=== PATIENT | female | born 1940 | race Caucasian/White ===

== ENCOUNTER 2023-10-07 14:58 | Inpatient (IN) | payer MEDICARE, OTHER, SELFPAY ==
[2023-10-07] VITALS (9 sets, daily range): BP systolic 94–141; BP diastolic 46–84; BMI 13.2
--- NOTE | 2023-10-07 09:57 | EDRN ---
Rylee Jerome PA in room w/ pt.
--- NOTE | 2023-10-07 10:01 | ED.GENMED ---
History of Present Illness
General
Chief Complaint: Back Pain
Source: patient
Time Seen by Provider: 10/07/23 09:54
Travel History
Have you had any contact with someone who has COVID-19?: No
Do you have any symptoms of coronavirus? Fever > 100 degrees, chills, cough, shortness of breath, sore throat, loss of taste or smell, muscle aches, or headache?: No
History of Present Illness
History of Present Illness:
82-year-old female presenting to the ER via EMS from [facility] for evaluation of diffuse lower back pain that has been ongoing for a few days, recently started on Bactrim for urinary tract infection, staff reportedly concerned about failure
to thrive. Patient has a noted history for dementia but is apparently in independent living at the [facility]. Patient denies any falls or traumatic injuries, focal weakness or numbness, saddle anesthesia, urinary
frequency/urgency/dysuria/hematuria/urinary incontinence or bowel incontinence, fevers or infectious symptoms. Patient has no other concerns at this time. Did not take anything for the pain prior to arrival and is unsure if she was given anything
for pain over the last few days.
Past History
Past History
ED Past Medical History: HTN, Psychiatric and Other (Dementia)
ED Past Surgical History: Cholecystectomy and Gynecological
Social History
Tobacco: Former smoker
Alcohol: None
Drug: None
Living: assisted living
Review of Systems
Review of Systems
All Other Systems: ROS reviewed and negative except as documented in HPI and ROS
Phy Exam
Physical Exam
Physical Exam:
GENERAL: Alert , in no apparent distress, very thin and cachectic, muscle wasting noted
EYE: Clear conjunctiva
NECK: Supple
ENT: o/p clr, mmm.
CARDIAC: Regular rate and rhythm, systolic murmur at the left sternal border.
LUNGS: Clear breath sounds bilaterally, no acute respiratory distress, no wheezes/rales/rhonchi
ABDOMEN: Soft, without focal tenderness, no r/g, no cvat
Back: Patient able to sit up in bed but has some discomfort while attempting movement. Diffusely tender to palpation within the lumbar spine
NEUROLOGICAL: Alert and oriented to self and place but was unable to tell me the year
SKIN: Warm and dry, skin intact.
MUSCULOSKELETAL: No edema, well perfused.
PSYCH: Normal and appropriate interaction.
Scores
Heart Failure Risk
Heart Failure Risk Score: Not Applicable
Heart Score for Chest Pain Patients
STEMI patient?: Not applicable
Withdrawal Assessment of Alcohol
Withdrawal Assessment Completed?: Not applicable
Course
Orders/Labs/Results
Orders:
Orders
10/07/23 10:00
Acetaminophen [Tylenol] 650 mg PO NOW STA
Lidocaine [Lidocaine 4% Patch] 1 patch TOPICAL NOW STA
10/07/23 10:17
Complete Blood Count/With Diff Urgent
Comprehensive Metabolic Panel Urgent
Ferritin Urgent
Comment: ADD
Folate Urgent
Comment: ADD
Iron Urgent
Comment: ADD
Total Iron Binding Urgent
Comment: ADD
Vitamin B12 Urgent
Comment: ADD
10/07/23 10:51
CT Abd/pel Without Iv Or Oral Urgent
Comment:
Reason For Exam: renal failure, recent UTI, back pain
10/07/23 11:46
US Abdomen Complete/Upper Urgent
Comment:
Reason For Exam: abnormal CT, possible carlos enrique, back pain
10/07/23 13:27
0.9% Sodium Chloride 1000 ml [Nss] 1,000 ml IV BOLUS
10/07/23 14:19
Bladder Scan As Directed
Follow Bladder Retention/Intermittent Cath Algorithm?: Yes
PRN if no void in __ hours: 6
Frequency: Per Retention Algorithm
If Bladder Scan Result >: 400
then:: Straight cath
Straight Cath As Directed
Frequency: Per Retention Algorithm
Additional Instructions: straight cath as needed per acute urinary retention algorithm for 24 hrs
Additional Instructions: for bladder scan greater than 400 mL
10/07/23 14:23
Add On- LAB Routine
Tests Added?: iron, ferritin, tibc, folate, vit b12
Admit/Transfer Patient As Directed
Co-Sign Provider:
Level of Care: Inpatient admission
Assign to:: Medical/Surgical
Physician / Group: Sheu
Diagnosis: JESUS
Reason for Hospitalization: IVFs
Expected length of stay greater than two midnights?: Yes
ELOS- Estimated Length of Stay in days: 3
I certify the patient meets the requirements for IP care: Yes
10/07/23 14:42
Code Status As Directed
Resuscitation Status: Do not resuscitate
Reached after discussion with pt or family/Healthcare POA: Yes
DNR Bracelet Application ONCE
10/07/23 16:16
Urinalysis Reflex To Culture Urgent
Date Specimen was Collected: 10/07/23
Time Specimen was Collected: 16:06
Abnormal Lab Results
10/07/23
10:17
RBC 2.66 L 10^6/uL
(4.20-5.40)
Hgb 9.3 L g/dL
(12.0-16.0)
Hct 27.3 L %
(37.0-47.0)
MCV 102.6 H fL
(81.0-99.0)
MCH 35.0 H pg
(27.0-31.0)
RDW 15.8 H %
(11.5-14.5)
Chloride 111 H mmol/L
(98-107)
Carbon Dioxide 18 L mmol/L
(22-30)
BUN 46 H mg/dl
(7-17)
Creatinine 2.3 H mg/dL
(0.6-1.0)
TIBC 161 L ug/dl
(265-497)
Ferritin 915.0 H ng/ml
(11.1-264.0)
AST 37 H U/L
(14-36)
Alkaline Phosphatase 150 H U/L
(38-126)
Albumin 3.1 L g/dl
(3.5-5.0)
10/07/23 10:17
10/07/23 10:17
Vital Signs
Initial and Last Documented VS:
Initial Vital Signs
Temp Pulse Resp BP Pulse Ox
97.5 F 74 20 141/72 96
10/07/23 09:42 10/07/23 09:42 10/07/23 09:42 10/07/23 09:42 10/07/23 09:42
Last Documented Vital Signs
Temp Pulse Resp BP Pulse Ox
97.5 F 84 16 101/84 96
10/07/23 09:42 10/07/23 16:02 10/07/23 16:02 10/07/23 16:02 10/07/23 16:02
MDM/Problems Addressed
Differential Diagnosis Includes:
Lumbar strain, spinal stenosis, compression fracture, UTI/pyelonephritis considered given patient is currently being treated for UTI however given the bilateral nature of symptoms I am less suspicious for this
MDM/Problems Addressed:
82-year-old female presenting to the emergency department for evaluation via EMS from her independent living facility for evaluation of lower back pain, symptoms initially were right-sided yesterday, today diffuse lower back. Patient is very thin
in appearance, cachectic but is otherwise hemodynamically stable. She is smiling and pleasant and does not appear in any acute distress. Labs, urine, x-ray images ordered. Will also treat pain with Tylenol and lidocaine patch.
*Radiology
Radiology exam reviewed: radiology read reviewed (L1 and L4 age-indeterminate compression fracture. There is intrahepatic dilatation and radiology is recommended to obtain an ultrasound to better evaluate)
*Pulse Oximetry
Patient hypoxic: no
*Circle Edger Interpretation
Rate: normal
Rhythm: sinus
*Critical Care Note
Total Time (30-74mins, 75-104mins- exclusive of procedures): Not Applicable
Data Reviewed
Source: family
Patient Management
Discussion with other providers: Hospitalist, [facility] staff and Other
Escalation/DeEscalation of care consider admission/obs:
10/07/2023 1320 PM: Based off of patient's labs I do not have anything to compare to so I contacted patient's senior living who does not have any pertinent labs to compare. I spoke with patient's daughter, Tonya, who states that in July patient
did have a fall and was told that she had some compression fractures but nothing was being done about the compression fractures and was pain management only. She also notes that around a year or so ago patient was at [facility] for
dehydration and had abnormal kidney function at that time but daughter is unsure as to if this is a chronic issue. Attempting to obtain records from [place] as well as daughter is going to look through patient's [facility] records and contact us
back.
10/07/2023 1328 PM: Patient's daughter returned call and her last creatinine as an outpatient was 1.67 in April 2023, BUN at that time of 31. Based off patient's presentation, lack of oral intake, worsening kidney function will admit for further
evaluation. IV fluids ordered. Hospitalist is aware and accepts for continued evaluation and treatment.
ED Attending Note
-
Portions of this chart may have been created with voice recognition software.� Occasional wrong word or��sound alike� substitutions may have occurred due to the inherent limitations of voice recognition software.
Discharge Plan
Departure
Patient Disposition: Admit
Date of Disposition: 10/07/23
Time of Disposition: 13:27
Presentation/result/management discussed w/ accepting MD/DO: Hospitalist
Discharge Problem:
JESUS (acute kidney injury), Anemia, Compression fx, lumbar spine
Interventions
Interventions:
*Risk Screen - Suicide Last Done: 10/07/23 09:40
*General Assessment Last Done: 10/07/23 09:40
*Neglect/Abuse Screening Last Done: 10/07/23 09:40
ED- Fall Risk Assessment Last Done: 10/07/23 09:40
*ED COVID-19 Vaccine History Last Done: 10/07/23 09:40
ED-Musculoskeletal Assessment Last Done: 10/07/23 09:55
[2023-10-07] MEDS: LIDOCAINE 4% PATCH 1 PATCH TOPICAL (10:08)
[2023-10-07] MEDS: TYLENOL 650 MG PO (10:09)
[2023-10-07 10:46] LABS: % Basophils 0.5 % (0-2); % Eosinophils 2.9 % (0-6); % Immature Granulocytes 0.5 % (0-0.5); % Lymphocytes 29.8 % (20.5-51.1); % Monocytes 3.1 % (1.7-9.3); % Neutrophils 63.2 % (42.2-75.2); Absolute Eosinophils 0.2 10^3/uL (0-0.7); Absolute Lymphocytes 1.6 10^3/uL (1.2-3.4); Absolute Monocytes 0.2 10^3/uL (0.1-0.6); Absolute Neutrophils 3.5 10^3/uL (1.4-6.5); Hematocrit 27.3 % (37.0-47.0); Hemoglobin 9.3 g/dL (12.0-16.0); Mean Corp Hgb Conc. 34.1 g/dL (33.0-37.0); Mean Corpuscular Volume 102.6 fL (81.0-99.0); Mean Platelet Volume 9.2 fL (7.4-10.4); Nucleated Red Blood Cells % 0 %; Platelet Count 338 10^3/uL (130-400); Red Blood Cell Count 2.66 10^6/uL (4.20-5.40); Red Cell Dist. Width 15.8 % (11.5-14.5); White Blood Cell Count 5.5 10^3/uL (4.8-10.8)
[2023-10-07 10:47] LABS: ALT (SGPT) 18 U/L (0-35); AST (SGOT) 37 U/L (14-36); Albumin 3.1 g/dl (3.5-5.0); Alkaline Phosphatase 150 U/L (38-126); Blood Urea Nitrogen 46 mg/dl (7-17); Calcium 9.8 mg/dl (8.4-10.2); Carbon Dioxide 18 mmol/L (22-30); Chloride 111 mmol/L (98-107); Estimated Creatinine Clearance 11 ml/min; Glucose 95 mg/dl (70-99); Potassium 4.3 mmol/L (3.5-5.1); Sodium 135 mmol/L (135-145); Total Bilirubin 0.8 mg/dl (0.2-1.3); Total Protein 6.7 g/dl (6.3-8.2); eGFR 20.57
--- NOTE | 2023-10-07 13:30 | EDRN ---
Pt was incontinent of large amount of urine in depends and changed w/good pericare at this time.
[2023-10-07] MEDS: NSS 1000 IV ×2 (14:07→19:33)
--- NOTE | 2023-10-07 14:31 | HPS.HSE ---
Addendum entered and electronically signed by Mary Santoyo MD 10/08/23 13:04:
discussed with patient's daughter Giovana who verbalized her understanding of code status and confirmed her agreement with patient's decision to be DNR. Code status updated accordingly
Addendum entered and electronically signed by Mary Santoyo MD 10/07/23 19:49:
I saw and examined the patient.
The [facility] NURSE or PA's note was reviewed and I agree with the note.
Comment:
82F HTN CKD COPD Rheumatoid Arthritis Dementia Anxiety/Depression presents with Bridges increased back pain concerns with failure to thrive poor oral intake. On Bactrim for UTI. Labs concerning for mild macrocytic anemia, anemia of chronic disease,
non-iron deficient, B12 wnl and JESUS on CKD initial Cr 2.3 (reported baseline 1.6). CT abd/pelvis noted moderate L1 and L4 indeterminate compression fractures and moderate intrahepatic dilatation. Abd US further noted intra and extrahepatic biliary
dilatation. Back pain improved with lidocaine patch. Endorsed chronic low oral intake, son Johnathon reports ongoing for years, 81 lbs consistent baseline per son.
Physical Exam
General: No pallor, cyanosis, or jaundice. Cachectic appearing
HEENT: Throat clear. PERRLA Normocephalic atraumatic
NECK: Supple. No JVD Carotid Bruits
RESPIRATORY: Lungs clear to auscultation. No crackles wheezes stridor
CVS: S1, S2 normal. RRR. No murmur, rub or gallop.
ABDOMEN: Soft, non-tender. No distension. BS+/normal.
EXTREMITIES: No peripheral cyanosis or edema.
CREDIT COMPLIANCE OFFICER: AOx3 conversant
#JESUS on CKDIII
#Failure to Thrive
#Hx UTI recently on Bactrim
#L1 L4 Compression fx indeterminate age
IVF gentle hydration
urinalysis appreciated not suggestive UTI
hold off on further abx for now
monitor renal function
pain control
dietary consult
PT/OT eval
Code Status Full Code for now, patient seems to indicate desire for DNR status however given history Dementia unclear capacity will confirm with daughter (called but have not been able to reach, discussed with son Johnathon who agrees with DNR status but
also defers confirmation to pt's daughter Giovana)
Original Note:
Family Physician
-
Family Physician: Chris Hall
Chief Complaint
-
Back Pain
History of Present Illness
Patient is an 82 y/o female past medical history of HTN and CKD who presents with increased lower back pain. Patient resides at the [facility], and staff is concerned about failure to thrive. Patient was recently started on Bactrim for a
urinary tract infection. Work-up in the emergency department revealed evidence of L1 and L4 compression fracture. Patient was also noted to have Cr 2.3 (per family previous Cr 1.67).
Medical History
Past Medical History
Past Medical History: Reports Other
Additional Past Medical History:
Essential Hypertension
CKD Stage IV
COPD
Rheumatoid Arthritis
Glaucoma
Dementia
Anxiety/Depression
Past Surgical History: Reports Other
Additional Past Surgical History:
Cholecystectomy
Hysterectomy
Social History
Tobacco: Former Smoker
Living: Assisted Living
Family History
Family History: Not pertinent
Allergies / Home Medications
Allergies reflects when Allergies were last updated in [facility].
Home Medications with original date entered in [facility]
Allergy/Medication List:
Allergies
Allergy/AdvReac Type Severity Reaction Status Date / Time
No Known Allergies Allergy Unverified 10/07/23 09:40
Home Medications
acetaminophen 500 mg tablet (Acetaminophen Extra Strength) 1,000 mg PO DAILY Pain 10/07/23
acetaminophen 500 mg tablet (Acetaminophen Extra Strength) 1,000 mg PO Q4HPRN PRN lower back pain 10/07/23
albuterol sulfate 2.5 mg/3 mL (0.083 %) solution for nebulization 2.5 mg inhalation Q4H PRN shortness of breath 10/07/23
diphenhydramine 25 mg-acetaminophen 500 mg tablet (Tylenol PM Extra Strength) 1 tab PO HS pain and sleep 10/07/23
donepezil 10 mg tablet 10 mg PO HS Neurological Condition 10/07/23
dorzolamide 22.3 mg-timolol 6.8 mg/mL eye drops 1 drp BOTH EYES BID Eye Condition 10/07/23
lactobacillus combination no.4 3 billion cell capsule (Probiotic) 3,000 mmu cells PO DAILY with antibiotic use 10/07/23
latanoprost 0.005 % eye drops 1 drp BOTH EYES HS Eye Condition 10/07/23
loperamide 2 mg capsule 2 mg PO Q6H PRN loose stools 10/07/23
methotrexate sodium 2.5 mg tablet 7.5 mg PO SANTIAGO@0800 arthritis 10/07/23
miconazole nitrate 2 % topical cream 1 applic topical BID PRN labial itchiness 10/07/23
mirtazapine 15 mg tablet 15 mg PO HS Neurological Condition 10/07/23
nystatin 100,000 unit/gram topical cream 1 applic topical TID rash 10/07/23
ondansetron HCl 4 mg tablet 4 mg PO Q8HPRN PRN nausea and vomiting 10/07/23
potassium chloride 20 mEq tablet,extended release(part/cryst) 20 meq PO DAILY Electrolyte Repletion 10/07/23
sertraline 25 mg tablet 25 mg PO DAILY Mental Health 10/07/23
sulfamethoxazole 800 mg-trimethoprim 160 mg tablet (Bactrim DS) 1 tab PO BID UTI 10/07/23
umeclidinium 62.5 mcg-vilanterol 25 mcg/actuation powdr for inhalation (Anoro Ellipta) 1 inh inhalation DAILY Lung/Breathing Issues 10/07/23
Review of Systems
-
A 12 point ROS was completed and negative except as noted: Yes
Constitutional: Denies Fever
Respiratory: Denies Cough or Trouble Breathing
Cardiac: Denies Chest Pain or Palpitations
Abdomen/GI: Denies Abdominal Pain
: Reports Dysuria
Physical Exam
Vital Signs
Vital Signs
Temp Pulse Resp BP Pulse Ox
97.5 F 80 16 121/76 97
10/07/23 09:42 10/07/23 14:04 10/07/23 14:04 10/07/23 14:04 10/07/23 14:04
Physical Exam
General: Comfortable and Cachectic (Temporal Wasting)
HEENT: Anicteric and Moist mucous membranes
Respiratory: Clear and Non Labored Respirations
Cardiac: S1/S2 and Regular Rhythm
GI: Soft and Non Tender
Musculoskeletal: No Clubbing, No Cyanosis and No Edema
Skin: Warm and Dry
Neuro: Awake, Alert and Oriented (Correctly able to tell me she is at [facility], the correct year 2023 (incorrect month), and the president )
Laboratory Results
-
10/07/23 10:17
10/07/23 10:17
Laboratory Results
Total Bilirubin 0.8 mg/dl (0.2-1.3) 10/07/23 10:17
AST 37 U/L (14-36) H 10/07/23 10:17
ALT 18 U/L (0-35) 10/07/23 10:17
Alkaline Phosphatase 150 U/L (38-126) H 10/07/23 10:17
Data Reviewed
-
Lab Data: Labs Reviewed by me
Impression/Plan
-
JESUS on CKD IV, likely secondary to recent Bactrim
-Stop Bactrim
-Continue IVFs
-Recheck creatinine AM
L1 and L4 Compression Fractures
-Continue Lidocaine patch
-Continue Tylenol 1000mg TID
-Avoid NSAIDs
Recent UTI
-Stop Bactrim due to JESUS
-Recheck urinalysis as patient continues to reports dysuria
Macrocytic Anemia, likely anemia of chronic disease
-Check vitamin b12 and folate
COPD, no acute exacerbation
-Continue Anoro Ellipta or equivalent
Rheumatoid Arthritis
-Patient maintained on methotrexate as outpatient
Dementia
-Continue donepezil
-Monitor for mood/behavior changes during hospitalization
Anxiety/Depression
-Continue sertraline and mirtazapine
Glaucoma
-Continue latanoprost, dorzolamide-timolol
Severe Protein Calorie Malnutrition
-Consult Dietary
DVT proph: SC Heparin
Code Status: DNR per patient. Did attempt to contact patient's daughter without answer
[2023-10-07 15:31] LABS: Iron 82 ug/dl (37-170)
[2023-10-07 15:40] LABS: Percent Saturation 50 % (20-50); Total Iron Binding Capacity 161 ug/dl (265-497)
[2023-10-07 16:32] LABS: Urine Albumin Trace (Neg - Trace); Urine Bilirubin Negative (Negative); Urine Character Clear (Clear); Urine Color Yellow; Urine Glucose Negative (Negative); Urine Ketone Negative (Negative); Urine Leukocyte Negative (Negative); Urine Nitrite Negative (Negative); Urine Occult Blood 4+ (Negative); Urine Specific Gravity 1.015 (<1.030); Urine Urobilinogen Negative (Neg - 1+)
[2023-10-07 16:43] LABS: Urine Red Blood Cell 30-40 /HPF (0-2); Urine Squamous Cell 0-2 /LPF (Few); Urine White Cell None Seen /HPF (0-5)
[2023-10-07 17:01] LABS: Folate 3.7 ng/ml (2.76-20); Vitamin B12 728 pg/ml (239-931)
--- NOTE | 2023-10-07 17:25 | EDRN ---
Pt requested toi garay and it was brought to her room at this time.
[2023-10-07] MEDS: TYLENOL 1000 MG PO (19:33)
[2023-10-07] MEDS: HEPARIN 5000 UNITS SC (19:47)
[2023-10-07] MEDS: COSOPT EYE DROPS 1 DROP BOTH EYES (21:33)
--- NOTE | 2023-10-07 22:13 | W.PN.UPDATE ---
Update Note
Progress Note Update
Called to the patient`s room to assess the patient, the nursing staff is reporting diarrhea and stool is coming from vaginal area that noted by 2 nurses. Daughter at bedside mentioning that is new for the patient. Patient has WIG MAKER surgical history of
hysterectomy. I tried to exam the patient, but is very sore to be touched, not cooperative, and refused the exam. WIG MAKER consult was placed, daughter was in the room and updated.
[2023-10-07] MEDS: VISBIOME 2 CAP PO (22:57)
[2023-10-07] MEDS: MELATONIN 5 MG PO (22:57)
[2023-10-07] MEDS: REMERON 15 MG PO (22:57)
[2023-10-07] MEDS: XALATAN OPHTHALMIC SOLUTION 1 DROP BOTH EYES (22:58)
[2023-10-07] MEDS: ARICEPT 10 MG PO (23:42)
[2023-10-08] VITALS: BP 151/76
[2023-10-08] MEDS: TYLENOL PO (00:24)
[2023-10-08 00:59] VITALS: BP 131/73
[2023-10-08 01:10] VITALS: BMI 13.0
[2023-10-08] MEDS: HEPARIN 5000 UNITS SC ×4 (01:51→23:52)
[2023-10-08 07:00] VITALS: BP 113/61
[2023-10-08] MEDS: SPIRIVA RESPIMAT 2.5 MCG 2 PUFF INH (07:20)
[2023-10-08] MEDS: STRIVERDI RESPIMAT 2 PUFF INH (07:21)
[2023-10-08 08:05] LABS: Hematocrit 23.7 % (37.0-47.0); Hemoglobin 8.2 g/dL (12.0-16.0); Mean Corp Hgb Conc. 34.6 g/dL (33.0-37.0); Mean Corpuscular Hgb 34.6 pg (27.0-31.0); Mean Platelet Volume 9.2 fL (7.4-10.4); Platelet Count 258 10^3/uL (130-400); Red Blood Cell Count 2.37 10^6/uL (4.20-5.40); Red Cell Dist. Width 15.5 % (11.5-14.5); White Blood Cell Count 7.7 10^3/uL (4.8-10.8)
[2023-10-08 08:23] LABS: ALT (SGPT) 14 U/L (0-35); AST (SGOT) 32 U/L (14-36); Albumin 2.3 g/dl (3.5-5.0); Alkaline Phosphatase 110 U/L (38-126); Blood Urea Nitrogen 47 mg/dl (7-17); Calcium 9.3 mg/dl (8.4-10.2); Carbon Dioxide 16 mmol/L (22-30); Chloride 113 mmol/L (98-107); Estimated Creatinine Clearance 12 ml/min; Glucose 86 mg/dl (70-99); Magnesium 1.7 mg/dl (1.6-2.3); Potassium 4.1 mmol/L (3.5-5.1); Sodium 137 mmol/L (135-145); Total Bilirubin 0.5 mg/dl (0.2-1.3); Total Protein 5.5 g/dl (6.3-8.2); eGFR 24.33
--- NOTE | 2023-10-08 08:27 | W.PN.HOSP.TC ---
Today's Communication/Plan
-
cont gentle IV hydration
pain control
PT/OT
further vaginal fistula evaluation treatment as per CRS, pending daughter's decision
Assessment / Plan
Assessment / Plan
Physical Exam
General: No pallor, cyanosis, or jaundice. Cachectic appearing
HEENT: Throat clear. PERRLA Normocephalic atraumatic
NECK: Supple. No JVD Carotid Bruits
RESPIRATORY: Lungs clear to auscultation. No crackles wheezes stridor
CVS: S1, S2 normal. RRR.� No murmur, rub or gallop.
ABDOMEN: Soft, non-tender. No distension. BS+/normal.
EXTREMITIES: No peripheral cyanosis or edema.
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
82F HTN CKD COPD Rheumatoid Arthritis Dementia Anxiety/Depression presents with Bridges increased back pain concerns with failure to thrive poor oral intake.� On Bactrim for UTI. Labs concerning for mild macrocytic anemia, anemia of chronic disease,
non-iron deficient, B12 wnl and JESUS on CKD initial Cr 2.3 (reported baseline 1.6).� CT abd/pelvis noted moderate L1 and L4 indeterminate compression fractures and moderate intrahepatic dilatation. Abd US further noted intra and extrahepatic biliary
dilatation.� Back pain improved with lidocaine patch.� Endorsed chronic low oral intake, son Johnathon reports ongoing for years, 81 lbs consistent baseline per son. Patient later in evening passed stool and diarrhea via vagina witnessed by nurse staff
and daughter at bedside. Patient has hx hysterectomy �
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
CRS eval appreciated awaiting daughter's decision regarding further evaluation possible surgical intervention
JESUS on CKD IV, likely secondary to recent Bactrim
-Stop Bactrim
-Continue IVFs
-Monitor renal function.
L1 and L4 Compression Fractures
-Continue Lidocaine patch
-Continue Tylenol 1000mg TID
-Avoid NSAIDs
-PT/OT appreciated SNF rehab
Recent UTI
-Stop Bactrim due to JESUS
-urinalysis neg for uti
Macrocytic Anemia, likely anemia of chronic disease
-vitamin b12 and folate wnl
-iron non-deficient though iron panel indicates anemia of chronic disease
COPD, no acute exacerbation
-Continue Anoro Ellipta or equivalent
Rheumatoid Arthritis
-Patient maintained on methotrexate as outpatient
Dementia
-Continue donepezil
-Monitor for mood/behavior changes during hospitalization
Anxiety/Depression
-Continue sertraline and mirtazapine
Glaucoma
-Continue latanoprost, dorzolamide-timolol
Severe Protein Calorie Malnutrition
-Consult Dietary
DVT proph: SC Heparin
Code Status: DNR per patient, confirmed patient's son and daughter in agreement with patient's decision
discussed with patient's daughter Pao over the phone
I spent a total of 50 minutes with the patient or on the floor. More than 50% of this time involved counseling and coordination of care.
Anticipated Discharge: 24 - 48 hours
Subjective/Interval History
-
Date of Service: October 08, 2023
Reporting back pain. Lethargic but arousable. Overnight events noted vaginal passage of stool diarrhea. VSS otherwise stable. No leukocytosis. Kidney function improving.
Objective Data
-
Labs:
Laboratory Results
10/08/23
07:41
WBC 7.7
Hgb 8.2 L
Hct 23.7 L
Plt Count 258 D
Sodium 137
Potassium 4.1
Chloride 113 H
Carbon Dioxide 16 L
BUN 47 H
Creatinine 2.0 H
Glucose 86
Calcium 9.3
Total Bilirubin 0.5
AST 32
ALT 14
Alkaline Phosphatase 110
Vital Signs:
Vital Signs
Temp Pulse Resp BP Pulse Ox
97.2 F 78 14 131/73 97
10/08/23 00:59 10/08/23 07:27 10/08/23 07:27 10/08/23 00:59 10/08/23 07:27
[2023-10-08 08:53] LABS: TSH Reflex To Free T4 2.25 uIU/ml (0.47-4.68)
[2023-10-08 09:10] VITALS: BP 121/60; BP 126/71; PULSE 76
[2023-10-08] MEDS: TYLENOL 1000 MG PO ×3 (09:59→21:03)
[2023-10-08] MEDS: LIDOCAINE 4% PATCH 1 PATCH TOPICAL (09:59)
[2023-10-08] MEDS: COSOPT EYE DROPS 1 DROP BOTH EYES ×2 (09:59→21:04)
[2023-10-08] MEDS: VISBIOME 1 CAP PO (10:00)
[2023-10-08] MEDS: ZOLOFT 25 MG PO (10:00)
[2023-10-08] MEDS: NSS 1000 IV (10:02)
--- NOTE | 2023-10-08 11:26 | CM ---
met with patient at bedside.i also called daughter/rhys greene to confirm info received from patient.she lives at [facility],ambulates with a walker,needs A with her adl's.she is [facility] patient's pcp is dr drew and the [facility] supplies her
meds,she has never had a vn but has been at [facility] in july 2023 for a month.patient is adm with desire,L1 and L4 compression fractures. will need pt/ot evals.
plan is home with services vs short term skilled rehab.
--- NOTE | 2023-10-08 13:02 | CON.CRS ---
Consultation
-
Date/Time Consultation Requested: 10/08/2023, 12:14
Date/Time Consultation Performed: 10/08/2023, 14:05
Requesting Provider: Mary Santoyo MD
Performing Provider: Davie Lozano MD
Reason for Consultation: stool in vagina
Medical History
-
Chief Complaint: stool in vagina
History of Present Illness:
82yo female presents to the ER from [facility] with failure to thrive. Last night nursing staff noted stool coming from her vagina on two occasions, per record. The patient states this has been going on for a few weeks. Per her daughter, the
patient told her that years ago and she went to a GI doctor, underwent an exam, and she was told everything was 'fine' and she hadn't heard anything since. She denies blood or urine from her vagina. Her daughter believes she may have had UTIs about
once a year. She states she had a colonoscopy a 'long time ago' at [place] but doesn't remember the results. Apparently she had a tough time getting through the entire colon, as it was torturous and it was not completed. She then underwent a
virtual colonoscopy and visualization was poor. Per daughter, via phone, she has a history of diverticulitis - likely at least 5 attacks, last one about 10 years ago. She was admitted once to the hospital in [place] for this, but otherwise was
treated at home. She has a previous past surgical history of a cholecystectomy and a hysterectomy. In the ER she underwent a CT abd/pelvis which noted moderate L1 and L4 indeterminate compression fractures and moderate intrahepatic dilatation. She
then underwent an abdominal ultrasound which further noted intra and extrahepatic biliary dilatation. Creatinine on admission was 2.3, now 2.0. We have been consulted for further surgical opinion.
Past Medical History
Past Surgical History: Cholecystectomy and Gynecological (Hysterectomy)
Social History
Tobacco: Former Smoker
Family History
Family History: Reviewed & Not Pertinent
Allergies / Home Medications
Allergy/AdvReac Type Severity Reaction Status Date / Time
No Known Allergies Allergy Unverified 10/07/23 09:40
Medication Instructions Recorded Confirmed Type
acetaminophen 500 mg tablet 1,000 mg PO DAILY Pain 10/07/23 10/07/23 History
(Acetaminophen Extra Strength)
acetaminophen 500 mg tablet 1,000 mg PO Q4HPRN PRN lower back 10/07/23 10/07/23 History
(Acetaminophen Extra Strength) pain
albuterol sulfate 2.5 mg/3 mL 2.5 mg inhalation Q4H PRN 10/07/23 10/07/23 History
(0.083 %) solution for nebulization shortness of breath
diphenhydramine 25 1 tab PO HS pain and sleep 10/07/23 10/07/23 History
mg-acetaminophen 500 mg tablet
(Tylenol PM Extra Strength)
donepezil 10 mg tablet 10 mg PO HS Neurological Condition 10/07/23 10/07/23 History
dorzolamide 22.3 mg-timolol 6.8 1 drp BOTH EYES BID Eye Condition 10/07/23 10/07/23 History
mg/mL eye drops
lactobacillus combination no.4 3 3,000 mmu cells PO DAILY with 10/07/23 10/07/23 History
billion cell capsule (Probiotic) antibiotic use
latanoprost 0.005 % eye drops 1 drp BOTH EYES HS Eye Condition 10/07/23 10/07/23 History
loperamide 2 mg capsule 2 mg PO Q6H PRN loose stools 10/07/23 10/07/23 History
methotrexate sodium 2.5 mg tablet 7.5 mg PO SANTIAGO@0800 arthritis 10/07/23 10/07/23 History
miconazole nitrate 2 % topical 1 applic topical BID PRN labial 10/07/23 10/07/23 History
cream itchiness
mirtazapine 15 mg tablet 15 mg PO HS Neurological Condition 10/07/23 10/07/23 History
nystatin 100,000 unit/gram topical 1 applic topical TID rash 10/07/23 10/07/23 History
cream
ondansetron HCl 4 mg tablet 4 mg PO Q8HPRN PRN nausea and 10/07/23 10/07/23 History
vomiting
potassium chloride 20 mEq 20 meq PO DAILY Electrolyte 10/07/23 10/07/23 History
tablet,extended release(part/cryst) Repletion
sertraline 25 mg tablet 25 mg PO DAILY Mental Health 10/07/23 10/07/23 History
sulfamethoxazole 800 1 tab PO BID UTI 10/07/23 10/07/23 History
mg-trimethoprim 160 mg tablet
(Bactrim DS)
umeclidinium 62.5 mcg-vilanterol 1 inh inhalation DAILY 10/07/23 10/07/23 History
25 mcg/actuation powdr for Lung/Breathing Issues
inhalation (Anoro Ellipta)
Review of Systems
-
Unable to obtain full review of systems at this time due to: Dementia
History Source: Patient
Abdomen/GI: No Symptoms
: Other (stool in vagina noted)
A 10 point review of systems was completed, and was negative except as per HPI.
Physical Exam
Vital Signs
Temp 97.5 F 10/08/23 07:00
Pulse 78 10/08/23 07:27
Resp Rate 14 10/08/23 07:27
Blood pressure 113/61 10/08/23 07:00
SaO2 97 10/08/23 07:27
10/07/23 10/08/23 10/09/23
06:59 06:59 06:59
Actual Weight 36.4 kg
Body Mass Index (BMI) 13.0
Lab Results / Allergies
10/08/23 07:41
10/08/23 07:41
WBC 7.7 10^3/uL (4.8-10.8) 10/08/23 07:41
Hgb 8.2 g/dL (12.0-16.0) L 10/08/23 07:41
Hct 23.7 % (37.0-47.0) L 10/08/23 07:41
Plt Count 258 10^3/uL (130-400) D 10/08/23 07:41
Abs Immat Gran (auto) 0.0 10^3/uL (0-0.05) 10/07/23 10:17
Neutrophils % 63.2 % (42.2-75.2) 10/07/23 10:17
Allergy/AdvReac Type Severity Reaction Status Date / Time
No Known Allergies Allergy Unverified 10/07/23 09:40
Physical Exam
General: No Apparent Distress and Comfortable
GI: Soft, Non Tender and Non Distended
Rectal: Other (covered with ointment - unable to visualize, ANTHONY deferred, liquid stool noted in vagina)
Psych: Calm
Data Reviewed
-
CT Scan: Image Personally Visualized and interpreted, Report Reviewed by me and Discussed with Patient
Labs: Labs Reviewed by me and Discussed with Patient
Assessment / Plan
-
Assessment: 82yo female with failure to thrive with multiple lumbar compression fractures and JESUS, with stool noted in vagina
Plan: I spoke with daughter, Giovana, via phone. I had a conversation regarding patient's medical history. I explained that to rule out a fistula, given her inability to have IV contrast, she would likely need a CT with rectal contrast or flexible
sigmoidoscpy. If she did have a fistula, options include doing nothing and living with it, surgery, or a colostomy. I spoke to the daughter who will consider things.
[2023-10-08 15:00] VITALS: BP 114/57
[2023-10-08 16:45] VITALS: BMI 13.0
--- NOTE | 2023-10-08 18:29 | PTCARENOTE ---
Pt IV in RFA infiltrated. VAT called to assess/give new site.
[2023-10-08] MEDS: ARICEPT 10 MG PO (21:03)
[2023-10-08] MEDS: REMERON 15 MG PO (21:03)
[2023-10-08] MEDS: XALATAN OPHTHALMIC SOLUTION 1 DROP BOTH EYES (21:04)
[2023-10-08] MEDS: MELATONIN 5 MG PO (21:04)
[2023-10-08 23:07] VITALS: BP 150/86
[2023-10-09] MEDS: NSS 1000 IV (00:04)
[2023-10-09 07:00] VITALS: BP 126/61
[2023-10-09 07:32] LABS: Blood Urea Nitrogen 44 mg/dl (7-17); Carbon Dioxide 15 mmol/L (22-30); Chloride 113 mmol/L (98-107); Estimated Creatinine Clearance 14 ml/min; Glucose 89 mg/dl (70-99); Magnesium 1.6 mg/dl (1.6-2.3); Phosphorus 3.4 mg/dl (2.5-4.5); Potassium 3.9 mmol/L (3.5-5.1); Sodium 136 mmol/L (135-145); eGFR 29.57
--- NOTE | 2023-10-09 07:55 | W.PN.HOSP.TC ---
Today's Communication/Plan
-
IVF completed, cont monitoring renal function
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
pain control, tramadol prn, dilaudid for severe breakthrough pain
cont PT/OT
monitor H&H
Assessment / Plan
Assessment / Plan
Physical Exam
General: No pallor, cyanosis, or jaundice. Cachectic appearing
HEENT: Throat clear. PERRLA Normocephalic atraumatic
NECK: Supple. No JVD Carotid Bruits
RESPIRATORY: Lungs clear to auscultation. No crackles wheezes stridor
CVS: S1, S2 normal. RRR.� No murmur, rub or gallop.
ABDOMEN: Soft, non-tender. No distension. BS+/normal.
EXTREMITIES: No peripheral cyanosis or edema.
BURNER HAND: AOx3
82F HTN CKD COPD Rheumatoid Arthritis Dementia Anxiety/Depression presents with Bridges increased back pain concerns with failure to thrive poor oral intake.� On Bactrim for UTI. Labs concerning for mild macrocytic anemia, anemia of chronic disease,
non-iron deficient, B12 wnl and JESUS on CKD initial Cr 2.3 (reported baseline 1.6).� CT abd/pelvis noted moderate L1 and L4 indeterminate compression fractures and moderate intrahepatic dilatation. Abd US further noted intra and extrahepatic biliary
dilatation.� Back pain improved with lidocaine patch.� Endorsed chronic low oral intake, son Johnathon reports ongoing for years, 81 lbs consistent baseline per son. Patient later in evening passed stool and diarrhea via vagina witnessed by nurse staff
and daughter at bedside. Patient has hx hysterectomy �
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
CRS eval appreciated awaiting daughter's decision regarding further evaluation possible surgical intervention
JESUS on CKD IV, likely secondary to recent Bactrim
-Stop Bactrim
-Initial Cr 2.3 improved to 1.7 (near baseline 1.6 per reports)
-patient tolerating diet
-IVF completed monitor off
L1 and L4 Compression Fractures
-Continue Lidocaine patch
-Continue Tylenol 1000mg TID
-PT/OT appreciated SNF rehab
-tramadol prn mod severe pain, dilaudid for severe breakthrough pain
Recent UTI
-Bactrim stopped due to JESUS
-urinalysis neg for uti
Macrocytic Anemia, likely anemia of chronic disease
-vitamin b12 and folate wnl
-iron non-deficient though iron panel indicates anemia of chronic disease
COPD, no acute exacerbation
-Continue Anoro Ellipta or equivalent
Rheumatoid Arthritis
-Patient maintained on methotrexate as outpatient
Dementia
-Continue donepezil
-Monitor for mood/behavior changes during hospitalization
Anxiety/Depression
-Continue sertraline and mirtazapine
Glaucoma
-Continue latanoprost, dorzolamide-timolol
Severe Protein Calorie Malnutrition
-Consult Dietary
DVT proph: SC Heparin
Code Status: DNR
discussed with patient's daughter Pao over the phone
I spent a total of 50 minutes with the patient or on the floor. More than 50% of this time involved counseling and coordination of care.
Anticipated Discharge: 24 - 48 hours
Subjective/Interval History
-
Date of Service: October 09, 2023
Objective Data
-
Labs:
Laboratory Results
10/09/23
05:42
WBC Pending
Hgb Pending
Hct Pending
Plt Count Pending
Sodium 136
Potassium 3.9
Chloride 113 H
Carbon Dioxide 15 L
BUN 44 H
Creatinine 1.7 H
Glucose 89
Calcium 9.0
Vital Signs:
Vital Signs
Temp Pulse Resp BP Pulse Ox
97.4 F 75 18 150/86 95
10/08/23 23:07 10/08/23 23:07 10/08/23 23:07 10/08/23 23:07 10/08/23 23:07
I&O
10/08/23 10/09/23 10/10/23
06:59 06:59 06:59
Intake Total 720 / 720
Balance 720 / 720
[2023-10-09 08:22] LABS: Hematocrit 22.5 % (37.0-47.0); Hemoglobin 7.7 g/dL (12.0-16.0); Mean Corp Hgb Conc. 34.2 g/dL (33.0-37.0); Mean Corpuscular Hgb 35.8 pg (27.0-31.0); Mean Corpuscular Volume 104.7 fL (81.0-99.0); Mean Platelet Volume 9.8 fL (7.4-10.4); Platelet Count 233 10^3/uL (130-400); Red Blood Cell Count 2.15 10^6/uL (4.20-5.40); Red Cell Dist. Width 15.4 % (11.5-14.5); White Blood Cell Count 8.6 10^3/uL (4.8-10.8)
[2023-10-09] MEDS: SPIRIVA RESPIMAT 2.5 MCG 2 PUFF INH (08:31)
[2023-10-09] MEDS: STRIVERDI RESPIMAT 2 PUFF INH (08:31)
--- NOTE | 2023-10-09 09:29 | PTCARENOTE ---
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 Contact Precautions initiated. Dr. Santoyo notified.
[2023-10-09] MEDS: LIDOCAINE 4% PATCH 1 PATCH TOPICAL (09:30)
[2023-10-09] MEDS: COSOPT EYE DROPS 1 DROP BOTH EYES ×2 (09:30→19:52)
[2023-10-09] MEDS: HEPARIN 5000 UNITS SC ×3 (09:31→23:12)
[2023-10-09] MEDS: VISBIOME 1 CAP PO (09:31)
[2023-10-09] MEDS: TYLENOL 1000 MG PO ×3 (09:31→22:13)
[2023-10-09] MEDS: ZOLOFT 25 MG PO (09:31)
--- NOTE | 2023-10-09 12:07 | CM ---
Met with patient at bedside and spoke with patient's daughter, Giovana, per patient's request to discuss discharge plan.
Explained the PT recommened SNF @ discharge. Patient was agreeable.
Printed list given to patient. Daughter will review later today and will identify preferences tomorrow
Plan: discharge to SNF when medically stable. CM will follow with patient/family to obtain SNF preferences
[2023-10-09] MEDS: NSS IV (12:15)
[2023-10-09 12:44] LABS: Hematocrit 25.1 % (37.0-47.0); Hemoglobin 8.5 g/dL (12.0-16.0)
[2023-10-09] MEDS: ULTRAM 25 MG PO (12:51)
[2023-10-09 15:00] VITALS: BP 123/74
[2023-10-09] MEDS: DILAUDID 0.25 MG IV (19:51)
[2023-10-09] MEDS: XALATAN OPHTHALMIC SOLUTION 1 DROP BOTH EYES (22:13)
[2023-10-09] MEDS: MELATONIN 5 MG PO (22:13)
[2023-10-09] MEDS: REMERON 15 MG PO (22:13)
[2023-10-09] MEDS: ARICEPT 10 MG PO (22:13)
[2023-10-09 23:28] VITALS: BP 102/60
[2023-10-10 07:00] VITALS: BP 136/69
--- NOTE | 2023-10-10 07:12 | W.PN.HOSP.TC ---
Today's Communication/Plan
-
pain control
PT/OT
discharge planning SNF rehab
Vaginal intestinal fistula evaluation/mgmt as per CRS
Assessment / Plan
Assessment / Plan
Physical Exam
General: No pallor, cyanosis, or jaundice. Cachectic appearing
HEENT: Throat clear. PERRLA Normocephalic atraumatic
NECK: Supple. No JVD Carotid Bruits
RESPIRATORY: Lungs clear to auscultation. No crackles wheezes stridor
CVS: S1, S2 normal. RRR.� No murmur, rub or gallop.
ABDOMEN: Soft, non-tender. No distension. BS+/normal.
EXTREMITIES: No peripheral cyanosis or edema.
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
82F HTN CKD COPD Rheumatoid Arthritis Dementia Anxiety/Depression presents with Bridges increased back pain concerns with failure to thrive poor oral intake.� On Bactrim for UTI. Labs concerning for mild macrocytic anemia, anemia of chronic disease,
non-iron deficient, B12 wnl and JESUS on CKD initial Cr 2.3 (reported baseline 1.6).� CT abd/pelvis noted moderate L1 and L4 indeterminate compression fractures and moderate intrahepatic dilatation. Abd US further noted intra and extrahepatic biliary
dilatation.� Back pain improved with lidocaine patch.� Endorsed chronic low oral intake, son Johnathon reports ongoing for years, 81 lbs consistent baseline per son. Patient later in evening passed stool and diarrhea via vagina witnessed by nurse staff
and daughter at bedside. Patient has hx hysterectomy �
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
CRS eval appreciated awaiting daughter's decision regarding further evaluation possible surgical intervention
JESUS on CKD IV, likely secondary to recent Bactrim
-Stop Bactrim
-Initial Cr 2.3 improved to 1.7 (near baseline 1.6 per reports)
-patient tolerating diet
-IVF completed monitor off
-Cr stable
Hypomagnesemia
-monitor and replete as necessary
L1 and L4 Compression Fractures
-Continue Lidocaine patch
-Continue Tylenol 1000mg TID
-PT/OT appreciated SNF rehab
-tramadol prn mod severe pain, dilaudid for severe breakthrough pain
Recent UTI
-Bactrim stopped due to JESUS
-urinalysis neg for uti
Macrocytic Anemia, likely anemia of chronic disease
-vitamin b12 and folate wnl
-iron non-deficient though iron panel indicates anemia of chronic disease
COPD, no acute exacerbation
-Continue Anoro Ellipta or equivalent
Rheumatoid Arthritis
-Patient maintained on methotrexate as outpatient
Dementia
-Continue donepezil
-Monitor for mood/behavior changes during hospitalization
Anxiety/Depression
-Continue sertraline and mirtazapine
Glaucoma
-Continue latanoprost, dorzolamide-timolol
Severe Protein Calorie Malnutrition
-Consult Dietary
DVT proph: SC Heparin
Code Status: DNR
discussed with patient's daughter Pao over the phone
I spent a total of 50 minutes with the patient or on the floor. More than 50% of this time involved counseling and coordination of care.
Anticipated Discharge: 24 - 48 hours
Subjective/Interval History
-
Date of Service: October 10, 2023
No acute distress resting comfortably in bed. Reports improvement in pain control with prn tramadol
Objective Data
-
Labs:
Laboratory Results
10/10/23
07:09
WBC Pending
Hgb Pending
Hct Pending
Plt Count Pending
Sodium Pending
Potassium Pending
Chloride Pending
Carbon Dioxide Pending
BUN Pending
Creatinine Pending
Glucose Pending
Calcium Pending
Vital Signs:
Vital Signs
Temp Pulse Resp BP Pulse Ox
98.0 F 67 16 102/60 96
10/09/23 23:28 10/09/23 23:28 10/09/23 23:28 10/09/23 23:28 10/09/23 23:28
I&O
10/09/23 10/10/23 10/11/23
06:59 06:59 06:59
Intake Total 720 / 720 1440 / 1440
Balance 720 / 720 1440 / 1440
[2023-10-10 07:59] LABS: Hematocrit 21.4 % (37.0-47.0); Hemoglobin 7.4 g/dL (12.0-16.0); Mean Corp Hgb Conc. 34.6 g/dL (33.0-37.0); Mean Corpuscular Hgb 35.4 pg (27.0-31.0); Mean Corpuscular Volume 102.4 fL (81.0-99.0); Mean Platelet Volume 9.9 fL (7.4-10.4); Platelet Count 182 10^3/uL (130-400); Red Blood Cell Count 2.09 10^6/uL (4.20-5.40); Red Cell Dist. Width 15.5 % (11.5-14.5); White Blood Cell Count 7.9 10^3/uL (4.8-10.8)
[2023-10-10] MEDS: SPIRIVA RESPIMAT 2.5 MCG 2 PUFF INH (08:07)
[2023-10-10] MEDS: STRIVERDI RESPIMAT 2 PUFF INH (08:07)
[2023-10-10 08:11] LABS: Blood Urea Nitrogen 39 mg/dl (7-17); Calcium 9.3 mg/dl (8.4-10.2); Carbon Dioxide 16 mmol/L (22-30); Chloride 113 mmol/L (98-107); Estimated Creatinine Clearance 15 ml/min; Glucose 88 mg/dl (70-99); Magnesium 1.5 mg/dl (1.6-2.3); Phosphorus 3.8 mg/dl (2.5-4.5); Potassium 3.8 mmol/L (3.5-5.1); Sodium 137 mmol/L (135-145)
[2023-10-10] MEDS: HEPARIN 5000 UNITS SC ×2 (08:59→16:14)
[2023-10-10] MEDS: COSOPT EYE DROPS 1 DROP BOTH EYES ×2 (08:59→19:22)
[2023-10-10] MEDS: VISBIOME 1 CAP PO (08:59)
[2023-10-10] MEDS: LIDOCAINE 4% PATCH 1 PATCH TOPICAL (08:59)
[2023-10-10] MEDS: TYLENOL 1000 MG PO ×3 (08:59→22:05)
[2023-10-10] MEDS: ZOLOFT 25 MG PO (08:59)
[2023-10-10 09:15] VITALS: BP 152/81
[2023-10-10] MEDS: ULTRAM 25 MG PO ×2 (10:06→22:05)
--- NOTE | 2023-10-10 11:41 | PTCARENOTE ---
Patient refused turning by RN. Extensive education provided about offloading wounds for healing. Patient indicated understanding, reinforcement needed.
[2023-10-10 15:00] VITALS: BP 106/62
[2023-10-10] MEDS: MAGNESIUM SULFATE 50 IV (16:14)
--- NOTE | 2023-10-10 16:15 | W.PN.UPDATE ---
Update Note
Progress Note Update
I called Giovana, patient's daughter, to discuss how she wants to move forward. I left a voicemail to call us back.
--- NOTE | 2023-10-10 16:26 | CM ---
Spoke with patient bedside and she referred me to her daughter.
Per daughter Giovana, patient is from [facility] and does received Physical therapy at the facility.
Discussed PT/OT recommendations for skilled rehab.
Per daughter, patient is probably going for a colostomy and would like skilled rehab.
Referrals placed to multiple facilities.
Will discuss accepted facilities once we hear back for daughter to make choice.
Plan: skilled rehab when medically stable.
[2023-10-10] MEDS: REMERON 15 MG PO (22:04)
[2023-10-10] MEDS: XALATAN OPHTHALMIC SOLUTION 1 DROP BOTH EYES (22:05)
[2023-10-10] MEDS: ARICEPT 10 MG PO (22:05)
[2023-10-10] MEDS: MELATONIN 5 MG PO (22:05)
[2023-10-10 23:10] VITALS: BP 95/50
[2023-10-11] MEDS: HEPARIN 5000 UNITS SC ×4 (00:25→23:43)
[2023-10-11 07:25] VITALS: BP 114/60
--- NOTE | 2023-10-11 07:28 | W.PN.HOSP.TC ---
Today's Communication/Plan
-
pain control
PT/OT
Colovaginal fistula mgmt as per CRS
Assessment / Plan
Assessment / Plan
Physical Exam
General: No pallor, cyanosis, or jaundice. Cachectic appearing
HEENT: Throat clear. PERRLA Normocephalic atraumatic
NECK: Supple. No JVD Carotid Bruits
RESPIRATORY: Lungs clear to auscultation. No crackles wheezes stridor
CVS: S1, S2 normal. RRR.� No murmur, rub or gallop.
ABDOMEN: Soft, non-tender. No distension. BS+/normal.
EXTREMITIES: No peripheral cyanosis or edema.
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
82F HTN CKD COPD Rheumatoid Arthritis Dementia Anxiety/Depression presents with Bridges increased back pain concerns with failure to thrive poor oral intake.� On Bactrim for UTI. Labs concerning for mild macrocytic anemia, anemia of chronic disease,
non-iron deficient, B12 wnl and JESUS on CKD initial Cr 2.3 (reported baseline 1.6).� CT abd/pelvis noted moderate L1 and L4 indeterminate compression fractures and moderate intrahepatic dilatation. Abd US further noted intra and extrahepatic biliary
dilatation.� Back pain improved with lidocaine patch.� Endorsed chronic low oral intake, son Johnathon reports ongoing for years, 81 lbs consistent baseline per son. Patient later in evening passed stool and diarrhea via vagina witnessed by nurse staff
and daughter at bedside. Patient has hx hysterectomy �
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
CRS eval appreciated awaiting daughter's decision regarding further evaluation possible surgical intervention
diverting colostomy and flex sig tentatively scheduled for Tues, daughter in favor of procedure but needs to further discuss with patient
JESUS on CKD IV, likely secondary to recent Bactrim
-Bactrim stopped
-Initial Cr 2.3 improved to 1.7 (near baseline 1.6 per reports)
-patient tolerating diet
-IVF completed monitor off
-Cr stable
Hypomagnesemia
-monitor and replete as necessary
L1 and L4 Compression Fractures
-Continue Lidocaine patch
-Continue Tylenol 1000mg TID
-PT/OT appreciated SNF rehab
-tramadol prn mod severe pain, dilaudid for severe breakthrough pain
Recent UTI
-Bactrim stopped due to JESUS
-urinalysis neg for uti
Macrocytic Anemia, likely anemia of chronic disease
-vitamin b12 and folate wnl
-iron non-deficient though iron panel indicates anemia of chronic disease
COPD, no acute exacerbation
-Continue Anoro Ellipta or equivalent
Rheumatoid Arthritis
-Patient maintained on methotrexate as outpatient
Dementia
-Continue donepezil
-Monitor for mood/behavior changes during hospitalization
Anxiety/Depression
-Continue sertraline and mirtazapine
Glaucoma
-Continue latanoprost, dorzolamide-timolol
Severe Protein Calorie Malnutrition
-Consult Dietary
DVT proph: SC Heparin
Code Status: DNR
discussed with patient's daughter Pao over the phone
I spent a total of 50 minutes with the patient or on the floor. More than 50% of this time involved counseling and coordination of care.
Anticipated Discharge: > 48 hours
Subjective/Interval History
-
Date of Service: October 11, 2023
no acute distress appears comfortable at this time.
Objective Data
-
Labs:
Laboratory Results
10/11/23
06:00
WBC Pending
Hgb Pending
Hct Pending
Plt Count Pending
Sodium Pending
Potassium Pending
Chloride Pending
Carbon Dioxide Pending
BUN Pending
Creatinine Pending
Glucose Pending
Calcium Pending
Vital Signs:
Vital Signs
Temp Pulse Resp BP Pulse Ox
97.4 F 60 18 95/50 96
10/10/23 23:10 10/10/23 23:10 10/10/23 23:10 10/10/23 23:10 10/10/23 23:10
I&O
10/10/23 10/11/23 10/12/23
06:59 06:59 06:59
Intake Total 1440 / 1440 960 / 960
Balance 1440 / 1440 960 / 960
[2023-10-11] MEDS: SPIRIVA RESPIMAT 2.5 MCG 2 PUFF INH (07:46)
[2023-10-11] MEDS: STRIVERDI RESPIMAT 2 PUFF INH (07:47)
[2023-10-11] MEDS: ZOLOFT 25 MG PO (08:30)
[2023-10-11] MEDS: LIDOCAINE 4% PATCH 1 PATCH TOPICAL (08:30)
[2023-10-11] MEDS: COSOPT EYE DROPS 1 DROP BOTH EYES ×2 (08:30→19:35)
[2023-10-11] MEDS: TYLENOL 1000 MG PO ×3 (08:30→21:10)
[2023-10-11] MEDS: VISBIOME 1 CAP PO (08:35)
[2023-10-11 08:41] LABS: Hematocrit 22.2 % (37.0-47.0); Hemoglobin 7.6 g/dL (12.0-16.0); Mean Corp Hgb Conc. 34.2 g/dL (33.0-37.0); Mean Corpuscular Hgb 35.8 pg (27.0-31.0); Mean Corpuscular Volume 104.7 fL (81.0-99.0); Mean Platelet Volume 9.5 fL (7.4-10.4); Platelet Count 190 10^3/uL (130-400); Red Blood Cell Count 2.12 10^6/uL (4.20-5.40); Red Cell Dist. Width 16.1 % (11.5-14.5); White Blood Cell Count 7.9 10^3/uL (4.8-10.8)
[2023-10-11 09:22] LABS: Blood Urea Nitrogen 32 mg/dl (7-17); Calcium 9.1 mg/dl (8.4-10.2); Carbon Dioxide 16 mmol/L (22-30); Chloride 116 mmol/L (98-107); Estimated Creatinine Clearance 15 ml/min; Glucose 86 mg/dl (70-99); Phosphorus 3.8 mg/dl (2.5-4.5); Sodium 137 mmol/L (135-145)
--- NOTE | 2023-10-11 13:27 | W.PN.UPDATE ---
Update Note
Progress Note Update
I spoke with her daughter, Giovana, on the phone. She is talking with patient for diverting colostomy and flex sig next week, or work up as an outpatient. I will touch base with her again tomorrow.
[2023-10-11] MEDS: ULTRAM 25 MG PO (14:49)
[2023-10-11 14:54] VITALS: BP 110/69
[2023-10-11 15:30] VITALS: BP 118/58
[2023-10-11] MEDS: DILAUDID 0.25 MG IV (17:14)
[2023-10-11] MEDS: REMERON 15 MG PO (21:10)
[2023-10-11] MEDS: ARICEPT 10 MG PO (21:10)
[2023-10-11] MEDS: MELATONIN 5 MG PO (21:10)
[2023-10-11] MEDS: XALATAN OPHTHALMIC SOLUTION 1 DROP BOTH EYES (21:12)
[2023-10-11 23:00] VITALS: BP 158/76
[2023-10-12] MEDS: DILAUDID 0.25 MG IV ×2 (03:13→15:25)
[2023-10-12 07:38] LABS: Hematocrit 22.6 % (37.0-47.0); Hemoglobin 7.7 g/dL (12.0-16.0); Mean Corp Hgb Conc. 34.1 g/dL (33.0-37.0); Mean Corpuscular Hgb 35.5 pg (27.0-31.0); Mean Corpuscular Volume 104.1 fL (81.0-99.0); Mean Platelet Volume 9.7 fL (7.4-10.4); Platelet Count 217 10^3/uL (130-400); Red Blood Cell Count 2.17 10^6/uL (4.20-5.40); Red Cell Dist. Width 17.1 % (11.5-14.5); White Blood Cell Count 7.5 10^3/uL (4.8-10.8)
--- NOTE | 2023-10-12 07:42 | W.PN.HOSP.TC ---
Today's Communication/Plan
-
Pain control
PT/OT
Assessment / Plan
Assessment / Plan
Physical Exam
General: No pallor, cyanosis, or jaundice. Cachectic appearing
HEENT: Throat clear. PERRLA Normocephalic atraumatic
NECK: Supple. No JVD Carotid Bruits
RESPIRATORY: Lungs clear to auscultation. No crackles wheezes stridor
CVS: S1, S2 normal. RRR.� No murmur, rub or gallop.
ABDOMEN: Soft, non-tender. No distension. BS+/normal.
EXTREMITIES: No peripheral cyanosis or edema.
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
82F HTN CKD COPD Rheumatoid Arthritis Dementia Anxiety/Depression presents with Bridges increased back pain concerns with failure to thrive poor oral intake.� On Bactrim for UTI. Labs concerning for mild macrocytic anemia, anemia of chronic disease,
non-iron deficient, B12 wnl and JESUS on CKD initial Cr 2.3 (reported baseline 1.6).� CT abd/pelvis noted moderate L1 and L4 indeterminate compression fractures and moderate intrahepatic dilatation. Abd US further noted intra and extrahepatic biliary
dilatation.� Back pain improved with lidocaine patch.� Endorsed chronic low oral intake, son Johnathon reports ongoing for years, 81 lbs consistent baseline per son. Patient later in evening passed stool and diarrhea via vagina witnessed by nurse staff
and daughter at bedside. Patient has hx hysterectomy �
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
CRS eval appreciated awaiting daughter's decision regarding further evaluation possible surgical intervention
diverting colostomy and flex sig tentatively scheduled for Tues, daughter in favor of procedure but needs to further discuss with patient
JESUS on CKD IV, likely secondary to recent Bactrim
-Bactrim stopped
-Initial Cr 2.3 improved to 1.7 (near baseline 1.6 per reports)
-patient tolerating diet
-IVF completed monitor off
-Cr stable
Hypomagnesemia
-monitor and replete as necessary
L1 and L4 Compression Fractures
-Continue Lidocaine patch
-Continue Tylenol 1000mg TID
-PT/OT appreciated SNF rehab
-tramadol prn mod severe pain, dilaudid for severe breakthrough pain
Recent UTI
-Bactrim stopped due to JESUS
-urinalysis neg for uti
Macrocytic Anemia, likely anemia of chronic disease
-vitamin b12 and folate wnl
-iron non-deficient though iron panel indicates anemia of chronic disease
COPD, no acute exacerbation
-Continue Anoro Ellipta or equivalent
Rheumatoid Arthritis
-Patient maintained on methotrexate as outpatient
Dementia
-Continue donepezil
-Monitor for mood/behavior changes during hospitalization
Anxiety/Depression
-Continue sertraline and mirtazapine
Glaucoma
-Continue latanoprost, dorzolamide-timolol
Severe Protein Calorie Malnutrition
-Consult Dietary
DVT proph: SC Heparin
Code Status: DNR
discussed with patient's daughter Pao over the phone
I spent a total of 50 minutes with the patient or on the floor. More than 50% of this time involved counseling and coordination of care.
Anticipated Discharge: > 48 hours
Subjective/Interval History
-
Date of Service: October 12, 2023
No acute distress. Pain manageable with current regimen.
Objective Data
-
Labs:
Laboratory Results
10/12/23
07:04
WBC Pending
Hgb Pending
Hct Pending
Plt Count Pending
Sodium Pending
Potassium Pending
Chloride Pending
Carbon Dioxide Pending
BUN Pending
Creatinine Pending
Glucose Pending
Calcium Pending
Vital Signs:
Vital Signs
Temp Pulse Resp BP Pulse Ox
97.5 F 64 16 158/76 98
10/11/23 23:00 10/11/23 23:00 10/11/23 23:00 10/11/23 23:00 10/11/23 23:00
I&O
10/11/23 10/12/23 10/13/23
06:59 06:59 06:59
Intake Total 960 / 960 780 / 780
Balance 960 / 960 780 / 780
[2023-10-12] MEDS: STRIVERDI RESPIMAT 2 PUFF INH (07:45)
[2023-10-12] MEDS: SPIRIVA RESPIMAT 2.5 MCG 2 PUFF INH (07:45)
[2023-10-12 07:57] VITALS: BP 129/60
[2023-10-12 08:08] LABS: Blood Urea Nitrogen 33 mg/dl (7-17); Calcium 9.5 mg/dl (8.4-10.2); Carbon Dioxide 19 mmol/L (22-30); Chloride 112 mmol/L (98-107); Estimated Creatinine Clearance 16 ml/min; Glucose 86 mg/dl (70-99); Magnesium 1.9 mg/dl (1.6-2.3); Potassium 3.9 mmol/L (3.5-5.1); Sodium 138 mmol/L (135-145); eGFR 34.36
[2023-10-12] MEDS: COSOPT EYE DROPS 1 DROP BOTH EYES ×2 (08:43→20:36)
[2023-10-12] MEDS: TYLENOL 1000 MG PO ×3 (08:44→21:39)
[2023-10-12] MEDS: VISBIOME 1 CAP PO (08:44)
[2023-10-12] MEDS: LIDOCAINE 4% PATCH 1 PATCH TOPICAL (08:44)
[2023-10-12] MEDS: ZOLOFT 25 MG PO (08:44)
[2023-10-12] MEDS: HEPARIN 5000 UNITS SC ×3 (08:44→23:01)
[2023-10-12] MEDS: ULTRAM 25 MG PO (10:25)
[2023-10-12 15:40] VITALS: BP 104/61
--- NOTE | 2023-10-12 16:09 | CM ---
Patient seen bedside asleep. Per [facility] unable to accept patient, awaiting on several other facilities in regards to accepting patient. CM will continue to follow for discharge planning needs.
Plan; SNF pending accepting facility.
[2023-10-12 18:40] VITALS: BP 104/61
[2023-10-12] MEDS: MELATONIN 5 MG PO (21:38)
[2023-10-12] MEDS: ARICEPT 10 MG PO (21:39)
[2023-10-12] MEDS: REMERON 15 MG PO (21:39)
[2023-10-12] MEDS: XALATAN OPHTHALMIC SOLUTION 1 DROP BOTH EYES (23:00)
[2023-10-12 23:50] VITALS: BP 140/74
[2023-10-13 07:15] VITALS: BP 133/73
--- NOTE | 2023-10-13 07:27 | W.PN.HOSP.TC ---
Today's Communication/Plan
-
cont pain control PT/OT
Tentatively scheduled for OR Tues Diverting Colostomy Flex Sig with CRS pending daughter's confirmation
Discharge planning SNF rehab
Assessment / Plan
Assessment / Plan
Physical Exam
General: No pallor, cyanosis, or jaundice. Cachectic appearing
HEENT: Throat clear. PERRLA Normocephalic atraumatic
NECK: Supple. No JVD Carotid Bruits
RESPIRATORY: Lungs clear to auscultation. No crackles wheezes stridor
CVS: S1, S2 normal. RRR.� No murmur, rub or gallop.
ABDOMEN: Soft, non-tender. No distension. BS+/normal.
EXTREMITIES: No peripheral cyanosis or edema.
SUPERVISOR TANK STORAGE: AOx3
82F HTN CKD COPD Rheumatoid Arthritis Dementia Anxiety/Depression presents with [facility] increased back pain concerns with failure to thrive poor oral intake.� On Bactrim for UTI. Labs concerning for mild macrocytic anemia, anemia of chronic disease,
non-iron deficient, B12 wnl and JESUS on CKD initial Cr 2.3 (reported baseline 1.6).� CT abd/pelvis noted moderate L1 and L4 indeterminate compression fractures and moderate intrahepatic dilatation. Abd US further noted intra and extrahepatic biliary
dilatation.� Back pain improved with lidocaine patch.� Endorsed chronic low oral intake, son Johnathon reports ongoing for years, 81 lbs consistent baseline per son. Patient later in evening passed stool and diarrhea via vagina witnessed by nurse staff
and daughter at bedside. Patient has hx hysterectomy �
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
CRS eval appreciated awaiting daughter's decision regarding further evaluation possible surgical intervention
diverting colostomy and flex sig tentatively scheduled for Tues, daughter in favor of procedure but needs to further discuss with patient
JESUS on CKD IV, likely secondary to recent Bactrim
-Bactrim stopped
-Initial Cr 2.3 improved to 1.7 (near baseline 1.6 per reports)
-patient tolerating diet
-IVF completed monitor off
-Cr stable
Hypomagnesemia
-monitor and replete as necessary
L1 and L4 Compression Fractures
-Continue Lidocaine patch
-Continue Tylenol 1000mg TID
-PT/OT appreciated SNF rehab
-tramadol prn mod severe pain, dilaudid for severe breakthrough pain
Recent UTI
-Bactrim stopped due to JESUS
-urinalysis neg for uti
Macrocytic Anemia, likely anemia of chronic disease
-vitamin b12 and folate wnl
-iron non-deficient though iron panel indicates anemia of chronic disease
COPD, no acute exacerbation
-Continue Anoro Ellipta or equivalent
Rheumatoid Arthritis
-Patient maintained on methotrexate as outpatient
Dementia
-Continue donepezil
-Monitor for mood/behavior changes during hospitalization
Anxiety/Depression
-Continue sertraline and mirtazapine
Glaucoma
-Continue latanoprost, dorzolamide-timolol
Severe Protein Calorie Malnutrition
-Consult Dietary
DVT proph: SC Heparin
Code Status: DNR
discussed with patient's daughter Pao
I spent a total of 50 minutes with the patient or on the floor. More than 50% of this time involved counseling and coordination of care.
Anticipated Discharge: 24 - 48 hours
Subjective/Interval History
-
Date of Service: October 13, 2023
Continues to report back pain tolerable with current pain regimen. Per nurse, patient continues to expel stool from vaginal area, no stool passing from rectum. Daughter and Granddaughter present during evaluation.
Objective Data
-
Labs:
Laboratory Results
10/13/23
07:02
WBC Pending
Hgb Pending
Hct Pending
Plt Count Pending
Sodium Pending
Potassium Pending
Chloride Pending
Carbon Dioxide Pending
BUN Pending
Creatinine Pending
Glucose Pending
Calcium Pending
Vital Signs:
Vital Signs
Temp Pulse Resp BP Pulse Ox
97.6 F 67 20 140/74 96
10/12/23 23:50 10/12/23 23:50 10/12/23 23:50 10/12/23 23:50 10/12/23 23:50
I&O
10/12/23 10/13/23 10/14/23
06:59 06:59 06:59
Intake Total 780 / 780 590 / 590
Balance 780 / 780 590 / 590
[2023-10-13] MEDS: SPIRIVA RESPIMAT 2.5 MCG 2 PUFF INH (07:40)
[2023-10-13] MEDS: STRIVERDI RESPIMAT 2 PUFF INH (07:40)
[2023-10-13 07:59] LABS: Blood Urea Nitrogen 31 mg/dl (7-17); Calcium 9.1 mg/dl (8.4-10.2); Carbon Dioxide 20 mmol/L (22-30); Chloride 114 mmol/L (98-107); Estimated Creatinine Clearance 14 ml/min; Glucose 88 mg/dl (70-99); Magnesium 1.8 mg/dl (1.6-2.3); Phosphorus 3.6 mg/dl (2.5-4.5); Potassium 4.1 mmol/L (3.5-5.1); Sodium 137 mmol/L (135-145); eGFR 29.57
[2023-10-13] MEDS: VISBIOME 1 CAP PO (08:24)
[2023-10-13] MEDS: ZOLOFT 25 MG PO (08:24)
[2023-10-13] MEDS: TYLENOL 1000 MG PO ×3 (08:24→21:33)
[2023-10-13] MEDS: LIDOCAINE 4% PATCH 1 PATCH TOPICAL (08:25)
[2023-10-13] MEDS: HEPARIN 5000 UNITS SC ×3 (08:25→23:04)
[2023-10-13] MEDS: COSOPT EYE DROPS 1 DROP BOTH EYES ×2 (08:26→20:20)
[2023-10-13 08:28] LABS: Hematocrit 23.3 % (37.0-47.0); Hemoglobin 7.8 g/dL (12.0-16.0); Mean Corp Hgb Conc. 33.5 g/dL (33.0-37.0); Mean Corpuscular Hgb 36.3 pg (27.0-31.0); Mean Corpuscular Volume 108.4 fL (81.0-99.0); Mean Platelet Volume 10.3 fL (7.4-10.4); Platelet Count 239 10^3/uL (130-400); Red Blood Cell Count 2.15 10^6/uL (4.20-5.40); Red Cell Dist. Width 17.2 % (11.5-14.5); White Blood Cell Count 9.4 10^3/uL (4.8-10.8)
[2023-10-13 13:50] VITALS: BP 134/68; PULSE 76; O2SAT 95
[2023-10-13] MEDS: ULTRAM 25 MG PO (15:06)
[2023-10-13 15:22] VITALS: BP 109/72
[2023-10-13] MEDS: MELATONIN 5 MG PO (21:33)
[2023-10-13] MEDS: REMERON 15 MG PO (21:34)
[2023-10-13] MEDS: XALATAN OPHTHALMIC SOLUTION 1 DROP BOTH EYES (21:34)
[2023-10-13] MEDS: ARICEPT 10 MG PO (21:34)
[2023-10-13 23:58] VITALS: BP 115/59
[2023-10-14] MEDS: ULTRAM 25 MG PO (05:01)
[2023-10-14 07:05] VITALS: BP 118/70
[2023-10-14] MEDS: SPIRIVA RESPIMAT 2.5 MCG 2 PUFF INH (08:03)
[2023-10-14] MEDS: STRIVERDI RESPIMAT 2 PUFF INH (08:03)
[2023-10-14 08:06] LABS: Hematocrit 22.7 % (37.0-47.0); Hemoglobin 7.8 g/dL (12.0-16.0); Mean Corp Hgb Conc. 34.4 g/dL (33.0-37.0); Mean Corpuscular Hgb 35.3 pg (27.0-31.0); Mean Corpuscular Volume 102.7 fL (81.0-99.0); Mean Platelet Volume 9.8 fL (7.4-10.4); Platelet Count 251 10^3/uL (130-400); Red Blood Cell Count 2.21 10^6/uL (4.20-5.40); Red Cell Dist. Width 17.8 % (11.5-14.5); White Blood Cell Count 8.1 10^3/uL (4.8-10.8)
[2023-10-14 08:30] LABS: Blood Urea Nitrogen 33 mg/dl (7-17); Calcium 9.5 mg/dl (8.4-10.2); Carbon Dioxide 19 mmol/L (22-30); Chloride 110 mmol/L (98-107); Estimated Creatinine Clearance 16 ml/min; Glucose 90 mg/dl (70-99); Magnesium 1.9 mg/dl (1.6-2.3); Phosphorus 3.4 mg/dl (2.5-4.5); Potassium 4.1 mmol/L (3.5-5.1); Sodium 137 mmol/L (135-145); eGFR 34.36
[2023-10-14] MEDS: HEPARIN 5000 UNITS SC ×2 (08:35→16:04)
[2023-10-14] MEDS: LIDOCAINE 4% PATCH 1 PATCH TOPICAL (08:35)
[2023-10-14] MEDS: ZOLOFT 25 MG PO (08:36)
[2023-10-14] MEDS: VISBIOME 1 CAP PO (08:36)
[2023-10-14] MEDS: TYLENOL 1000 MG PO ×3 (08:36→20:18)
[2023-10-14] MEDS: COSOPT EYE DROPS 1 DROP BOTH EYES ×2 (08:37→20:19)
--- NOTE | 2023-10-14 09:03 | W.PN.HOSP.TC ---
Today's Communication/Plan
-
Colorectal Surgery appreciated
Surgery scheduled for 10/16/23
Assessment / Plan
Assessment / Plan
Physical Exam
General: Not in acute distress. Cachectic appearing
HEENT: Normocephalic atraumatic
NECK: Supple
RESPIRATORY: Lungs clear to auscultation bilaterally
CVS: S1, S2 normal. RRR.�
ABDOMEN: Soft, non-tender. No distension. BS+/normal.
EXTREMITIES: No peripheral cyanosis or edema.
STRENGTH AND CONDITIONING COACH: AAOx3

82F HTN CKD COPD Rheumatoid Arthritis Dementia Anxiety/Depression presented from [facility] increased back pain concerns with failure to thrive poor oral intake.� On Bactrim for UTI. Labs concerning for mild macrocytic anemia, anemia of chronic
disease, non-iron deficient, B12 wnl and JESUS on CKD initial Cr 2.3 (reported baseline 1.6).� CT abd/pelvis noted moderate L1 and L4 indeterminate compression fractures and moderate intrahepatic dilatation. Abd US further noted intra and extrahepatic
biliary dilatation.� Back pain improved with lidocaine patch.� Endorsed chronic low oral intake, son Johnathon reported ongoing for years, 81 lbs consistent baseline per son. Patient later in evening passed stool and diarrhea via vagina witnessed by
nurse staff and daughter at bedside. Patient has history of hysterectomy �
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
Colorectal Surgery (CRS) spoke (on 10/14/23) to patient's daughter Tonya: CRS will do a bowel prep on 10/14/23, flexible sigmoidoscopy on 10/15/[address] Motley. Then on 10/16/23 she will undergo a transverse loop colostomy. As per CRS, patient
is too frail to do a repair on her vaginal/rectum fistula so the colostomy is the next best option. Family is in agreement as per CRS.
Patient does need to be tuned up for the OR as per CRS.
JESUS on CKD IV, likely secondary to recent Bactrim
-Bactrim stopped
-Initial Cr 2.3 improved to 1.7---->1.5 (near baseline 1.6 per reports)
-patient tolerating diet
-IVF completed monitor off
-Cr stable
Hypomagnesemia
-monitor and replete as necessary
L1 and L4 Vertebral Compression Fractures
-Continue Lidocaine patch
-Continue Tylenol 1000mg TID
-PT/OT appreciated SNF rehab
-tramadol prn mod severe pain, dilaudid for severe breakthrough pain
Recent UTI
-Bactrim stopped due to JESUS
-urinalysis neg for uti
Macrocytic Anemia, likely anemia of chronic disease
-vitamin b12 and folate wnl
-iron non-deficient though iron panel indicates anemia of chronic disease
COPD, no acute exacerbation
-Continue Anoro Ellipta or equivalent
Rheumatoid Arthritis
-Patient maintained on methotrexate as outpatient
Dementia
-Continue donepezil
-Monitor for mood/behavior changes during hospitalization
Anxiety/Depression
-Continue sertraline and mirtazapine
Glaucoma
-Continue latanoprost, dorzolamide-timolol
Severe Protein Calorie Malnutrition
-Consult Dietary
DVT proph: SC Heparin
Code Status: DNR
Anticipated Discharge: > 48 hours
Subjective/Interval History
-
Date of Service: October 14, 2023
Patient was seen and examined. No new symptoms or complaints reported.
Objective Data
-
Labs:
Laboratory Results
10/14/23
07:30
WBC 8.1
Hgb 7.8 L
Hct 22.7 L
Plt Count 251
Sodium 137
Potassium 4.1
Chloride 110 H
Carbon Dioxide 19 L
BUN 33 H
Creatinine 1.5 H
Glucose 90
Calcium 9.5
Vital Signs:
Vital Signs
Temp Pulse Resp BP Pulse Ox
97.8 F 64 18 118/70 97
10/14/23 07:05 10/14/23 08:09 10/14/23 08:09 10/14/23 07:05 10/14/23 08:09
I&O
10/13/23 10/14/23 10/15/23
06:59 06:59 06:59
Intake Total 590 / 590 640 / 640
Output Total 200 / 200
Balance 590 / 590 440 / 440
--- NOTE | 2023-10-14 11:30 | W.PN.CRS1 ---
Today's Communication / Plan
-
Bowel prep
Flexible sigmoidoscopy tomorrow
OR Saturday
Assessment/Plan
-
Assessment: 82yo female with failure to thrive with multiple lumbar compression fractures and JESUS, with stool noted in vagina
Plan: I spoke with daughter, Giovana, via phone. Plan is for bowel prep today, clear liquid diet, n.p.o. at 10 AM tomorrow, flexible sigmoidoscopy with Dr. Motley. Then plan for OR on Saturday for a transverse loop colostomy. Patient is in
agreement along with her daughter. I spoke to her on the phone and answered all questions. I will have pharmacy retail support specialist to trey her for colostomy placement. I have updated the hospitalist.
Subjective Data
Subjective Data
Date of Service: October 14, 2023
Patient states she still has discomfort in her rectal area. She still has drainage. She has no other complaints and is tolerating diet.
Objective Data
-
Vital Signs
Temp Pulse Resp BP Pulse Ox
97.8 F 64 18 118/70 97
10/14/23 07:05 10/14/23 08:09 10/14/23 08:09 10/14/23 07:05 10/14/23 08:09
Intake & Output
10/13/23 10/14/23 10/15/23
06:59 06:59 06:59
Intake Total 590 / 590 640 / 640
Output Total 200 / 200
Balance 590 / 590 440 / 440
Intake:
Oral fluids 590 / 590 640 / 640
Output:
Urine, Voided 200 / 200
Other:
Number of approximated MODERATE 1
amounts of urine
How many times incontinent 2
MODERATE amount urine
How many times incontinent 1 1
SATURATED amount urine
Lab Results
10/14/23 07:30
10/14/23 07:30
Physical Exam
-
General: No Acute Distress and AOx3
Abdomen: Soft, Non Distended and Non Tender
Skin: Warm and Dry
[2023-10-14] MEDS: NULYTELY SOLUTION 4 LITERS PO (13:00)
--- NOTE | 2023-10-14 14:06 | CM ---
Plan: colonoscopy tomorrow and then probable colostomy.
Spoke with daughter Giovana, additional referrals placed.
Plan: skilled rehab once medically stable.
[2023-10-14 15:55] VITALS: BP 134/70
--- NOTE | 2023-10-14 19:16 | PTCARENOTE ---
Addendum entered by Hayde Amin RN 10/14/23 22:18:
Pt. stating that she is unable to tolerate prep. Encouraged by this nurse to finish as much as she can to ensure successful visualization during scope. Pt. stated that she 'just can't, its too much.' Provider notified. Will continue to monitor.
Original Note:
Patient continued on bowel prep and encouraged by this nurse to continue drinking the prep. Patient stated that she would 'do what she can but isn't sure if she will be able to finish the prep.' This nurse explained to pt. that if she was unable to
finish the prep/not clear, that there could be difficulty with full visualization during her procedure. Pt. stated that she understood and would continue to try to finish the prep. This nurse will continue to encourage/monitor pt. VSS at this time.
[2023-10-14] MEDS: MELATONIN 5 MG PO (20:18)
[2023-10-14] MEDS: REMERON 15 MG PO (20:18)
[2023-10-14] MEDS: XALATAN OPHTHALMIC SOLUTION 1 DROP BOTH EYES (20:19)
[2023-10-14] MEDS: ARICEPT 10 MG PO (20:19)
[2023-10-15] MEDS: HEPARIN 5000 UNITS SC ×4 (01:00→23:01)
[2023-10-15 07:00] VITALS: BP 104/62
[2023-10-15 08:03] LABS: Hematocrit 24.4 % (37.0-47.0); Hemoglobin 8.2 g/dL (12.0-16.0); Mean Corp Hgb Conc. 33.6 g/dL (33.0-37.0); Mean Corpuscular Hgb 36.3 pg (27.0-31.0); Platelet Count 309 10^3/uL (130-400); Red Blood Cell Count 2.26 10^6/uL (4.20-5.40); Red Cell Dist. Width 18.2 % (11.5-14.5); White Blood Cell Count 7.9 10^3/uL (4.8-10.8)
[2023-10-15] MEDS: STRIVERDI RESPIMAT 2 PUFF INH (08:19)
[2023-10-15] MEDS: SPIRIVA RESPIMAT 2.5 MCG 2 PUFF INH (08:19)
[2023-10-15 08:47] LABS: INR 1.09; PT 14.3 Sec (11.4-14.6)
[2023-10-15 08:48] LABS: APTT 37.2 Sec (23.4-35.0)
[2023-10-15 08:55] LABS: Blood Urea Nitrogen 28 mg/dl (7-17); Calcium 9.3 mg/dl (8.4-10.2); Carbon Dioxide 20 mmol/L (22-30); Chloride 110 mmol/L (98-107); Estimated Creatinine Clearance 16 ml/min; Glucose 86 mg/dl (70-99); Magnesium 1.7 mg/dl (1.6-2.3); Phosphorus 3.4 mg/dl (2.5-4.5); Potassium 3.9 mmol/L (3.5-5.1); Sodium 138 mmol/L (135-145); eGFR 34.36
[2023-10-15] MEDS: TYLENOL 1000 MG PO ×3 (08:55→21:07)
[2023-10-15] MEDS: VISBIOME 1 CAP PO (08:55)
[2023-10-15] MEDS: LIDOCAINE 4% PATCH 1 PATCH TOPICAL (08:56)
[2023-10-15] MEDS: COSOPT EYE DROPS 1 DROP BOTH EYES ×2 (08:57→19:48)
[2023-10-15] MEDS: NSS 1000 IV (09:19)
[2023-10-15] MEDS: ZOLOFT 25 MG PO (09:31)
--- NOTE | 2023-10-15 13:03 | CM ---
Plan: OR tomorrow.
CM will cont to follow for d/c needs.
[2023-10-15 15:00] VITALS: BP 130/58
--- NOTE | 2023-10-15 15:56 | WOUNDNOTE ---
ISAMAR RN NOTE: Stoma sited patient as requested, RUQ site not viable. Assessed patient lying, sitting and standing. Patient is very thin with protruding low lying ribs, several creases throughout abdomen, proximal hernia visible and umbilicus barely
visible. LUQ marked 8 cm from midline and 0.5 cm proximal from umbilical line. LLQ marked 5.5 cm from midline and 1.5cm distal from umbilical line. RLQ marked 6 cm from midline and 1cm distal from umbilical line. REJI Yeung made aware of the
above, TT picture of markings on abdomen. OR tomorrow at 0730 per REJI Yeung.
--- NOTE | 2023-10-15 16:09 | WOUNDNOTE ---
ABDOMEN WITH STOMA MARKINGS
--- NOTE | 2023-10-15 16:27 | W.PN.UPDATE ---
Update Note
Progress Note Update
Flexible sigmoidoscopy reveals diverticular disease. Examination of the vagina with stool present and a fistula at the apex. No signs of cancer.
She tolerated the procedure well.
Clear liquids tonight, NPO after midnight for her colostomy tomorrow.
I updated her daughter.
[2023-10-15] MEDS: NEOMYCIN 1000 MG PO ×2 (17:27→18:21)
[2023-10-15] MEDS: FLAGYL 1000 MG PO ×2 (17:28→18:22)
--- NOTE | 2023-10-15 17:51 | W.PN.HOSP.TC ---
Today's Communication/Plan
-
Appreciate colorectal surgery evaluation and treatment
Monitor labs
Assessment / Plan
Assessment / Plan
Physical Exam
General: Not in acute distress. Cachectic appearing
HEENT: Normocephalic atraumatic
NECK: Supple
RESPIRATORY: Lungs clear to auscultation bilaterally
CVS: S1, S2 normal. RRR.�
ABDOMEN: Soft, non-tender. No distension. BS+/normal.
EXTREMITIES: No peripheral cyanosis or edema.
WATER RESOURCES BUSINESS SEGMENT LEADER: AAOx3

82F HTN CKD COPD Rheumatoid Arthritis Dementia Anxiety/Depression presented from [facility] increased back pain concerns with failure to thrive poor oral intake.� On Bactrim for UTI. Labs concerning for mild macrocytic anemia, anemia of chronic
disease, non-iron deficient, B12 wnl and JESUS on CKD initial Cr 2.3 (reported baseline 1.6).� CT abd/pelvis noted moderate L1 and L4 indeterminate compression fractures and moderate intrahepatic dilatation. Abd US further noted intra and extrahepatic
biliary dilatation.� Back pain improved with lidocaine patch.� Endorsed chronic low oral intake, son Johnathon reported ongoing for years, 81 lbs consistent baseline per son. Patient later in evening passed stool and diarrhea via vagina witnessed by
nurse staff and daughter at bedside. Patient has history of hysterectomy �
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
Colorectal Surgery (CRS) spoke (on 10/14/23) to patient's daughter Tonya: CRS will do a bowel prep on 10/14/23, flexible sigmoidoscopy on 10/15/[address] Motley. Then on 10/16/23 she will undergo a transverse loop colostomy. As per CRS, patient
is too frail to do a repair on her vaginal/rectum fistula so the colostomy is the next best option. Family is in agreement as per CRS.
Patient does need to be tuned up for the OR as per CRS.
JESUS on CKD IV, likely secondary to recent Bactrim
-Bactrim stopped
-Initial Cr 2.3 improved to 1.7---->1.5 (near baseline 1.6 per reports)
-patient tolerating diet
-IVF completed monitor off
-Cr stable
Hypomagnesemia
-monitor and replete as necessary
L1 and L4 Vertebral Compression Fractures
-Continue Lidocaine patch
-Continue Tylenol 1000mg TID
-PT/OT appreciated SNF rehab
-tramadol prn mod severe pain, dilaudid for severe breakthrough pain
Recent UTI
-Bactrim stopped due to JESUS
-urinalysis neg for uti
Macrocytic Anemia, likely anemia of chronic disease
-vitamin b12 and folate wnl
-iron non-deficient though iron panel indicates anemia of chronic disease
COPD, no acute exacerbation
-Continue Anoro Ellipta or equivalent
Rheumatoid Arthritis
-Patient maintained on methotrexate as outpatient
Dementia
-Continue donepezil
-Monitor for mood/behavior changes during hospitalization
Anxiety/Depression
-Continue sertraline and mirtazapine
Glaucoma
-Continue latanoprost, dorzolamide-timolol
Severe Protein Calorie Malnutrition
-Consult Dietary
DVT proph: SC Heparin
Code Status: DNR
Anticipated Discharge: > 48 hours
Subjective/Interval History
-
Date of Service: October 15, 2023
Patient was seen and examined. No new significant symptoms or complaints reported.
Objective Data
-
Labs:
Laboratory Results
10/15/23 10/15/23
07:15 08:02
WBC 7.9
Hgb 8.2 L
Hct 24.4 L
Plt Count 309 D
PT 14.3
INR 1.09
APTT 37.2 H
Sodium 138
Potassium 3.9
Chloride 110 H
Carbon Dioxide 20 L
BUN 28 H
Creatinine 1.5 H
Glucose 86
Calcium 9.3
Vital Signs:
Vital Signs
Temp Pulse Resp BP Pulse Ox
98.0 F 61 16 130/58 98
10/15/23 15:00 10/15/23 15:00 10/15/23 15:00 10/15/23 15:00 10/15/23 15:00
I&O
10/14/23 10/15/23 10/16/23
06:59 06:59 06:59
Intake Total 640 / 640 540 / 540 240 / 240
Output Total 200 / 200
Balance 440 / 440 540 / 540 240 / 240
[2023-10-15] MEDS: XALATAN OPHTHALMIC SOLUTION 1 DROP BOTH EYES (21:06)
[2023-10-15] MEDS: REMERON 15 MG PO (21:06)
[2023-10-15] MEDS: MELATONIN 5 MG PO (21:07)
[2023-10-15] MEDS: ARICEPT 10 MG PO (21:07)
[2023-10-15] MEDS: ULTRAM 25 MG PO (21:31)
[2023-10-15 23:26] VITALS: BP 118/63
[2023-10-16] VITALS (10 sets, daily range): BP systolic 98–146; BP diastolic 50–86
[2023-10-16] MEDS: NSS 1000 IV ×2 (04:13→22:55)
[2023-10-16] MEDS: TYLENOL 1000 MG PO ×3 (06:37→21:06)
[2023-10-16] MEDS: NEURONTIN 600 MG PO (06:37)
[2023-10-16] MEDS: HEPARIN 5000 UNITS SC ×3 (06:37→23:00)
--- NOTE | 2023-10-16 07:35 | WOUNDNOTE ---
[facility] RN note: Reviewed stoma pic as requested by ISAMAR Waller and spoke with ISAMAR Waller and the consensus is the LUQ location for a stoma trey will be too close to patient's rib cage d/t patient's body habitus; notified Mandy Osorio
via tiger text. Pau responded she will let Dr. Motley know.
[2023-10-16] MEDS: STRIVERDI RESPIMAT INH (07:38)
[2023-10-16] MEDS: SPIRIVA RESPIMAT 2.5 MCG INH (07:38)
[2023-10-16] MEDS: TYLENOL PO (08:00)
[2023-10-16] MEDS: HEPARIN SC (08:00)
--- NOTE | 2023-10-16 09:19 | W.IMMPOSTOP ---
Surgical Immed Post Op Note
-
Primary Surgeon: Shawn Motley MD
Assistants: EDDI De León and EDDI Marie
Pre-op Diagnosis: Colovaginal fistula
Post-op Diagnosis: Same
Procedure Performed: Trephine colostomy
Anesthesia Type: GET
Specimen / Cultures: None
Estimated Blood Loss: 4cc
Complications: None
Operative Findings: End sigmoid colostomy
Patient's daughter updated.
[2023-10-16] MEDS: ZOLOFT 25 MG PO (11:54)
[2023-10-16] MEDS: LIDOCAINE 4% PATCH 1 PATCH TOPICAL (11:54)
[2023-10-16] MEDS: COSOPT EYE DROPS 1 DROP BOTH EYES ×2 (11:55→19:26)
[2023-10-16] MEDS: VISBIOME 1 CAP PO (11:57)
--- NOTE | 2023-10-16 12:00 | PTCARENOTE ---
patient returned from OR at 1115am. pt has colostomy to LUQ. pt is oriented x3 and very drowsy. pt denies any pain at this time. pt in no distress. continue to monitor pt.
[2023-10-16 12:35] LABS: Hematocrit 26.3 % (37.0-47.0); Hemoglobin 8.9 g/dL (12.0-16.0); Mean Corp Hgb Conc. 33.8 g/dL (33.0-37.0); Mean Corpuscular Volume 106.5 fL (81.0-99.0); Mean Platelet Volume 10.2 fL (7.4-10.4); Platelet Count 302 10^3/uL (130-400); Red Blood Cell Count 2.47 10^6/uL (4.20-5.40); Red Cell Dist. Width 18.6 % (11.5-14.5); White Blood Cell Count 7.4 10^3/uL (4.8-10.8)
[2023-10-16 12:51] LABS: Blood Urea Nitrogen 23 mg/dl (7-17); Calcium 8.9 mg/dl (8.4-10.2); Carbon Dioxide 13 mmol/L (22-30); Chloride 118 mmol/L (98-107); Estimated Creatinine Clearance 17 ml/min; Glucose 113 mg/dl (70-99); Magnesium 1.8 mg/dl (1.6-2.3); Potassium 4.3 mmol/L (3.5-5.1); Sodium 137 mmol/L (135-145); eGFR 37.33
--- NOTE | 2023-10-16 16:00 | CM ---
Patient s/p colostomy today.
Await PT/OT evaluations when medically able.
Multiple facilities agreed to accept when stable.
Plan: skilled rehab when medically stable.
Medicare primary.
--- NOTE | 2023-10-16 16:15 | W.PN.HOSP.TC ---
Today's Communication/Plan
-
Patient went for trephine colostomy, the end sigmoid - today
Monitor closely post-op
Recheck labs this evening
Carrie Dennyser for Hypothermia
Assessment / Plan
Assessment / Plan
Physical Exam
Physical exam not performed as patient was not present in her room at the time of attempted patient encounter.

82F HTN CKD COPD Rheumatoid Arthritis Dementia Anxiety/Depression presented from [facility] increased back pain concerns with failure to thrive poor oral intake.� On Bactrim for UTI. Labs concerning for mild macrocytic anemia, anemia of chronic
disease, non-iron deficient, B12 wnl and JESUS on CKD initial Cr 2.3 (reported baseline 1.6).� CT abd/pelvis noted moderate L1 and L4 indeterminate compression fractures and moderate intrahepatic dilatation. Abd US further noted intra and extrahepatic
biliary dilatation.� Back pain improved with lidocaine patch.� Endorsed chronic low oral intake, son Johnathon reported ongoing for years, 81 lbs consistent baseline per son. Patient later in evening passed stool and diarrhea via vagina witnessed by
nurse staff and daughter at bedside. Patient has history of hysterectomy �
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
Colorectal Surgery ([facility]) spoke (on 10/14/23) to patient's daughter Tonya: CRS will do a bowel prep on 10/14/23, flexible sigmoidoscopy on 10/15/[address] Motley. Then on 10/16/23 she will undergo a transverse loop colostomy. As per CRS, patient
is too frail to do a repair on her vaginal/rectum fistula so the colostomy is the next best option. Family is in agreement as per CRS.
JESUS on CKD IV, likely secondary to recent Bactrim
-Bactrim stopped
-Initial Cr 2.3 improved to 1.7---->1.5---->1.4 (near baseline 1.6 per reports)
-patient tolerating diet
-Cr stable
Hypomagnesemia
-monitor and replete as necessary
L1 and L4 Vertebral Compression Fractures
-Continue Lidocaine patch
-Continue Tylenol 1000mg TID
-PT/OT appreciated SNF rehab
-tramadol prn mod severe pain, dilaudid for severe breakthrough pain
Recent UTI
-Bactrim stopped due to JESUS
-urinalysis neg for uti
Macrocytic Anemia, likely anemia of chronic disease
-vitamin b12 and folate wnl
-iron non-deficient though iron panel indicates anemia of chronic disease
COPD, no acute exacerbation
-Continue Anoro Ellipta or equivalent
Rheumatoid Arthritis
-Patient maintained on methotrexate as outpatient
Dementia
-Continue donepezil
-Monitor for mood/behavior changes during hospitalization
Anxiety/Depression
-Continue sertraline and mirtazapine
Glaucoma
-Continue latanoprost, dorzolamide-timolol
Severe Protein Calorie Malnutrition
-Consult Dietary
DVT proph: SC Heparin
Code Status: DNR
Anticipated Discharge: > 48 hours
Subjective/Interval History
-
Date of Service: October 16, 2023
Patient went for surgery at the time of attempted patient encounter, therefore patient was not present in her room at the time of attempted patient encounter. Case discussed with patient's nurse.
Objective Data
-
Labs:
Laboratory Results
10/16/23 10/16/23
12:16 20:00
WBC 7.4 Pending
Hgb 8.9 L Pending
Hct 26.3 L Pending
Plt Count 302 Pending
Sodium 137 Pending
Potassium 4.3 Pending
Chloride 118 H Pending
Carbon Dioxide 13 L* Pending
BUN 23 H Pending
Creatinine 1.4 H Pending
Glucose 113 H Pending
Calcium 8.9 Pending
Total Bilirubin Pending
AST Pending
ALT Pending
Alkaline Phosphatase Pending
Vital Signs:
Vital Signs
Temp Pulse Resp BP Pulse Ox
97.3 F 88 16 113/69 96
10/16/23 15:15 10/16/23 11:45 10/16/23 11:45 10/16/23 11:45 10/16/23 11:45
I&O
10/15/23 10/16/23 10/17/23
06:59 06:59 06:59
Intake Total 540 / 540 1800 / 1800 100 / 100
Output Total
Balance 540 / 540 1800 / 1800 70 / 70
[2023-10-16 20:24] LABS: Hematocrit 23.2 % (37.0-47.0); Hemoglobin 7.7 g/dL (12.0-16.0); Mean Corp Hgb Conc. 33.2 g/dL (33.0-37.0); Mean Corpuscular Hgb 36.2 pg (27.0-31.0); Mean Corpuscular Volume 108.9 fL (81.0-99.0); Mean Platelet Volume 9.2 fL (7.4-10.4); Platelet Count 373 10^3/uL (130-400); Red Blood Cell Count 2.13 10^6/uL (4.20-5.40); Red Cell Dist. Width 19.5 % (11.5-14.5); White Blood Cell Count 7.4 10^3/uL (4.8-10.8)
[2023-10-16 20:43] LABS: ALT (SGPT) 17 U/L (0-35); AST (SGOT) 28 U/L (14-36); Albumin 2.4 g/dl (3.5-5.0); Alkaline Phosphatase 158 U/L (38-126); Blood Urea Nitrogen 24 mg/dl (7-17); Calcium 8.6 mg/dl (8.4-10.2); Carbon Dioxide 16 mmol/L (22-30); Chloride 113 mmol/L (98-107); Estimated Creatinine Clearance 16 ml/min; Glucose 124 mg/dl (70-99); Magnesium 1.5 mg/dl (1.6-2.3); Sodium 132 mmol/L (135-145); Total Bilirubin 0.3 mg/dl (0.2-1.3); Total Protein 5.6 g/dl (6.3-8.2); eGFR 34.36
[2023-10-16] MEDS: MELATONIN 5 MG PO (21:07)
[2023-10-16] MEDS: REMERON 15 MG PO (21:07)
[2023-10-16] MEDS: XALATAN OPHTHALMIC SOLUTION 1 DROP BOTH EYES (21:07)
[2023-10-16] MEDS: ARICEPT 10 MG PO (21:07)
[2023-10-17] VITALS (7 sets, daily range): BP systolic 99–126; BP diastolic 48–67; PULSE 61–73; O2SAT 95–97
[2023-10-17 07:53] LABS: Hematocrit 23.4 % (37.0-47.0); Hemoglobin 7.9 g/dL (12.0-16.0); Mean Corp Hgb Conc. 33.8 g/dL (33.0-37.0); Mean Corpuscular Hgb 36.9 pg (27.0-31.0); Mean Corpuscular Volume 109.3 fL (81.0-99.0); Mean Platelet Volume 9.8 fL (7.4-10.4); Platelet Count 423 10^3/uL (130-400); Red Blood Cell Count 2.14 10^6/uL (4.20-5.40); Red Cell Dist. Width 19.3 % (11.5-14.5)
[2023-10-17] MEDS: SPIRIVA RESPIMAT 2.5 MCG 2 PUFF INH (08:01)
[2023-10-17] MEDS: STRIVERDI RESPIMAT 2 PUFF INH (08:01)
[2023-10-17 08:22] LABS: Blood Urea Nitrogen 24 mg/dl (7-17); Calcium 8.9 mg/dl (8.4-10.2); Carbon Dioxide 15 mmol/L (22-30); Chloride 115 mmol/L (98-107); Estimated Creatinine Clearance 15 ml/min; Glucose 86 mg/dl (70-99); Magnesium 1.5 mg/dl (1.6-2.3); Potassium 4.3 mmol/L (3.5-5.1); Sodium 133 mmol/L (135-145)
[2023-10-17] MEDS: HEPARIN 5000 UNITS SC ×3 (08:22→22:59)
[2023-10-17] MEDS: VISBIOME 1 CAP PO (08:22)
[2023-10-17] MEDS: ZOLOFT 25 MG PO (08:22)
[2023-10-17] MEDS: COSOPT EYE DROPS 1 DROP BOTH EYES ×2 (08:23→19:53)
[2023-10-17] MEDS: LIDOCAINE 4% PATCH 1 PATCH TOPICAL (08:23)
[2023-10-17] MEDS: TYLENOL 1000 MG PO ×3 (08:23→21:49)
--- NOTE | 2023-10-17 10:15 | WOUNDNOTE ---
[facility] RN note: Patient s/p colostomy yesterday. Stoma pink. Ostomy appliance intact. Ostomy supplies ([place] wafer # [id number], Michelle seal, [place] pouch # [id number]) and colostomy teaching folder left in room.
[2023-10-17] MEDS: MAGNESIUM SULFATE 50 IV (10:16)
--- NOTE | 2023-10-17 11:04 | CM ---
Addendum entered by Sandra Harris 10/17/23 15:04:
Spoke with daughter, choices added to [facility].
Daughter aware all acceptances are based on availability the day of d/c.
After Short term rehab, the plan is back to the [facility], they will be able to assist her with the colostomy.
Plan: short term skilled rehab
Addendum entered by Sandra Harris 10/17/23 14:50:
Clinical updates sent via [facility].
PT/OT completed, recommending skilled rehab.
Will require colostomy teaching and care.
Await TCB from jennifer Akhtar.
Original Note:
Patient seen bedside.
s/p colostomy 10/16/23.
Patient asked if CM could contact her daughter re d/c plans.
Left VM for jennifer Akhtar re facility preference.
Await updated PT/OT notes.
Patient stated she is hungry, currently on a clear diet.
Plan: skilled rehab when medically stable.
--- NOTE | 2023-10-17 11:52 | W.PN.CRS1 ---
Today's Communication / Plan
-
continue clears
wound RN
oob with PT/OT
await stoma function
Assessment/Plan
-
POD#1 Trephine colostomy
1. Vitals normal.
2. Trend hemoglobin, 7.7 from 7.9, which is unchanged for most of her admission.
3. OOB with PT.
4. Stoma RN for wound teaching.
5. OOB with PT/OT.
6. Continue on clears. Await further bowel function.
7. Heparin subq for DVT prophylaxis, TEDS/SCDS in place.
8. I updated the patient's daughter, Giovana, by phone.
Subjective Data
Procedure
POD#1 Trephine colostomy
Subjective Data
Date of Service: October 17, 2023
Patient states she feels well. She has no nausea. She has a little tenderness but it's 'not bad'. She is hungry.
Objective Data
-
Vital Signs
Temp Pulse Resp BP Pulse Ox
97.3 F 61 18 126/63 97
10/17/23 11:40 10/17/23 11:40 10/17/23 11:40 10/17/23 11:40 10/17/23 11:40
Intake & Output
10/16/23 10/17/23 10/18/23
06:59 06:59 06:59
Intake Total 1800 / 1800 1780 / 1780
Output Total 330 / 330
Balance 1800 / 1800 1450 / 1450
Intake:
Oral fluids 960 / 960 840 / 840
IV fluids (Total) 840 / 840 940 / 940
normosol 100 / 100
Output:
Urine, Pyle 330 / 330
Other:
Number of approximated MODERATE 2
amounts of urine
How many times incontinent 6
MODERATE amount urine
How many times incontinent 4
SATURATED amount urine
Number of unmeasured liquid
stools
Fistula 1
Rectum 1
Lab Results
10/17/23 07:20
10/17/23 07:20
Physical Exam
-
General: No Acute Distress and AOx3
Abdomen: Soft, Non Distended, Non Tender and Other (colostomy warm and pink with serous output, no gas in stoma)
Skin: Warm and Dry
--- NOTE | 2023-10-17 12:32 | W.PN.HOSP.TC ---
Today's Communication/Plan
-
PT/OT
Doing relatively well
Assessment / Plan
Assessment / Plan
Physical Exam
General: Not in acute distress. Cachectic appearing
HEENT: Normocephalic atraumatic
NECK: Supple
RESPIRATORY: Lungs clear to auscultation bilaterally
CVS: S1, S2 normal. RRR.
ABDOMEN: Soft, non-tender. No distension. BS+/normal. Colostomy warm and pink with serous output present.
EXTREMITIES: No peripheral cyanosis or edema.
CHIEF ENGINEERING DIVISION: AAOx3

82F HTN CKD COPD Rheumatoid Arthritis Dementia Anxiety/Depression presented from [facility] increased back pain concerns with failure to thrive poor oral intake.� On Bactrim for UTI. Labs concerning for mild macrocytic anemia, anemia of chronic
disease, non-iron deficient, B12 wnl and JESUS on CKD initial Cr 2.3 (reported baseline 1.6).� CT abd/pelvis noted moderate L1 and L4 indeterminate compression fractures and moderate intrahepatic dilatation. Abd US further noted intra and extrahepatic
biliary dilatation.� Back pain improved with lidocaine patch.� Endorsed chronic low oral intake, son Johnathon reported ongoing for years, 81 lbs consistent baseline per son. Patient later in evening passed stool and diarrhea via vagina witnessed by
nurse staff and daughter at bedside. Patient has history of hysterectomy �
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
Colorectal Surgery (CRS) spoke (on 10/14/23) to patient's daughter Tonya: CRS will do a bowel prep on 10/14/23, flexible sigmoidoscopy on 10/15/[address] Motley. Then on 10/16/23 she will undergo a transverse loop colostomy. As per CRS, patient
is too frail to do a repair on her vaginal/rectum fistula so the colostomy is the next best option. Family is in agreement as per CRS.
JESUS on CKD IV, likely secondary to recent Bactrim
-Bactrim stopped
-Initial Cr 2.3 improved to 1.7---->1.5---->1.4---->1.6 (near baseline 1.6 per reports)
-patient tolerating diet
-Cr stable
Hypomagnesemia
-monitor and replete as necessary
L1 and L4 Vertebral Compression Fractures
-Continue Lidocaine patch
-Continue Tylenol 1000mg TID
-PT/OT appreciated SNF rehab
-tramadol prn mod severe pain, dilaudid for severe breakthrough pain
Recent UTI
-Bactrim stopped due to JESUS
-urinalysis neg for uti
Macrocytic Anemia, likely anemia of chronic disease
-vitamin b12 and folate wnl
-iron non-deficient though iron panel indicates anemia of chronic disease
COPD, no acute exacerbation
-Continue Anoro Ellipta or equivalent
Rheumatoid Arthritis
-Patient maintained on methotrexate as outpatient
Dementia
-Continue donepezil
-Monitor for mood/behavior changes during hospitalization
Anxiety/Depression
-Continue sertraline and mirtazapine
Glaucoma
-Continue latanoprost, dorzolamide-timolol
Severe Protein Calorie Malnutrition
-Consult Dietary
DVT proph: SC Heparin
Code Status: DNR
Anticipated Discharge: 24 - 48 hours
Subjective/Interval History
-
Date of Service: October 17, 2023
Patient was seen and examined. She appeared to be doing well this morning, no Carrie Hugger needed this morning. She denied any new symptoms.
Objective Data
-
Labs:
Laboratory Results
10/17/23
07:20
WBC 9.0
Hgb 7.9 L
Hct 23.4 L
Plt Count 423 H
Sodium 133 L
Potassium 4.3
Chloride 115 H
Carbon Dioxide 15 L
BUN 24 H
Creatinine 1.6 H
Glucose 86
Calcium 8.9
Vital Signs:
Vital Signs
Temp Pulse Resp BP Pulse Ox
97.3 F 61 18 126/63 97
10/17/23 11:40 10/17/23 11:40 10/17/23 11:40 10/17/23 11:40 10/17/23 11:40
I&O
10/16/23 10/17/23 10/18/23
06:59 06:59 06:59
Intake Total 1800 / 1800 1780 / 1780
Output Total 330 / 330
Balance 1800 / 1800 1450 / 1450
--- NOTE | 2023-10-17 15:29 | CON.MD ---
Consultation - Medical
-
Impression:
CK D stage III ( baseline presumed 1.6)
Hyponatremia
Non-anion gap acidosis (AG 3)
Status post Trephine colostomy for Vaginal Intestinal fistula
COPD
Rheumatoid arthritis
Dementia
Hypertension
History of lumbar compression fractures
Recent UTI (patient had been on Bactrim Prior to hospitalization)
Anemia
Plan:
-Creatinine is back to baseline
-In reference to non-gap metabolic acidosis, we'll provide IV alkaline IV fluids we francisco also follow-up with an SPEP given associated anemia
-In reference to her hyponatremia she is currently on clears, if this exacerbates we will provide fluid restriction
[2023-10-17] MEDS: SODIUM BICARBONATE 1150 MEQ IV (16:26)
[2023-10-17] MEDS: REMERON 15 MG PO (21:48)
[2023-10-17] MEDS: XALATAN OPHTHALMIC SOLUTION 1 DROP BOTH EYES (21:49)
[2023-10-17] MEDS: ARICEPT 10 MG PO (21:49)
[2023-10-17] MEDS: MELATONIN 5 MG PO (21:49)
[2023-10-17 22:35] LABS: Protein/creatinine Ratio 1.1; Urine Protein 15 mg/dl
[2023-10-18 07:15] VITALS: BP 134/65
[2023-10-18 07:59] LABS: Hematocrit 22.2 % (37.0-47.0); Hemoglobin 7.5 g/dL (12.0-16.0); Mean Corp Hgb Conc. 33.8 g/dL (33.0-37.0); Mean Corpuscular Hgb 36.4 pg (27.0-31.0); Mean Corpuscular Volume 107.8 fL (81.0-99.0); Mean Platelet Volume 9.6 fL (7.4-10.4); Platelet Count 447 10^3/uL (130-400); Red Blood Cell Count 2.06 10^6/uL (4.20-5.40); Red Cell Dist. Width 19.1 % (11.5-14.5)
[2023-10-18 08:18] LABS: Blood Urea Nitrogen 22 mg/dl (7-17); Calcium 8.7 mg/dl (8.4-10.2); Carbon Dioxide 20 mmol/L (22-30); Chloride 109 mmol/L (98-107); Estimated Creatinine Clearance 19 ml/min; Glucose 84 mg/dl (70-99); Magnesium 2.1 mg/dl (1.6-2.3); Potassium 3.3 mmol/L (3.5-5.1); Sodium 136 mmol/L (135-145)
[2023-10-18] MEDS: SPIRIVA RESPIMAT 2.5 MCG 2 PUFF INH (08:24)
[2023-10-18] MEDS: STRIVERDI RESPIMAT 2 PUFF INH (08:25)
[2023-10-18] MEDS: VISBIOME 1 CAP PO (08:26)
[2023-10-18] MEDS: TYLENOL 1000 MG PO ×3 (08:27→21:41)
[2023-10-18] MEDS: ZOLOFT 25 MG PO (08:27)
[2023-10-18] MEDS: LIDOCAINE 4% PATCH 1 PATCH TOPICAL (08:28)
[2023-10-18] MEDS: HEPARIN 5000 UNITS SC ×3 (08:29→23:08)
[2023-10-18] MEDS: COSOPT EYE DROPS 1 DROP BOTH EYES ×2 (08:30→21:41)
[2023-10-18] MEDS: KCL 40 MEQ PO (10:07)
--- NOTE | 2023-10-18 10:08 | W.PN.CRS1 ---
Addendum entered and electronically signed by Davie Lozano MD 10/18/23 13:17:
I saw and examined the patient.
The PA's note was reviewed and I agree with the note.
Comment:
Seen in a.m. with PA.
Some leakage from ostomy bag overnight. No significant pain. No nausea.
Vitals reasonable. WBC normal. Hemoglobin 7.5.
Abdomen mildly distended. Stoma viable with gas and liquid stool in bag. Some leakage from the bag.
Advance diet to fulls.
ET nursing to assess stoma appliance.
DVT prophylaxis.
Original Note:
Today's Communication / Plan
-
full liquids
Assessment/Plan
-
POD#2 Trephine colostomy
1. Vitals normal.
2. Trend hemoglobin, 7.5 today, which is basically unchanged for most of her admission.
3. OOB with PT.
4. Stoma RN for wound teaching.
5. OOB with PT/OT.
6. Advance diet to fulls.
7. Heparin subq for DVT prophylaxis, TEDS/SCDS in place.
Subjective Data
Procedure
10/16/2023 - Trephine colostomy
Subjective Data
Date of Service: October 18, 2023
Patient states she had a bad night because her colostomy leaked. Otherwise, she has no complaints. She is tolerating clears. Her pain is controlled.
Objective Data
-
Vital Signs
Temp Pulse Resp BP Pulse Ox
97.5 F 68 18 134/65 95
10/18/23 07:15 10/18/23 08:32 10/18/23 08:32 10/18/23 07:15 10/18/23 08:32
Intake & Output
02/01/24 02/02/24 02/03/24
06:59 06:59 06:59
Intake Total 1780 / 1780 1390 / 1390
Output Total 330 / 330 2250 / 2250
Balance 1450 / 1450 -860 / -860
Intake:
Oral fluids 840 / 840 550 / 550
IV fluids (Total) 940 / 940 840 / 840
normosol 100 / 100
IV piggybacks 0 / 0
Output:
Liquid stool amount 175 / 175
Colostomy 175 / 175
Fistula 0 / 0
Rectum 0 / 0
Urine, Pyle 330 / 330 2074
Lab Results
10/18/23 07:37
10/18/23 07:37
Physical Exam
-
General: No Acute Distress and AOx3
Abdomen: Soft, Non Distended, Non Tender and Other (colostomy warm and pink with function)
Skin: Warm and Dry
--- NOTE | 2023-10-18 11:20 | WOUNDNOTE ---
SACRUM (blanchable red)
--- NOTE | 2023-10-18 11:20 | WOUNDNOTE ---
WO RN note: Patient instructed how to open and close pouch. She required verbal instruction and assistance. Plan is SNF when discharged. Stoma pink and budded. RN Jeanne stated security shift manager had to change appliance d/t leakage and nurse Chery changed
it again this am. Current appliance is intact. Ostomy supplies left in room. Sacrum blanchable red. Silicone border foam maintained. Patient turned to L semi side lying position. Patient can turn self in bed. Instructed patient frequent turning and
repositioning. Heels off bed with air chair cushion. Next appliance change due Saturday.
--- NOTE | 2023-10-18 11:23 | CM ---
CM following re: d/c planning
Chart reviewed
Pt discharge anticipated within the next day or two
Post d/c recommendation remains SNF and several referrals were placed by previous CM
This CM called and spoke with the patient's daughter Giovana to confirm her 1st & 2nd SNF choice and she informed this feature writer that 1. [facility] & 2. [facility]
This CM called and spoke with Elisa/clinical liaison for [facility] and she has a bed slotted for the patient dependent upon when she'll be ready for d/c
CM will continue to follow patient progress and assist with continued needs as indicated
PLAN; d/c to [facility] SNF
Report: [phone]
--- NOTE | 2023-10-18 13:59 | W.PN.NEPH.PH ---
Today's Communication / Plan
-
IVF
Assessment/Plan
-
Impression:
CK D stage III ( baseline presumed 1.6)
Hyponatremia
Non-anion gap acidosis (AG 3)
Status post Trephine colostomy for� Vaginal Intestinal fistula
COPD
Rheumatoid arthritis
Dementia
Hypertension
History of lumbar compression fractures
Recent UTI (patient had been� on Bactrim Prior to hospitalization)
Anemia
Plan:
-follow BMP
-IVF with bicarb again today
-
-
Date of Service: October 18, 2023
CC / HPI / ROS
-
Chief Complaint:
JESUS
History of Present Illness:
JESUS/Cr down to 1.3
K low 3.3
acidosis better at 20
BP stable
Review of Systems:
lethargic
no CP
Labs
-
Labs:
WBC 7.0 10^3/uL (4.8-10.8) 10/18/23 07:37
RBC 2.06 10^6/uL (4.20-5.40) L 10/18/23 07:37
Hgb 7.5 g/dL (12.0-16.0) L 10/18/23 07:37
Hct 22.2 % (37.0-47.0) L 10/18/23 07:37
Plt Count 447 10^3/uL (130-400) H 10/18/23 07:37
Sodium 136 mmol/L (135-145) 10/18/23 07:37
Potassium 3.3 mmol/L (3.5-5.1) L 10/18/23 07:37
Chloride 109 mmol/L (98-107) H 10/18/23 07:37
Carbon Dioxide 20 mmol/L (22-30) L 10/18/23 07:37
BUN 22 mg/dl (7-17) H 10/18/23 07:37
Creatinine 1.3 mg/dL (0.6-1.0) H 10/18/23 07:37
eGFR 40.80 10/18/23 07:37
Glucose 84 mg/dl (70-99) 10/18/23 07:37
Calcium 8.7 mg/dl (8.4-10.2) 10/18/23 07:37
Phosphorus 3.4 mg/dl (2.5-4.5) 10/15/23 07:15
Albumin 2.4 g/dl (3.5-5.0) L 10/16/23 20:18
Physical Exam
-
Vital Signs:
Vital Signs
Temp Pulse Resp BP Pulse Ox
97.5 F 68 18 134/65 95
10/18/23 07:15 10/18/23 08:32 10/18/23 08:32 10/18/23 07:15 10/18/23 08:32
Cardiovascular:: Regular rate and rhythm
Respiratory:: Bilateral: Coarse
Lung Excursion:: Normal
Abdomen:: Nontender and Soft
Bowel Sounds:: Normal
Extremity Edema:: None: Bilateral:
[2023-10-18] MEDS: SODIUM BICARBONATE 1150 MEQ IV (14:57)
--- NOTE | 2023-10-18 15:09 | PN.CDI ---
CDI
- -
CDI:
Physician Documentation Request
Admit Date: 10/07/23 14:58
Dear Doctor Clayton,
Patient admitted for vaginal intestinal fistula.
10/17 Hospitalist PN: 'JESUS on CKD IV, likely secondary to recent Bactrim'
10/17 Nephrology consult: 'CKD stage III ( baseline presumed 1.6)'
Laboratory Tests
10/10/23 10/11/23 10/15/23
07:09 08:15 07:15
Creatinine 1.6 H 1.6 H 1.5 H
eGFR 31.80 31.80 34.36
Clarify which of the following accurately represents the patient's renal status:
CKD 3
CKD 4
Other
Stages of Chronic Kidney Disease*
Level Description GFR
G1 Normal or High >90
G2 Mildly decreased 60-89
G3a Mildly to moderately decreased 45-59
G3b Moderately to severely decreased 30-44
G4 Severely decreased 15-29
G5 Kidney failure <15
Use of terms such as suspected, likely, concern for, or probable (associated with a specific diagnosis that is being evaluated, monitored, or treated as if it exists) are acceptable and can be coded in the inpatient setting, when documented at the
time of discharge.
Thank you,
Bee Mckenzie RN, BSN
CDI Specialist
Available via [place] text
Please use your independent medical judgment in providing your response.
*Source: Kidney Disease: Improving Global Outcomes (KDIGO) 2012
[2023-10-18 15:16] VITALS: BP 116/57
--- NOTE | 2023-10-18 15:30 | PN.CDI ---
CDI
- -
CDI:
Physician Documentation Request
Admit Date: 10/07/23 14:58
Dear Doctor Clayton,
Patient admitted for vaginal intestinal fistula.
10/17 Hospitalist PN: 'JESUS on CKD IV, likely secondary to recent Bactrim...near baseline 1.6 per reports'
Laboratory Tests
10/07/23 10/08/23
10:17 07:41
Creatinine 2.3 H 2.0 H
The purpose of this query is not to question medical judgement, but to ensure the accuracy of the conditions reported for your patient.
There is either a lack of clinical support for this condition in the current medical record, or there is a lack of recognized standard criteria to support the condition.
Criteria for JESUS*
1 Increase in serum creatinine by > or = to 0.3 mg/dL (> or = to 26.5 micromol/L) within 48 hours, OR
2 Increase in serum creatinine to > or = to 1.5 times baseline, which is known or presumed to have occurred within 7 days, OR
3 Urine volume < 0.5 nL/kg/hour for six hours
The request is for one of the following:
- Additional documentation to support the condition. Indicate if this is in lieu of what may be considered standard criteria, and/or support why the standard criteria may not be present for this patient.
- A more appropriate diagnosis, reflecting the patient's condition
- Diagnosis JESUS remains a known or suspected condition for this patient and is further supported by (include additional documentation in the medical record)
- Diagnosis JESUS has been ruled out and a more appropriate diagnosis for this patient's condition is CKD
- Other (please specify)
- Unable to determine
Use of terms such as suspected, likely, concern for, or probable (associated with a specific diagnosis that is being evaluated, monitored, or treated as if it exists) are acceptable and can be coded in the inpatient setting, when documented at the
time of discharge.
Thank you,
Bee Mckenzie RN, BSN
CDI Specialist
Available via [place] text
Please use your independent medical judgment in providing your response.
[2023-10-18 16:30] VITALS: BP 106/56; PULSE 58; O2SAT 96
--- NOTE | 2023-10-18 18:23 | W.PN.HOSP.TC ---
Today's Communication/Plan
-
Doing relatively well
Appreciate nephrology and surgery recommendations
Assessment / Plan
Assessment / Plan
Physical Exam
General: Not in acute distress. Cachectic appearing
HEENT: Normocephalic atraumatic
NECK: Supple
RESPIRATORY: Lungs clear to auscultation bilaterally
CVS: S1, S2 normal. RRR.
ABDOMEN: Soft, non-tender. No distension. BS+/normal. Colostomy warm and pink with serous output present.
EXTREMITIES: No peripheral cyanosis or edema.
SHEAR OPERATOR HELPER: AAOx3

82F HTN CKD COPD Rheumatoid Arthritis Dementia Anxiety/Depression presented from [facility] increased back pain concerns with failure to thrive poor oral intake.� On Bactrim for UTI. Labs concerning for mild macrocytic anemia, anemia of chronic
disease, non-iron deficient, B12 wnl and JESUS on CKD initial Cr 2.3 (reported baseline 1.6).� CT abd/pelvis noted moderate L1 and L4 indeterminate compression fractures and moderate intrahepatic dilatation. Abd US further noted intra and extrahepatic
biliary dilatation.� Back pain improved with lidocaine patch.� Endorsed chronic low oral intake, son Johnathon reported ongoing for years, 81 lbs consistent baseline per son. Patient later in evening passed stool and diarrhea via vagina witnessed by
nurse staff and daughter at bedside. Patient has history of hysterectomy �
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
Colorectal Surgery (CRS) spoke (on 10/14/23) to patient's daughter Tonya: CRS will do a bowel prep on 10/14/23, flexible sigmoidoscopy on 10/15/[address] Motley. Then on 10/16/23 she underwent a transverse loop colostomy. As per CRS, patient is
too frail to do a repair on her vaginal/rectum fistula so the colostomy is the next best option. Family is in agreement as per CRS.
Concern for JESUS on CKD 3, likely secondary to recent Bactrim
-Bactrim stopped
-Initial Cr 2.3 improved to 1.7---->1.5---->1.4---->1.6---->1.3 (near baseline 1.6 per reports)
-patient tolerating diet
-Cr stable
Hypomagnesemia
-monitor and replete as necessary
L1 and L4 Vertebral Compression Fractures
-Continue Lidocaine patch
-Continue Tylenol 1000mg TID
-PT/OT appreciated SNF rehab
-tramadol prn mod severe pain, dilaudid for severe breakthrough pain
Recent UTI
-Bactrim stopped due to JESUS
-urinalysis neg for uti
Macrocytic Anemia, likely anemia of chronic disease
-vitamin b12 and folate wnl
-iron non-deficient though iron panel indicates anemia of chronic disease
COPD, no acute exacerbation
-Continue Anoro Ellipta or equivalent
Rheumatoid Arthritis
-Patient maintained on methotrexate as outpatient
Dementia
-Continue donepezil
-Monitor for mood/behavior changes during hospitalization
Anxiety/Depression
-Continue sertraline and mirtazapine
Glaucoma
-Continue latanoprost, dorzolamide-timolol
Severe Protein Calorie Malnutrition
-Consult Dietary
DVT proph: SC Heparin
Code Status: DNR
Anticipated Discharge: 24 - 48 hours
Subjective/Interval History
-
Date of Service: October 18, 2023
Patient was seen and examined. She denied any pain or any other new symptoms or complaints.
Objective Data
-
Labs:
Laboratory Results
10/18/23
07:37
WBC 7.0
Hgb 7.5 L
Hct 22.2 L
Plt Count 447 H
Sodium 136
Potassium 3.3 L
Chloride 109 H
Carbon Dioxide 20 L
BUN 22 H
Creatinine 1.3 H
Glucose 84
Calcium 8.7
Vital Signs:
Vital Signs
Temp Pulse Resp BP Pulse Ox
97.5 F 56 17 116/57 98
10/18/23 15:16 10/18/23 15:16 10/18/23 15:16 10/18/23 15:16 10/18/23 15:16
I&O
10/17/23 10/18/23 10/19/23
06:59 06:59 06:59
Intake Total 1780 / 1780 1390 / 1390 720 / 720
Output Total 330 / 330 2250 / 2250 1200 / 1200
Balance 1450 / 1450 -860 / -860 -480 / -480
[2023-10-18] MEDS: ARICEPT 10 MG PO (21:41)
[2023-10-18] MEDS: MELATONIN 5 MG PO (21:41)
[2023-10-18] MEDS: REMERON 15 MG PO (21:42)
[2023-10-18] MEDS: XALATAN OPHTHALMIC SOLUTION 1 DROP BOTH EYES (21:42)
[2023-10-18 23:37] VITALS: BP 120/64
[2023-10-19 07:05] VITALS: BP 122/65
[2023-10-19] MEDS: SPIRIVA RESPIMAT 2.5 MCG 2 PUFF INH (08:10)
[2023-10-19] MEDS: STRIVERDI RESPIMAT 2 PUFF INH (08:10)
[2023-10-19] MEDS: ZOLOFT 25 MG PO (08:42)
[2023-10-19] MEDS: TYLENOL 1000 MG PO (08:42)
[2023-10-19] MEDS: VISBIOME 1 CAP PO (08:42)
[2023-10-19] MEDS: HEPARIN 5000 UNITS SC (08:42)
[2023-10-19] MEDS: LIDOCAINE 4% PATCH 1 PATCH TOPICAL (08:42)
[2023-10-19] MEDS: COSOPT EYE DROPS 1 DROP BOTH EYES (08:43)
[2023-10-19 09:06] LABS: Hematocrit 24.4 % (37.0-47.0); Hemoglobin 8.4 g/dL (12.0-16.0); Mean Corp Hgb Conc. 34.4 g/dL (33.0-37.0); Mean Corpuscular Hgb 36.5 pg (27.0-31.0); Mean Corpuscular Volume 106.1 fL (81.0-99.0); Mean Platelet Volume 9.9 fL (7.4-10.4); Platelet Count 420 10^3/uL (130-400); Red Cell Dist. Width 19.5 % (11.5-14.5); White Blood Cell Count 6.5 10^3/uL (4.8-10.8)
[2023-10-19 09:36] LABS: Blood Urea Nitrogen 17 mg/dl (7-17); Calcium 8.8 mg/dl (8.4-10.2); Carbon Dioxide 25 mmol/L (22-30); Chloride 105 mmol/L (98-107); Estimated Creatinine Clearance 20 ml/min; Glucose 79 mg/dl (70-99); Potassium 4.5 mmol/L (3.5-5.1); Sodium 136 mmol/L (135-145); eGFR 44.91
--- NOTE | 2023-10-19 09:41 | W.PN.CRS1 ---
Today's Communication / Plan
-
Low residue diet
Assessment/Plan
-
POD# 3 trephine colostomy
1. Vitals normal.
2. Hemoglobin improving, now 8.4 from 7.5.
3. OOB with PT.
4. Stoma RN for wound teaching.
5. OOB with PT/OT.
6. Advance diet to low residue.
7. Heparin subq for DVT prophylaxis, TEDS/SCDS in place.
Subjective Data
Procedure
10/16/2023 - Trephine colostomy
Subjective Data
Date of Service: October 19, 2023
Patient states she had some colostomy leakage overnight. Otherwise, she states she has no abdominal pain, just 'soreness'. She has no nausea or vomiting. Her colostomy is producing.
Objective Data
-
Vital Signs
Temp Pulse Resp BP Pulse Ox
97.4 F 69 16 122/65 98
10/19/23 07:05 10/19/23 08:16 10/19/23 08:16 10/19/23 07:05 10/19/23 08:16
Intake & Output
10/18/23 10/19/23 10/20/23
06:59 06:59 06:59
Intake Total 1390 / 1390 1800 / 1800
Output Total 2250 / 2250 1800 / 1800
Balance -860 / -860 0 / 0
Intake:
Oral fluids 550 / 550 960 / 960
IV fluids (Total) 840 / 840 840 / 840
IV piggybacks 0 / 0
Output:
Liquid stool amount 175 / 175 500 / 500
Colostomy 175 / 175 500 / 500
Fistula 0 / 0 0 / 0
Rectum 0 / 0 0 / 0
Urine, Pyle 2074
Urine, Voided 1300 / 1300
Other:
Number of approximated LARGE 1
amounts of urine
Lab Results
10/19/23 07:50
10/19/23 07:50
Physical Exam
-
General: No Acute Distress and AOx3
Abdomen: Soft, Non Distended, Non Tender and Other (Colostomy warm and pink and function)
Skin: Warm and Dry
--- NOTE | 2023-10-19 10:47 | W.PN.NEPH.PH ---
Today's Communication / Plan
-
encourage po intake
Assessment/Plan
-
Impression:
CK D stage III ( baseline presumed 1.6)
Hyponatremia
Non-anion gap acidosis (AG 3)
Status post Trephine colostomy for� Vaginal Intestinal fistula
COPD
Rheumatoid arthritis
Dementia
Hypertension
History of lumbar compression fractures
Recent UTI (patient had been� on Bactrim Prior to hospitalization)
Anemia
Plan:
-follow BMP
-no IVF
-encourage po intake
-
-
Date of Service: October 19, 2023
CC / HPI / ROS
-
Chief Complaint:
JESUS
History of Present Illness:
JESUS/Cr down to 1.2
K up to 4.5
acidosis resolves
BP stable
Review of Systems:
no SOB
no CP
Labs
-
Labs:
WBC 6.5 10^3/uL (4.8-10.8) 10/19/23 07:50
RBC 2.30 10^6/uL (4.20-5.40) L 10/19/23 07:50
Hgb 8.4 g/dL (12.0-16.0) L 10/19/23 07:50
Hct 24.4 % (37.0-47.0) L 10/19/23 07:50
Plt Count 420 10^3/uL (130-400) H 10/19/23 07:50
Sodium 136 mmol/L (135-145) 10/19/23 07:50
Potassium 4.5 mmol/L (3.5-5.1) D 10/19/23 07:50
Chloride 105 mmol/L (98-107) 10/19/23 07:50
Carbon Dioxide 25 mmol/L (22-30) 10/19/23 07:50
BUN 17 mg/dl (7-17) 10/19/23 07:50
Creatinine 1.2 mg/dL (0.6-1.0) H 10/19/23 07:50
eGFR 44.91 10/19/23 07:50
Glucose 79 mg/dl (70-99) 10/19/23 07:50
Calcium 8.8 mg/dl (8.4-10.2) 10/19/23 07:50
Phosphorus 3.4 mg/dl (2.5-4.5) 10/15/23 07:15
Albumin 2.4 g/dl (3.5-5.0) L 10/16/23 20:18
Physical Exam
-
Vital Signs:
Vital Signs
Temp Pulse Resp BP Pulse Ox
97.4 F 69 16 122/65 98
10/19/23 07:05 10/19/23 08:16 10/19/23 08:16 10/19/23 07:05 10/19/23 08:16
Cardiovascular:: Regular rate and rhythm
Respiratory:: Bilateral: Coarse
Lung Excursion:: Normal
Abdomen:: Nontender and Soft
Bowel Sounds:: Normal
Extremity Edema:: None: Bilateral:
--- NOTE | 2023-10-19 11:37 | CM ---
Addendum entered by Sandra Harris 10/19/23 14:43:
Ambulance transport scheduled between 5-5:30 pm.
Addendum entered by Sandra Harris 10/19/23 13:53:
IMM completed.
Patient will require ambulance transport.
Original Note:
Patient for possible d/c to [facility] today.
PLAN; d/c to [facility] SNF
Report: [phone]
--- NOTE | 2023-10-19 14:54 | W.PN.HOSP.TC ---
Today's Communication/Plan
-
Discharge today
Assessment / Plan
Assessment / Plan
Physical Exam
General: Not in acute distress. Cachectic appearing
HEENT: Normocephalic atraumatic
NECK: Supple
RESPIRATORY: Lungs clear to auscultation bilaterally
CVS: S1, S2 normal. RRR.
ABDOMEN: Soft, non-tender. No distension. BS+/normal. Colostomy warm and pink.
EXTREMITIES: No peripheral cyanosis or edema.
BRANCH MANAGER: AAOx3

82F HTN CKD COPD Rheumatoid Arthritis Dementia Anxiety/Depression presented from [facility] increased back pain concerns with failure to thrive poor oral intake.� On Bactrim for UTI. Labs concerning for mild macrocytic anemia, anemia of chronic
disease, non-iron deficient, B12 wnl and JESUS on CKD initial Cr 2.3 (reported baseline 1.6).� CT abd/pelvis noted moderate L1 and L4 indeterminate compression fractures and moderate intrahepatic dilatation. Abd US further noted intra and extrahepatic
biliary dilatation.� Back pain improved with lidocaine patch.� Endorsed chronic low oral intake, son Johnathon reported ongoing for years, 81 lbs consistent baseline per son. Patient later in evening passed stool and diarrhea via vagina witnessed by
nurse staff and daughter at bedside. Patient has history of hysterectomy �
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
Colorectal Surgery (CRS) spoke (on 10/14/23) to patient's daughter Tonya: CRS will do a bowel prep on 10/14/23, flexible sigmoidoscopy on 10/15/[address] Motley. Then on 10/16/23 she underwent a transverse loop colostomy. As per CRS, patient is
too frail to do a repair on her vaginal/rectum fistula so the colostomy is the next best option. Family is in agreement as per CRS.
#Concern for JESUS on CKD 3, likely secondary to recent Bactrim
-Bactrim stopped
-Initial Cr 2.3 improved to 1.7---->1.5---->1.4---->1.6---->1.3---->1.2 (near baseline 1.6 per reports)
-patient tolerating diet
-Cr stable
#Hypomagnesemia - RESOLVED
-monitor and replete as necessary
#Tubular structure in the right upper quadrant adjacent to the common bile duct on Abdominal Imaging
#Probable intra and extrahepatic biliary dilatation
#Moderate intrahepatic dilatation on CT Abdomen Pelvis
-Follow-up with gastroenterology outpatient
#L1 and L4 Vertebral Compression Fractures
-Continue Lidocaine patch
-Continue Tylenol 1000mg TID prn
-PT/OT appreciated SNF rehab
-tramadol prn mod severe pain, dilaudid for severe breakthrough pain
#Less than 1 mm nonobstructing right renal stone on CT Abdomen Pelvis
#Large right parapelvic renal cyst on CT Abdomen Pelvis
#Mild diverticulosis on CT Abdomen Pelvis
#Recent Urinary Tract Infection
-Bactrim stopped due to JESUS
-urinalysis neg for uti
#Macrocytic Anemia, likely anemia of chronic disease
-vitamin b12 and folate wnl
-iron non-deficient though iron panel indicates anemia of chronic disease
#COPD, no acute exacerbation
-Continue Anoro Ellipta or equivalent
#Rheumatoid Arthritis
-Patient maintained on methotrexate as outpatient
#Dementia
-Continue donepezil
-Monitor for mood/behavior changes during hospitalization
#Anxiety/Depression
-Continue sertraline and mirtazapine
#Glaucoma
-Continue latanoprost, dorzolamide-timolol
#Severe Protein Calorie Malnutrition
-Consult Dietary
DVT Prophylaxis: Subq Heparin
Code Status: DNR
More than 30 minutes spent in discharge including
Final examination of the patient
Summarizing hospital stay
Instructions for continuing care to all relevant caregivers
Preparation of discharge records, prescriptions, and referral forms
Total time spent (in minutes): 38
Anticipated Discharge: Today
Subjective/Interval History
-
Date of Service: October 19, 2023
Patient was seen and examined. She reported no new symptoms.
Objective Data
-
Labs:
Laboratory Results
10/19/23
07:50
WBC 6.5
Hgb 8.4 L
Hct 24.4 L
Plt Count 420 H
Sodium 136
Potassium 4.5 D
Chloride 105
Carbon Dioxide 25
BUN 17
Creatinine 1.2 H
Glucose 79
Calcium 8.8
Vital Signs:
Vital Signs
Temp Pulse Resp BP Pulse Ox
97.4 F 69 16 122/65 98
10/19/23 07:05 10/19/23 08:16 10/19/23 08:16 10/19/23 07:05 10/19/23 08:16
I&O
10/18/23 10/19/23 10/20/23
06:59 06:59 06:59
Intake Total 1390 / 1390 1800 / 1800
Output Total 2250 / 2250 1800 / 1800
Balance -860 / -860 0 / 0
[2023-10-19 15:30] VITALS: BP 141/73
--- NOTE | 2023-10-19 16:00 | W.DS.TRANS ---
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
-
Discharge Instructions:
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
Post Trephine Colostomy on 10/16/23
#Concern for Acute Kidney Injury on Chronic
Kidney Disease Stage 3, likely secondary to
recent Bactrim
#Hypomagnesemia - RESOLVED
#Tubular structure in the right upper quadrant
adjacent to the common bile duct on Abdominal
Imaging
#Probable intra and extrahepatic biliary
dilatation
#Moderate intrahepatic dilatation on CT Abdomen
Pelvis
#L1 and L4 Vertebral Compression Fractures
#Less than 1 mm nonobstructing right renal stone
on CT Abdomen Pelvis
#Large right parapelvic renal cyst on CT Abdomen
Pelvis
#Mild diverticulosis on CT Abdomen Pelvis
#Recent Urinary Tract Infection
#Macrocytic Anemia, likely anemia of chronic
disease
#Chronic Obstructive Pulmonary Disease, no acute
exacerbation
#Rheumatoid Arthritis
#Dementia
#Anxiety/Depression
#Glaucoma
#Severe Protein Calorie Malnutrition
Diet Low Residue
Activity No strenuous activity
Additional Activity No lifting over 10 pounds
Driving Restrictions Not until seen by your Dr
Bathing Restrictions OK to Shower
Blood Work Recheck CBC, CMP and Magnesium by Saturday
October 21, 2022
Other Services PT,OT
Instructions:
Stand-Alone Forms:
Changes to Home Medications: Yes
Discharge Medications:
DC Medications w/original date entered in [employer]
albuterol sulfate 2.5 mg/3 mL (0.083 %) solution for nebulization 2.5 mg inhalation Q4H PRN shortness of breath 10/07/23
diphenhydramine 25 mg-acetaminophen 500 mg tablet (Tylenol PM Extra Strength) 1 tab PO HS pain and sleep 10/07/23
donepezil 10 mg tablet 10 mg PO HS Neurological Condition 10/07/23
dorzolamide 22.3 mg-timolol 6.8 mg/mL eye drops 1 drp BOTH EYES BID Eye Condition 10/07/23
lactobacillus combination no.4 3 billion cell capsule (Probiotic) 3,000 mmu cells PO DAILY with antibiotic use 10/07/23
latanoprost 0.005 % eye drops 1 drp BOTH EYES HS Eye Condition 10/07/23
loperamide 2 mg capsule 2 mg PO Q6H PRN loose stools 10/07/23
methotrexate sodium 2.5 mg tablet 7.5 mg PO SANTIAGO@0800 arthritis 10/07/23
miconazole nitrate 2 % topical cream 1 applic topical BID PRN labial itchiness 10/07/23
mirtazapine 15 mg tablet 15 mg PO HS Neurological Condition 10/07/23
nystatin 100,000 unit/gram topical cream 1 applic topical TID rash 10/07/23
ondansetron HCl 4 mg tablet 4 mg PO Q8HPRN PRN nausea and vomiting 10/07/23
potassium chloride 20 mEq tablet,extended release(part/cryst) 20 meq PO DAILY Electrolyte Repletion 10/07/23
sertraline 25 mg tablet 25 mg PO DAILY Mental Health 10/07/23
umeclidinium 62.5 mcg-vilanterol 25 mcg/actuation powdr for inhalation (Anoro Ellipta) 1 inh inhalation DAILY Lung/Breathing Issues 10/07/23
Lactobac/Bifidobac [Visbiome] 1 cap PO DAILY #7 caps 10/19/23
acetaminophen 500 mg tablet (Acetaminophen Extra Strength) 1,000 mg PO Q8HPRN PRN lower back pain #0 tabs 10/19/23
lidocaine 4 % topical patch 1 patch topical DAILY #10 ea 10/19/23
melatonin 5 mg tablet 5 mg PO HS #20 tabs 10/19/23
Home Medication Changes
New medications include Visbiome, Lidocaine patch and Melatonin
Stopped Bactrim and extra Tylenol
Pending Results: Yes
Additional Pending Results:
RODRIGUEZ and SPEP labwork results
Total time spent discharging patient (in min): 38
--- NOTE | 2023-10-21 09:21 | W.DCSUMMARY ---
Discharge Summary
Discharge Data
Date of Admission: 10/07/23
Date of Discharge: 10/19/23
Total time spent discharging patient (in min): 38
-
Pending Results: Yes
Additional Pending Results:
RODRIGUEZ and SPEP labwork results
Hospital Course
82 y/o female with past medical history of hypertension, chronic kidney disease, chronic obstructive pulmonary disease, rheumatoid arthritis, dementia, and anxiety/depression presented from [facility] with increased back pain with concerns with failure
to thrive and poor oral intake. Patient was started on intravenous fluids for acute kidney injury. Patient's outpatient Bactrim for urinary tract infection was stopped in the setting of acute kidney injury and urinalysis not suggesting a urinary
tract infection. Patient's acute kidney injury later improved.
Patient was found to have a suspected vaginal intestinal fistula, and colorectal surgery was consulted. Colorectal Surgery (CRS) spoke (on 10/14/23) to patient's daughter Tonya: the plan was for a bowel prep on 10/14/23, followed by flexible
sigmoidoscopy (which showed diverticulosis, and vaginal exam with stool and fistula at the apex) on 10/15/[address] Motley; then on 10/16/23 patient would undergo a transverse loop colostomy. As per CRS, patient is too frail to do a repair on her
vaginal/rectum fistula so the colostomy was the next best option. On October 16, 2023, patient had a trephine colostomy performed. Patient was hypothermia after the procedure and was placed on Carrie Hugger; patient's temperature later was stable
without Carrie Hugger. Patient was placed on intravenous alkaline intravenous fluids for non-gap metabolic acidosis.
Patient was stable for discharge.
Discharge Plan
-
Patient Disposition: Jail/SNF
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
#Concern for Acute Kidney Injury on Chronic Kidney Disease Stage 3, likely secondary to recent Bactrim
#Hypomagnesemia - RESOLVED
#Tubular structure in the right upper quadrant adjacent to the common bile duct on Abdominal Imaging
#Probable intra and extrahepatic biliary dilatation
#Moderate intrahepatic dilatation on CT Abdomen Pelvis
#L1 and L4 Vertebral Compression Fractures
#Less than 1 mm nonobstructing right renal stone on CT Abdomen Pelvis
#Large right parapelvic renal cyst on CT Abdomen Pelvis
#Mild diverticulosis on CT Abdomen Pelvis
#Recent Urinary Tract Infection
#Macrocytic Anemia, likely anemia of chronic disease
#Chronic Obstructive Pulmonary Disease, no acute exacerbation
#Rheumatoid Arthritis
#Dementia
#Anxiety/Depression
#Glaucoma
#Severe Protein Calorie Malnutrition
Condition: Fair
Diet: Low Residue
Activity: No strenuous activity
Additional Activity: No lifting over 10 pounds
Driving Restrictions: Not until seen by your Dr
Bathing Restrictions: OK to Shower
Blood Work: Recheck CBC, CMP and Magnesium by Friday October 21, 2022
Other Services: PT and OT
Activity Restrictions/Additional Instructions:
Osotmy supplies: [place] wafer # [id number], Michelle seal, [place] pouch # [id number], change 2 times a week and as needed for leakage. If leakage a problem, try [place] soft convex wafer # [id number] instead.
Call supply company (list in folder provided) for monthly Ostomy supplies after discharge (ask VN to order supplies while on service).
Follow up with surgeon.
Call [facility] RN nurse for ostomy pouching concerns or leakage problems [phone] or [phone] or [phone].
Referrals:
Jason Motley MD [Active] - in two weeks
Chris Hall MD [Family Provider] - in less than 1 week
nAgelita Christine MD [Active] - in two to four weeks (Biliary dilatation on imaging during hospitalization)
Prescriptions:
New
lidocaine 4 % Adhesive Patch,Medicated
1 patch topical DAILY Qty: 10 0RF
melatonin 5 mg Tablet
5 mg PO HS Qty: 20 0RF
Lactobac/Bifidobac [Visbiome]
1 cap PO DAILY Qty: 7 0RF
Continued
latanoprost 0.005 % drops
1 drp BOTH EYES HS
albuterol sulfate 2.5 mg /3 mL (0.083 %) Solution For Nebulization
2.5 mg INHALATION Q4H PRN (Reason: shortness of breath)
loperamide 2 mg Capsule
2 mg PO Q6H PRN (Reason: loose stools)
miconazole nitrate 2 % Cream
1 applic TOPICAL BID PRN (Reason: labial itchiness)
donepezil 10 mg tablet
10 mg PO HS
ondansetron HCl 4 mg tablet
4 mg PO Q8HPRN PRN (Reason: nausea and vomiting)
potassium chloride 20 mEq tablet,ER particles/crystals
20 meq PO DAILY
methotrexate sodium 2.5 mg Tablet
7.5 mg PO SANTIAGO@0800
nystatin 100,000 unit/gram Cream
1 applic TOPICAL TID
sertraline 25 mg Tablet
25 mg PO DAILY
dorzolamide-timolol 22.3-6.8 mg/mL Drops
1 drp BOTH EYES BID
mirtazapine 15 mg tablet
15 mg PO HS
diphenhydramine-acetaminophen [Tylenol PM Extra Strength] 25-500 mg Tablet
1 tab PO HS
Probiotic 3 billion cell Capsule
3,000 mmu cells PO DAILY
Anoro Ellipta 62.5-25 mcg/actuation Blister With Device
1 inh INHALATION DAILY
Changed
acetaminophen [Acetaminophen Extra Strength] 500 mg Tablet
1,000 mg PO Q8HPRN PRN (Reason: lower back pain) Qty: 0 0RF
Discontinued
sulfamethoxazole-trimethoprim [Bactrim DS] 800-160 mg Tablet
1 tab PO BID
Rx Instructions:
x 7 days, started 10/03/23
acetaminophen [Acetaminophen Extra Strength] 500 mg Tablet
1,000 mg PO DAILY
Discharge Orders:
Discharge Patient (As Directed); Ordered 10/19/23
Ordered By: Yang Arnold
Discharge Date and Time
Discharge Date/Time: 10/19/23 18:01
[2023-10-21 21:00] LABS: Albumin 2.28 g/dL (3.75-5.01); Alpha 1 Globulin 0.31 g/dL (0.19-0.46); Alpha 2 Globulin 0.63 g/dL (0.48-1.05); SPEP IFE Reflex Not Done; Total Protein-Electrophoresis 5.5 g/dL (6.3-8.2)
== END 2023-10-19 18:01 | DRG 329 ==
LOC: 4 WEST ACU 14:58
PROVIDERS: Physician Assistant; Physician Assistant Medical; Specialist; Surgery; ADMITTING PHYSICIAN Internal Medicine; ATTENDING PHYSICIAN Hospitalist; CONSULT PHYSICIAN Internal Medicine; CONSULT PHYSICIAN Surgery; EMERGENCY PHYSICIAN Emergency Medicine; FAMILY PHYSICIAN Family Medicine
PROC: 0DJD8ZZ Inspection of Lower Intestinal Tract, Via Natural or Artificial Opening Endoscopic (ICD-10-PCS; 2023-10-16)
PROC: 0D1N0Z4 Bypass Sigmoid Colon to Cutaneous, Open Approach (ICD-10-PCS; 2023-10-16)
DX: N82.3 Fistula of vagina to large intestine (principal); E43 Unspecified severe protein-calorie malnutrition; N17.9 Acute kidney failure, unspecified; Z68.1 Body mass index [BMI] 19.9 or less, adult; F03.94 Unspecified dementia, unspecified severity, with anxiety; F03.93 Unspecified dementia, unspecified severity, with mood disturbance; I12.9 Hypertensive chronic kidney disease with stage 1 through stage 4 chronic kidney disease, or unspecified chronic kidney disease; J44.9 Chronic obstructive pulmonary disease, unspecified; E83.42 Hypomagnesemia; D63.8 Anemia in other chronic diseases classified elsewhere; M06.9 Rheumatoid arthritis, unspecified; N18.30 Chronic kidney disease, stage 3 unspecified
CPT/HCPCS: 74176; 76700; 80048; 80053; 81003; 81015; 82570; 82607; 82728; 82746; 83540; 83550; 83735; 84100; 84155; 84156; 84165; 84443; 85014; 85018; 85025; 85027; 85610; 85730; 86850; 86870; 86900; 86901; 86902; 86905; 86920; 86922; 87070; 87147; 93005; 94640; 96360; 96361; 97116; 97162; 97164; 97166; 97530; 99285; J1335

== ENCOUNTER 2023-11-19 22:07 | Inpatient (IN) | payer MEDICARE, OTHER, SELFPAY ==
[2023-11-19] VITALS (7 sets, daily range): BP systolic 109–139; BP diastolic 65–93; BMI 13.8
[2023-11-19 20:33] LABS: % Eosinophils 13.8 % (0-6); % Lymphocytes 82.5 % (20.5-51.1); % Neutrophils 3.7 % (42.2-75.2); Absolute Eosinophils 0.1 10^3/uL (0-0.7); Absolute Lymphocytes 0.7 10^3/uL (1.2-3.4); Mean Corp Hgb Conc. 35.6 g/dL (33.0-37.0); Mean Corpuscular Hgb 36.9 pg (27.0-31.0); Mean Corpuscular Volume 103.7 fL (81.0-99.0); Mean Platelet Volume 10.9 fL (7.4-10.4); Nucleated Red Blood Cells % 0 %; Red Blood Cell Count 1.87 10^6/uL (4.20-5.40); Red Cell Dist. Width 12.8 % (11.5-14.5)
[2023-11-19 20:49] LABS: Hematocrit 19.4 % (37.0-47.0); Hemoglobin 6.9 g/dL (12.0-16.0); Platelet Count 6 10^3/uL (130-400); White Blood Cell Count 0.8 10^3/uL (4.8-10.8)
[2023-11-19 20:52] LABS: ALT (SGPT) 11 U/L (0-35); AST (SGOT) 18 U/L (14-36); Albumin 2.8 g/dl (3.5-5.0); Alkaline Phosphatase 149 U/L (38-126); Blood Urea Nitrogen 46 mg/dl (7-17); Calcium 9.6 mg/dl (8.4-10.2); Carbon Dioxide 24 mmol/L (22-30); Chloride 103 mmol/L (98-107); Estimated Creatinine Clearance 16 ml/min; Glucose 120 mg/dl (70-99); Potassium 4.1 mmol/L (3.5-5.1); Sodium 132 mmol/L (135-145); Total Bilirubin 0.5 mg/dl (0.2-1.3); Total Protein 6.6 g/dl (6.3-8.2)
--- NOTE | 2023-11-19 20:53 | ED.GENMED ---
History of Present Illness
General
Chief Complaint: Abnormal Lab Value
Source: patient and family
Exam Limitations: none
Time Seen by Provider: 11/19/23 20:42
Travel History
Have you had any contact with someone who has COVID-19?: No
Do you have any symptoms of coronavirus? Fever > 100 degrees, chills, cough, shortness of breath, sore throat, loss of taste or smell, muscle aches, or headache?: No
History of Present Illness
History of Present Illness:
82-year-old female chronically anemic but presents with general deterioration increased weakness and fatigue and a low hemoglobin at the facility. There may have been some recent vaginal bleeding. Patient has a recent colostomy from a rectovaginal
fistula. She complains of chronic back pain however this is unchanged
Past History
Past History
ED Past Medical History: HTN, Psychiatric and Other (Dementia)
ED Past Surgical History: Cholecystectomy and Gynecological
Social History
Tobacco: Former smoker
Alcohol: None
Drug: None
Living: assisted living
Review of Systems
Review of Systems
All Other Systems: Not applicable
Constitutional: Reports weight loss and fatigue; Denies fever
Respiratory: Reports no symptoms
Cardiac: Reports no symptoms
ABD/GI: Reports no symptoms
Phy Exam
Physical Exam
Physical Exam:
GENERAL: Alert. Cachectic. Thin. Hard of hearing. Chronically ill-appearing
EYE: Orbits normal.
NECK: Supple, no significant adenopathy.
ENT: Pharynx without erythema. Small blisters on the inside of the mucosa
CARDIAC: Regular rate and rhythm without any obvious murmurs.
LUNGS: Clear breath sounds,normal
ABDOMEN: Soft, without focal tenderness or distention. Colostomy functioning well. Slightly dark but test negative
NEUROLOGICAL: Alert. Grossly nonfocal
SKIN: Warm and dry, no rash or lesion, no discoloration, skin intact.
MUSCULOSKELETAL: Thin and cachectic
PSYCH: Normal and appropriate interaction.
Course
Orders/Labs/Results
Orders:
Orders
11/19/23 20:24
Type+Screen Urgent
Complete Blood Count/With Diff Urgent
Comprehensive Metabolic Panel Urgent
Ferritin Urgent
Comment: ADD ON
Iron Urgent
LDH Urgent
Reticulocyte Count Urgent
Comment: ADD ON
Total Iron Binding Urgent
Vitamin B12 Urgent
Comment: ADD ON
11/19/23 21:38
Add On- LAB Urgent
Tests Added?: iron, ferritin, tibc, folate, vitb12, retic count, ldh, haptoglob
* Blood Bank Products Routine
Blood Bank Products: *Packed RBC Leuko(PRBC's)
Quantity: 1
Transfuse Today: Yes
Reason: Anemia
* Blood Bank Products Routine
Blood Bank Products: *Plt Single Donor Leuko
Quantity: 1
Transfuse Today: Yes
Reason: Thrombocytopenia
11/19/23 21:40
Admit/Transfer Patient As Directed
Co-Sign Provider:
Level of Care: Inpatient admission
Assign to:: Telemetry
Physician / Group: Michael
Diagnosis: Pancytopenia
Reason for Telemetry: Arrhythmia
Date to Stop Telemetry: 11/22/23
Time to Stop Telemetry: 11:00
Reason for Hospitalization: transfusion, hematology consult
Expected length of stay greater than two midnights?: Yes
ELOS- Estimated Length of Stay in days: 3
I certify the patient meets the requirements for IP care: Yes
11/19/23 21:44
Code Status As Directed
Resuscitation Status: Do not resuscitate
Reached after discussion with pt or family/Healthcare POA: Yes
DNR Bracelet Application ONCE
11/19/23 21:47
Urinalysis Reflex To Culture Urgent
11/19/23 21:48
CR Chest - 2 Views Urgent
Comment:
Reason For Exam: cough
11/19/23 22:08
COVID-19 Antigen Urgent
Source: Nasal Swab
Influenza A+B Rapid Molecular Urgent
EDUARDO Source: Nasal Swab
Specimen Description:
11/19/23 23:39
Haptoglobin [S] Urgent
Comment: ADD ON
Blood Culture Q30M
EDUARDO Source: Blood/Venous
Specimen Description:
Blood Culture Q30M
EDUARDO Source: Blood/Venous
Specimen Description:
Abnormal Lab Results
11/19/23
20:24
WBC 0.8 L* 10^3/uL
(4.8-10.8)
RBC 1.87 L 10^6/uL
(4.20-5.40)
Hgb 6.9 L* g/dL
(12.0-16.0)
Hct 19.4 L* %
(37.0-47.0)
MCV 103.7 H fL
(81.0-99.0)
MCH 36.9 H pg
(27.0-31.0)
Plt Count 6 L* 10^3/uL
(130-400)
MPV 10.9 H fL
(7.4-10.4)
Absolute Neuts (auto) 0.0 L* 10^3/uL
(1.4-6.5)
Absolute Lymphs (auto) 0.7 L 10^3/uL
(1.2-3.4)
Absolute Monos (auto) 0.0 L 10^3/uL
(0.1-0.6)
Neutrophils % 3.7 L %
(42.2-75.2)
Lymphocytes % 82.5 H %
(20.5-51.1)
Monocytes % 0.0 L %
(1.7-9.3)
Eosinophils % 13.8 H %
(0-6)
Retic Count 0.3 L %
(0.4-2.8)
Sodium 132 L mmol/L
(135-145)
BUN 46 H mg/dl
(7-17)
Creatinine 1.6 H mg/dL
(0.6-1.0)
Glucose 120 H mg/dl
(70-99)
TIBC 151 L ug/dl
(265-497)
% Saturation 74 H %
(20-50)
Alkaline Phosphatase 149 H U/L
(38-126)
Albumin 2.8 L g/dl
(3.5-5.0)
Antibody Screen Positive A
(Negative)
11/19/23 20:24
11/19/23 20:24
Vital Signs
Initial and Last Documented VS:
Initial Vital Signs
BP
139/74
11/19/23 20:24
Last Documented Vital Signs
Temp Pulse Resp BP Pulse Ox
98.1 F 107 23 129/65 94
11/19/23 22:40 11/19/23 22:40 11/19/23 22:40 11/19/23 22:40 11/19/23 22:40
*Critical Care Note
Total Time (30-74mins, 75-104mins- exclusive of procedures): Not Applicable
Update Note
Update Note:
A very minuscule amount of bright red blood on her diaper. No obvious vaginal bleeding. Pancytopenia. Warrants admission and further care. Consent signed
ED Attending Note
-
Portions of this chart may have been created with voice recognition software.� Occasional wrong word or��sound alike� substitutions may have occurred due to the inherent limitations of voice recognition software.
Discharge Plan
Departure
Patient Disposition: Admit
Date of Disposition: 11/19/23
Time of Disposition: 21:03
Presentation/result/management discussed w/ accepting MD/DO: Hospitalist
Discharge Problem:
Pancytopenia, Pancytopenia chronic anemia
Interventions
Interventions:
*Risk Screen - Suicide Last Done: 11/19/23 20:25
*General Assessment Last Done: 11/19/23 20:25
*Neglect/Abuse Screening Last Done: 11/19/23 20:25
ED- Fall Risk Assessment Last Done: 11/19/23 20:25
*ED COVID-19 Vaccine History Last Done: 11/19/23 20:25
[2023-11-19 21:58] LABS: Reticulocyte Count 0.3 % (0.4-2.8)
--- NOTE | 2023-11-19 22:03 | HPS.HSE ---
Addendum entered and electronically signed by Marcelo Rodriguez MD 11/19/23 23:07:
Patient seen and examined independently with PA. 82-year-old female past medical history of dementia, COPD, rheumatoid arthritis on methotrexate, recent colostomy for colovaginal fistula presenting with bruising, nosebleeds, and painful oral
lesions for the past week. He had 1 episode of vaginal bleeding since resolved. Patient had blood work which showed severe thrombocytopenia and leukopenia and anemia and brought to the emergency room. Patient started on Keflex yesterday for oral
lesions.
Labs show pancytopenia unclear etiology, could be aplastic anemia secondary to methotrexate versus hemolytic process. He also has severe neutropenia .Check iron studies, B12 and folate. Check reticulocyte count, LDH and haptoglobin to evaluate for
analysis. Check coags. Hold methotrexate. 1 unit of blood and platelet transfusion. Hematology consulted.
Only evidence of infection on examination his oral lesions which could be herpes lesions. Check blood cultures. ID consulted recommended topical acyclovir although she has lesions in her mouth as well. Discontinue Keflex.
Original Note:
Family Physician
-
Family Physician: Deven Sheriff
Chief Complaint
-
Abnormal Lab Values
History of Present Illness
Patient is an 82 y/o female with PMH of dementia, failure to thrive, COPD, and rheumatoid arthritis who presents to the ED from [facility] facility after they noticed anemia, leukopenia, and thrombocytopenia. Daughter at bedside gave most
history. 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 Daughter notes that the patient has been more fatigued for the past week. Daughter notes some easy bruising and nose bleeds, as well as one
episode of vaginal bleeding was noted yesterday at the [facility] facility. Daughter reports prior history of anemia, but no prior history of low platelet or white blood cell count. Patient denies pain, fevers, chills, and sweats.
Medical History
Past Medical History
Past Medical History: Reports Other
Additional Past Medical History:
Essential Hypertension
CKD Stage IV
COPD
Rheumatoid Arthritis
Glaucoma
Dementia
Anxiety/Depression
Past Surgical History: Reports Other
Additional Past Surgical History:
Cholecystectomy
Hysterectomy
Colostomy
Social History
Tobacco: Former Smoker
Living: Assisted Living
Family History
Family History: Not pertinent
Allergies / Home Medications
Allergies reflects when Allergies were last updated in [facility].
Home Medications with original date entered in [facility]
Allergy/Medication List:
Allergies
Allergy/AdvReac Type Severity Reaction Status Date / Time
No Known Allergies Allergy Unverified 10/07/23 09:40
Home Medications
albuterol sulfate 2.5 mg/3 mL (0.083 %) solution for nebulization 2.5 mg inhalation R Q4 PRN sob 10/07/23
donepezil 10 mg tablet 10 mg PO HS Neurological Condition 10/07/23
dorzolamide 22.3 mg-timolol 6.8 mg/mL eye drops 1 drp BOTH EYES BID Eye Condition 10/07/23
lactobacillus combination no.4 3 billion cell capsule (Probiotic) 3,000 mmu cells PO DAILY 10/07/23
latanoprost 0.005 % eye drops 1 drp BOTH EYES HS Eye Condition 10/07/23
loperamide 2 mg capsule 2 mg PO Q6H PRN loose stools 10/07/23
methotrexate sodium 2.5 mg tablet 7.5 mg PO SANTIAGO@0800 arthritis 10/07/23
miconazole nitrate 2 % topical cream 1 applic topical BID PRN labial itchiness 10/07/23
mirtazapine 15 mg tablet 15 mg PO HS Neurological Condition 10/07/23
ondansetron HCl 4 mg tablet 4 mg PO Q8H PRN nausea/vomiting 10/07/23
potassium chloride 20 mEq tablet,extended release(part/cryst) 20 meq PO DAILY Electrolyte Repletion 10/07/23
sertraline 25 mg tablet 25 mg PO DAILY Mental Health 10/07/23
umeclidinium 62.5 mcg-vilanterol 25 mcg/actuation powdr for inhalation (Anoro Ellipta) 1 inh inhalation R DAILY Lung/Breathing Issues 10/07/23
lidocaine 4 % topical patch 1 patch topical DAILY #10 ea 10/19/23
melatonin 5 mg tablet 5 mg PO HS #20 tabs 10/19/23
Saccharomyces boulardii 250 mg capsule (Probiotic (S.boulardii)) 250 mg PO DAILY 11/19/23
acetaminophen 325 mg tablet 650 mg PO Q6H PRN mild pain/temp>100 11/19/23
bisacodyl 10 mg rectal suppository (Dulcolax (bisacodyl)) 10 mg FL DAILY PRN if mom ineffective 11/19/23
cephalexin 500 mg capsule 500 mg PO BID 11/19/23
ferrous sulfate 325 mg (65 mg iron) tablet 325 mg PO DAILY 11/19/23
magnesium hydroxide 400 mg/5 mL oral suspension (Milk of Magnesia) 30 ml PO DAILY PRN if no bm x 3 days 11/19/23
magnesium oxide 400 mg PO DAILY 11/19/23
sodium phosphates 19 gram-7 gram/118 mL enema (Fleet Enema) 118 ml FL DAILY PRN if dulcolax ineffective 11/19/23
tramadol 50 mg tablet 50 mg PO BID 11/19/23
tramadol 50 mg tablet 50 mg PO Q12H PRN severe pain 11/19/23
Review of Systems
-
A 12 point ROS was completed and negative except as noted: Yes
Constitutional: Denies Fever
Respiratory: Reports Cough (Noted during evaluation); Denies Trouble Breathing
Cardiac: Denies Chest Pain or Palpitations
Abdomen/GI: Reports Diarrhea; Denies Abdominal Pain
Physical Exam
Vital Signs
Vital Signs
Temp Pulse Resp BP Pulse Ox
98.7 F 102 22 125/65 98
11/19/23 20:25 11/19/23 21:15 11/19/23 21:15 11/19/23 21:00 11/19/23 20:45
Physical Exam
General: Comfortable, Conversant and Appears Chronically Ill
HEENT: Other (Blood blister present left buccal mucous. Lower lip with scab and area of crusting)
Respiratory: Clear and Non Labored Respirations
Cardiac: S1/S2, Regular Rhythm and Tachycardia (Slightly)
GI: Soft, Non Tender and Ostomy (Left Lower Quadrant)
Rectal: Deferred by Provider
Musculoskeletal: No Clubbing, No Cyanosis and No Edema
Skin: Warm and Dry
Neuro: Awake, Alert and Nonfocal/grossly intact
Psych: Calm
Laboratory Results
-
11/19/23 20:24
11/19/23 20:24
Laboratory Results
Total Bilirubin 0.5 mg/dl (0.2-1.3) 11/19/23 20:24
AST 18 U/L (14-36) 11/19/23 20:24
ALT 11 U/L (0-35) 11/19/23 20:24
Alkaline Phosphatase 149 U/L (38-126) H 11/19/23 20:24
Data Reviewed
-
Lab Data: Labs Reviewed by me
Old Records: Reviewed
Impression/Plan
-
Pancytopenia, unclear etiology
-Consult Hematology
-Hold methotrexate
-Check iron studies, vitamin b12, folic acid, ldh, haptoglobin and retic count
-Rule out infectious causes with chest x-ray, urinalysis, blood cultures, covid and influenza swabs
-Transfuse one unit platelets and one unit PRBCS
Lower Lip Lesion, concerning for herpes
-Check herpes swab PCR
-Start topical acyclovir
CKD Stage IV
-Creatinine at baseline
COPD, no acute exacerbation
-Continue Anoro Ellipta
Rheumatoid Arthritis
-Methotrexate on hold
Dementia
-Continue donepezil
-Monitor for mood/behavior changes
Anxiety/Depression
-Continue Sertraline, and mirtazapine
Compression Fractures
-Continue lidocaine patch
-Consult PT/OT
DVT proph: SCDs
Code Status: DNR
[2023-11-19 22:17] LABS: Iron 112 ug/dl (37-170); LDH 129 U/L (120-246)
[2023-11-19 22:26] LABS: Percent Saturation 74 % (20-50); Total Iron Binding Capacity 151 ug/dl (265-497)
[2023-11-19 22:51] LABS: COVID-19 Antigen Negative (Negative)
[2023-11-19] MEDS: ZOFRAN 4 MG IV (23:53)
[2023-11-20] VITALS (17 sets, daily range): BP systolic 76–151; BP diastolic 42–78; BMI 13.6; BMI 16.1
[2023-11-20] MEDS: NSS 1000 IV (00:28)
[2023-11-20] MEDS: ARICEPT 10 MG PO ×2 (02:34→22:27)
[2023-11-20] MEDS: MELATONIN 5 MG PO ×2 (02:35→22:26)
[2023-11-20] MEDS: REMERON 15 MG PO ×2 (02:42→22:26)
[2023-11-20 04:13] LABS: Vitamin B12 467 pg/ml (239-931)
[2023-11-20] MEDS: MAGNESIUM OXIDE 500 MG PO (07:34)
[2023-11-20] MEDS: FLORASTOR 250 MG PO (07:34)
[2023-11-20] MEDS: LIDOCAINE 4% PATCH 1 PATCH TOPICAL (07:34)
[2023-11-20] MEDS: ZOLOFT 25 MG PO (07:34)
[2023-11-20] MEDS: ZOVIRAX OINTMENT 5% 1 APPLIC TOPICAL ×5 (07:35→22:50)
[2023-11-20] MEDS: KCL 20 MEQ PO (07:35)
--- NOTE | 2023-11-20 07:36 | CON.ONC ---
Impression
Impression
Severe pancytopenia
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
Plan
Plan
Pancytopenia could be related to a variety of issues including methotrexate although it seems as if the patient has been on the same dose of methotrexate for 3+ years.
It seems as if she was NOT getting too much methotrexate as it was being given at a assisted living with oversight of her medications.
No evidence of pleural effusion seen on chest x-ray.
B12 levels were normal. Check folate and thyroid panel. Check thyroid function. Check parvovirus IgG/IgM. LDH was checked and is normal.
Assuming repeat CBC this morning is not back to normal suggesting lab artifact, neck step is a bone marrow aspirate and biopsy. I will reach out to [phone] to see if I can get approval.
CBC and transfuse for hemoglobin <7 or plt <10,000. Both have already been ordered.
Follow CBC daily. We will follow with you. I have reached out to his daughter Aida and given her an update as well as getting history directly from her.
Patient History
History of Present Illness
Primary Contact
AIDA GAONA
DAUGHTER Rel to Pat
[phone] Cell
History obtained from chart and patient's daughter. Patient is poor historian
CC: Severe pancytopenia
HPI:
Patient is an 82 y/o female with PMH of dementia, failure to thrive, COPD, and nonspecific inflammatory condition follows with Dr. Jorge rheumatology started on methotrexate in May 2020 for inflammation of eyes and tract with hematuria.
She has been on 7.5 mg 3 pills weekly. She resides at the [facility] where her medications are dispensed for her. She has been there for some time. She is referred when laboratory testing revealed severe new onset
pancytopenia. 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 Daughter notes that the patient has been more fatigued for the past week. Daughter notes some easy bruising and nose bleeds, as well as
one episode of vaginal bleeding was noted yesterday at her assisted living facility. Daughter reports prior history of anemia, but no prior history of low platelet or white blood cell count. Patient denies pain, fevers, chills, on night sweats.
Interestingly, the patient had a bone marrow biopsy approximately 5 years ago at [facility] when she was hospitalized and had a significant leukocytosis. Her daughter states that nothing came of that.
Past-Medical/Surgical History
PMH:
Essential Hypertension
CKD Stage IV
COPD
Rheumatoid Arthritis (actually a nonspecific inflammatory condition, follows with Dr. Jorge rheumatology)
Glaucoma
Dementia
Anxiety/Depression
PSH:
Cholecystectomy
Hysterectomy
Colostomy
SH:
Tobacco: Former Smoker
Living: Assisted Living
Family History
Family History: Not pertinent
Allergies / Home Medications
Patient Medication
Medication Instructions Recorded Confirmed Last Taken Type
albuterol sulfate 2.5 mg/3 mL 2.5 mg inhalation R Q4 PRN sob 10/07/23 11/19/23 Unknown History
(0.083 %) solution for nebulization
donepezil 10 mg tablet 10 mg PO HS Neurological Condition 10/07/23 11/19/23 Unknown History
dorzolamide 22.3 mg-timolol 6.8 1 drp BOTH EYES BID Eye Condition 10/07/23 11/19/23 Unknown History
mg/mL eye drops
lactobacillus combination no.4 3 3,000 mmu cells PO DAILY 10/07/23 11/19/23 Unknown History
billion cell capsule (Probiotic)
latanoprost 0.005 % eye drops 1 drp BOTH EYES HS Eye Condition 10/07/23 11/19/23 Unknown History
loperamide 2 mg capsule 2 mg PO Q6H PRN loose stools 10/07/23 11/19/23 Unknown History
methotrexate sodium 2.5 mg tablet 7.5 mg PO SANTIGAO@0800 arthritis 10/07/23 11/19/23 Unknown History
miconazole nitrate 2 % topical 1 applic topical BID PRN labial 10/07/23 11/19/23 Unknown History
cream itchiness
mirtazapine 15 mg tablet 15 mg PO HS Neurological Condition 10/07/23 11/19/23 Unknown History
ondansetron HCl 4 mg tablet 4 mg PO Q8H PRN nausea/vomiting 10/07/23 11/19/23 Unknown History
potassium chloride 20 mEq 20 meq PO DAILY Electrolyte 10/07/23 11/19/23 Unknown History
tablet,extended release(part/cryst) Repletion
sertraline 25 mg tablet 25 mg PO DAILY Mental Health 10/07/23 11/19/23 Unknown History
umeclidinium 62.5 mcg-vilanterol 1 inh inhalation R DAILY 10/07/23 11/19/23 Unknown History
25 mcg/actuation powdr for Lung/Breathing Issues
inhalation (Anoro Ellipta)
lidocaine 4 % topical patch 1 patch topical DAILY #10 ea 10/19/23 11/19/23 Unknown Rx
melatonin 5 mg tablet 5 mg PO HS #20 tabs 10/19/23 11/19/23 Unknown Rx
Saccharomyces boulardii 250 mg 250 mg PO DAILY 11/19/23 11/19/23 Unknown History
capsule (Probiotic (S.boulardii))
acetaminophen 325 mg tablet 650 mg PO Q6H PRN mild 11/19/23 11/19/23 Unknown History
pain/temp>100
bisacodyl 10 mg rectal suppository 10 mg MT DAILY PRN if mom 11/19/23 11/19/23 Unknown History
(Dulcolax (bisacodyl)) ineffective
cephalexin 500 mg capsule 500 mg PO BID 11/19/23 11/19/23 Unknown History
ferrous sulfate 325 mg (65 mg 325 mg PO DAILY 11/19/23 11/19/23 Unknown History
iron) tablet
magnesium hydroxide 400 mg/5 mL 30 ml PO DAILY PRN if no bm x 3 11/19/23 11/19/23 Unknown History
oral suspension (Milk of Magnesia) days
magnesium oxide 400 mg PO DAILY 11/19/23 11/19/23 Unknown History
sodium phosphates 19 gram-7 118 ml MT DAILY PRN if dulcolax 11/19/23 11/19/23 Unknown History
gram/118 mL enema (Fleet Enema) ineffective
tramadol 50 mg tablet 50 mg PO BID 11/19/23 11/19/23 Unknown History
tramadol 50 mg tablet 50 mg PO Q12H PRN severe pain 11/19/23 11/19/23 Unknown History
Active Medications
Generic Name Dose Route Start Last Admin
Trade Name Freq PRN Reason Stop Dose Admin
Acetaminophen 650 mg 11/20/23 01:26
Acetaminophen 325 Mg Tablet PO 12/18/23 01:25
Q6H PRN
mild pain/temp>100
Acyclovir Sodium 0 applic 11/20/23 08:00
Acyclovir 5% (Ointment) 15 Gram Tube TOPICAL 11/30/23 07:59
5/D ANNITA
Donepezil HCl 10 mg 11/20/23 01:26 11/20/23 02:34
Donepezil Hcl 10 Mg Tablet PO 12/18/23 01:25 10 mg
HS ANNITA Administration
Sodium Chloride 1,000 mls @ 50 mls/hr 11/19/23 23:45 11/20/23 00:28
Nss IV 1,000 mls
.Q20H ANNITA Administration
Lidocaine 1 patch 11/20/23 08:00
Lidocaine 4% Topical Patch TOPICAL 12/18/23 07:59
DAILY ANNITA
Magnesium Oxide 500 mg 11/20/23 08:00
Magnesium Oxide 500 Mg Tablet PO 12/18/23 07:59
DAILY ANNITA
Melatonin 5 mg 11/20/23 01:26 11/20/23 02:35
Melatonin 5 Mg Tablet PO 12/18/23 01:25 5 mg
HS ANNITA Administration
Mirtazapine 15 mg 11/20/23 01:26 11/20/23 02:42
Mirtazapine 15 Mg Regular Release Tablet PO 12/18/23 01:25 15 mg
HS ANNITA Administration
Olodaterol 2 puff 11/20/23 08:00
Olodaterol (Striverdi Respimat) 2.5 Mcg Inhaler INH 12/18/23 07:59
R DAILY ANNITA
Patch Removal 1 patch 11/20/23 20:00
Remove Lidocaine Patch REMOVE 12/18/23 19:59
DAILY@2000 ANNITA
Potassium Chloride 20 meq 11/20/23 08:00
Potassium Chloride 20 Meq Extended Release Tablet PO 12/18/23 07:59
DAILY ANNITA
Saccharomyces Boulardii 250 mg 11/20/23 08:00
Saccharomyces Boulardi (Florastor) 250 Mg Capsule PO 12/18/23 07:59
DAILY ANNITA
Sertraline HCl 25 mg 11/20/23 08:00
Sertraline 25 Mg Tablet PO 12/18/23 07:59
DAILY ANNITA
Sodium Chloride 0 flush 11/19/23 23:00
Sodium Chloride 0.9% (Flush) Syringe IV 12/17/23 22:59
PER PROTOCOL ANNITA
Tiotropium [place] 2 puff 11/20/23 08:00
Tiotropium (Spiriva Respimat) 2.5 Mcg Inhaler INH 12/18/23 07:59
R DAILY ANNITA
Tramadol HCl 50 mg 11/20/23 01:26
Tramadol Hcl 50 Mg Tablet PO 12/18/23 01:25
Q12H PRN
severe pain
Physical Exam
-
General: Comfortable and Cachetic
HEENT: Negative Jaundice
Cardiology: S1 and S2
Pulmonary: Clear
GI: Soft
Neurology: Other (generalized confusion from dementia)
Psych: Calm
Labs
Lab Results
WBC 0.8 10^3/uL (4.8-10.8) L* 11/19/23 20:24
RBC 1.87 10^6/uL (4.20-5.40) L 11/19/23:
Hgb 6.9 g/dL (12.0-16.0) L* 11/19/23 20:
Hct 19.4 % (37.0-47.0) L* 11/19/23:
MCV 103.7 fL (81.0-99.0) H 11/19/23:
MCH 36.9 pg (27.0-31.0) H 11/19/23:
MCHC 35.6 g/dL (33.0-37.0) 11/19/23:
RDW 12.8 % (11.5-14.5) 11/19/23:
Plt Count 6 10^3/uL (130-400) L* 11/19/23:
MPV 10.9 fL (7.4-10.4) H 11/19/23:
Abs Immat Gran (auto) 0.0 10^3/uL (0-0.05) 11/19/23:
Absolute Neuts (auto) 0.0 10^3/uL (1.4-6.5) L* 11/19/23:
Absolute Lymphs (auto) 0.7 10^3/uL (1.2-3.4) L 11/19/23:
Absolute Monos (auto) 0.0 10^3/uL (0.1-0.6) L 11/19/23:
Absolute Eos (auto) 0.1 10^3/uL (0-0.7) 11/19/23:
Absolute Basos (auto) 0.0 10^3/uL (0-0.2) 11/19/23:
Immature Gran % 0.0 % (0-0.5) 11/19/23:
Neutrophils % 3.7 % (42.2-75.2) L 03/05/24 20:24
Lymphocytes % 82.5 % (20.5-51.1) H 11/19/23 20:24
Monocytes % 0.0 % (1.7-9.3) L 11/19/23 20:24
Eosinophils % 13.8 % (0-6) H 11/19/23 20:24
Basophils % 0.0 % (0-2) 11/19/23 20:24
Creatinine 1.6 mg/dL (0.6-1.0) H 11/19/23 20:24
Vital Signs
Vital Signs
Temp Pulse Resp BP Pulse Ox
97.9 F 83 16 117/64 97
11/20/23 07:30 11/20/23 07:30 11/20/23 07:30 11/20/23 07:30 11/20/23 07:30
--- NOTE | 2023-11-20 07:47 | PTCARENOTE ---
Assumed care at 0700. Received w/ blood infusing, and now at this time infusion complete. No signs/symptoms of reaction. Patient oriented to self and birthday, forgetful to place, time. Complains of feeling generally unwell, but no specific
complaints. Repositioned in bed for comfort.
--- NOTE | 2023-11-20 08:07 | W.PN.HOSP.TC ---
Today's Communication/Plan
-
transfer to IMU
protonix gtt
IV folate supplementation
transfuse for goal Hgb>7.5 Plt>20 given concern GI bleed
Topical Acyclovir
Magic Mouthwash
Assessment / Plan
Assessment / Plan
Physical Exam
General: Appears Chronically Ill mild distress
HEENT: Blood blister present left buccal mucous. Lower lip with scab and area of crusting
Respiratory: Clear and Non Labored Respirations
Cardiac: S1/S2, Regular Rhythm
GI: Soft, Non Tender and Ostomy Left Lower Quadrant dark liquid stools noted
Musculoskeletal: No Clubbing, No Cyanosis and No Edema
Skin: Warm and Dry
Neuro: Lethargic arousable confused
Psych: Calm
Pancytopenia
Neutropenia
Folate deficiency likely contributing but unclear how much can be attributed to patient's current level of deficiency
Anemia of Chronic Disease
-Neutropenic Precautions
-Consult Hematology appreciated
-Hold methotrexate
-iron studies appreciated iron level wnl but low TIBC likely AOCD
-vitamin b12 wnl
-folic acid deficient, IV supplementation started 11/19
-LDH wnl, haptoglobin pending, and retic count low
-Transfused one unit platelets and one unit PRBCS on admissoin, platelets however remain low though Hgb responded well
Possible GIB, dark stools in ostomy, nurse noted episode bright red blood per rectum gelatinous
-transferring to IMU for closer monitoring 11/19
-protonix gtt
-transfusing for goal Hgb>7.5 Plt>20 given concern bleeding
-CRS and GI evals requested
Lower Lip Lesion, concerning for herpes vs mucormycosis vs Folate deficiency
-Follow herpes swab PCR
-ID eval appreciated cont topical acyclovir, hold probiotics iron supplementation
-ENT eval appreciated, cont magic mouthwash
-IV folate supplementation as above
CKD Stage III
-Creatinine appears stable at this time
-will cont to monitor
-cont gentle IV hydration while oral intake/feeding is low
COPD, no acute exacerbation
-Continue Anoro Ellipta
Rheumatoid Arthritis
-Methotrexate on hold
Dementia
-Continue donepezil
-Monitor for mood/behavior changes
Anxiety/Depression
-Continue Sertraline, and mirtazapine
Compression Fractures
-Continue lidocaine patch
-Consult PT/OT
DVT proph: SCDs
Code Status: DNR
discussed with patient's daughter Giovana
I spent a total of 60 minutes with the patient or on the floor. More than 50% of this time involved counseling and coordination of care.
Anticipated Discharge: > 48 hours
Subjective/Interval History
-
Date of Service: November 20, 2023
Seen and examined at bedside mild distress confused. Vital signs stable. Daughter Giovana present during evaluation. Dark liquid stools noted in ostomy bag. Nurse also noted episode of gelatinous red blood per rectum small cupful.
Objective Data
-
Labs:
Laboratory Results
24 /03/09
20:24 06:00
WBC 0.8 L* Pending
Hgb 6.9 L* Pending
Hct 19.4 L* Pending
Plt Count 6 L* Pending
PT Pending
INR Pending
APTT Pending
Sodium 132 L Pending
Potassium 4.1 Pending
Chloride 103 Pending
Carbon Dioxide 24 Pending
BUN 46 H Pending
Creatinine 1.6 H Pending
Glucose 120 H Pending
Calcium 9.6 Pending
Total Bilirubin 0.5
AST 18
ALT 11
Alkaline Phosphatase 149 H
Vital Signs:
Vital Signs
Temp Pulse Resp BP Pulse Ox
98.5 F 81 24 112/67 97
11/20/23 07:46 11/20/23 07:46 11/20/23 07:46 11/20/23 07:46 11/20/23 07:30
I&O
11/19/23 11/20/23 11/21/23
06:59 06:59 06:59
Intake Total 365 / 365 250 / 250
Balance 365 / 365 250 / 250
[2023-11-20] MEDS: SPIRIVA RESPIMAT 2.5 MCG 2 PUFF INH (08:11)
[2023-11-20] MEDS: STRIVERDI RESPIMAT 2 PUFF INH (08:12)
[2023-11-20 09:41] LABS: INR 1.17
[2023-11-20 09:42] LABS: APTT 37.4 Sec (23.4-35.0)
[2023-11-20 10:06] LABS: Blood Urea Nitrogen 46 mg/dl (7-17); Calcium 9.4 mg/dl (8.4-10.2); Carbon Dioxide 21 mmol/L (22-30); Chloride 105 mmol/L (98-107); Estimated Creatinine Clearance 16 ml/min; Glucose 100 mg/dl (70-99); LDH 145 U/L (120-246); Sodium 134 mmol/L (135-145); Uric Acid 4.2 mg/dl (2.5-6.2)
[2023-11-20 10:28] LABS: Potassium 3.8 mmol/L (3.5-5.1)
--- NOTE | 2023-11-20 10:29 | CON.ID ---
Addendum entered and electronically signed by Suzi Franco MD 11/20/23 14:35:
Cachexia - BMI 14 - very concerning
Original Note:
Consultation
-
Date/Time Consultation Requested: 11/20/23 1:26
Date/Time Consultation Performed: 11/20/23 10:30
Requesting Provider: Scooby
Performing Provider: Dr Franco
Reason for Consultation: neutropenia, necrotic facial lesion
Chief Complaint / Past History
Chief Complaint
necrotic oral lesion
History of Present Illness
Ms Stoll is an 82 year old female with history of a nonspecified inflammatory condition with 'inflammation of the eyes' for which she is on methotrexate 7.5 mg 3x weekly since 2019. of note with recent hospitalization for transverse loop
colostomy for rectovaginal fistula. Family reporting fatigue x1 week, swelling of the lower lip progressing to a necrotic lesion which first began with lip swelling over the weekend and then progressed to a necrotic lesion inolving both the left
and right sides of the lower lip. Reports no history of cold sores throughout her life that she can recall. She does have a developing ulcer within the R internal cheak as well. Had shingles a few years ago. Also easy bruising and nose bleeds.
She was found to be pancytopenic and referred here for further evaluation She was on iron 325 prior to arrival. No steroids. She is not known to be a diabetic. Last labs on file prior to this was 10/19/23 (4 weekss ago) and patient was anemic but
not pancytopenic. No CBC from the last 4 weeks at lab [facility] on my office's review. Started on keflex the day before arrival for the oral lesion
Since arrival here she has been afebrile, bp stable, wbc 0.8 (from 6.5 last month), hgb 6.9, plt 6 (from 420 last month), CO2 21 today, cr 1.6, a1c pending, iron 112, % iron sat 74%, t bili 0.5, ast 18, alt 11, alk phos 149, HSV1/2 PCR has not yet
been done (requires a specific swab), CXR: no acute cp change, blood cultures no growth to date.
Past History
Additional Past Medical History:
Essential Hypertension
CKD Stage IV
COPD
Rheumatoid Arthritis
Glaucoma
Dementia
Anxiety/Depression
Additional Past Surgical History:
Cholecystectomy
Hysterectomy
Colostomy
Allergy History:
No Known Allergies Allergy (Unverified 10/07/23 09:40)
Medications Reviewed: Yes
Social History
Tobacco: Former Smoker
Alcohol: None
Living: Assisted Living
Family History
Family History: Not Pertinent
Review of Systems
Review of Systems
General: Negative Fever or Chills
All systems: All other systems were reviewed and were negative
Vital Signs
Temp Pulse Resp BP Pulse Ox
98.5 F 84 16 112/67 96
11/20/23 07:46 11/20/23 08:19 11/20/23 08:19 11/20/23 07:46 11/20/23 08:19
Physical Exam
Physical Exam
Constitutional: No Acute Distress and Non-toxic
Head: Other (necrotic lesion across the lower )
Cardiovascular: Regular Rate and S1/S2; Negative Murmur or Rub
Pulmonary: Clear and Symmetric; Negative Wheezes, Rales or Rhonchi
Gastrointestinal: Soft, Non Tender, Non Distended and Normal Bowel Sounds
Skin: Warm and Dry; Negative Rash or Jaundice
Lab / Diagnostic Study Results
11/20/23 09:11
Abs Immat Gran (auto) Cancelled 11/20/23 06:00
Absolute Neuts (auto) Cancelled 11/20/23 06:00
Absolute Lymphs (auto) Cancelled 11/20/23 06:00
Absolute Monos (auto) Cancelled 11/20/23 06:00
Absolute Basos (auto) Cancelled 11/20/23 06:00
Immature Gran % Cancelled 11/20/23 06:00
Neutrophils % Cancelled 11/20/23 06:00
Lymphocytes % Cancelled 11/20/23 06:00
Monocytes % Cancelled 11/20/23 06:00
Eosinophils % Cancelled 11/20/23 06:00
Basophils % Cancelled 11/20/23 06:00
PT 15.0 Sec (11.4-14.6) H 11/20/23 09:11
INR 1.17 11/20/23 09:11
Microbiology Results
Micro:
11/19/23 23:39 Blood Culture - Pending
Blood/Venous
11/19/23 23:39 Blood Culture - Pending
Blood/Venous
11/19/23 22:08 Influenza Types A & B (KIRSTIN) - Final
Nasal Swab Negative for Influenza A & B, NAAT
Negative results must be combined with clinical observations
and patient history.
Nucleic Acid Amplification test (NAAT)performed on the
[employer] platform.
Assessment / Plan
Necrotic Lip Lesion
Profound Neutropenia of unclear cause
Use of Methotrexate for undefined inflammatory disorder
Anemia - on oral iron outpatient
- HSV/VZV PCR of lesion sent out (send out will typically take 5+ days when accounting for shipping); serology would also be a send out, not of use as less definitive and no faster
- mucormycosis also on the differential (though lower, particularly if not progressing) - consulted ENT to consider biopsy for path and culture (path more sensitive than culture)
- agree with stopping methotrexate; oncology assessing for the cause of the pancytopenia/neutropenia
- topical acyclovir as oral valtrex can cause bone marrow suppression in itself
- hold probiotics while neutropenic
- recommend to hold iron supplementation if possible for the moment
- follow clinically
Care Review
Plan reviewed with: Physician (ENT -consult)
[2023-11-20 10:31] LABS: % Eosinophils 7.3 % (0-6); % Lymphocytes 90.2 % (20.5-51.1); % Neutrophils 2.5 % (42.2-75.2); Absolute Eosinophils 0.1 10^3/uL (0-0.7); Absolute Lymphocytes 0.7 10^3/uL (1.2-3.4); Hematocrit 21.7 % (37.0-47.0); Hemoglobin 7.5 g/dL (12.0-16.0); Mean Corp Hgb Conc. 34.6 g/dL (33.0-37.0); Mean Corpuscular Hgb 33.6 pg (27.0-31.0); Mean Corpuscular Volume 97.3 fL (81.0-99.0); Nucleated Red Blood Cells % 0 %; Red Blood Cell Count 2.23 10^6/uL (4.20-5.40); Red Cell Dist. Width 18.2 % (11.5-14.5)
[2023-11-20 10:39] LABS: Platelet Count 4 10^3/uL (130-400); White Blood Cell Count 0.8 10^3/uL (4.8-10.8)
[2023-11-20 10:39] LABS: TSH Reflex To Free T4 1.72 uIU/ml (0.47-4.68)
[2023-11-20 10:51] LABS: Glycohemoglobin (HgbA1c) 5.5 % (4.0-5.6)
[2023-11-20 13:27] LABS: Folate 2.2 ng/ml (2.76-20)
[2023-11-20] MEDS: ULTRAM 50 MG PO (14:04)
--- NOTE | 2023-11-20 16:18 | CM ---
Reviewed chart, met with patient's daughter to obtain information for assessment. Patient's daughter stated that patient is at SNF at [facility] however she stated that she is not holding her bed and spoke with admissions at the [facility] where
patient resides and they feel that they will be able to support her there, especially as patient's daughter is interested in pursuing hospice if attending in agreement. Patient's daughter stated that patient has been totally dependent on staff for
all ADLs and personal care.
Plan: Case management will continue to follow and assist with discharge planning/back to the [facility] on hospice if appropriate.
[2023-11-20 16:51] LABS: Hemoglobin 7.2 g/dL (12.0-16.0)
[2023-11-20 16:55] LABS: Hematocrit 19.9 % (37.0-47.0)
[2023-11-20] MEDS: FOLVITE 50.2000000000000028 MG IV (17:29)
--- NOTE | 2023-11-20 18:18 | W.PN.ENT ---
Today's Communication
-
pt seen at bedside
Impression / Plan
-
oral mucositis in patient with neutropenia/pancytopenia
viral vs methotrexate
continue folic acid/acyclovir
will prescribe magic mouthwash
will follow
Subjective Data
-
asked to see patient for mucositis
has been going on for 1 week
having difficulty taking pos because of pain
Objective Data
-
Vital Signs
Temp Pulse Resp BP Pulse Ox
98.3 F 95 28 108/64 95
11/20/23 18:01 11/20/23 18:01 11/20/23 18:01 11/20/23 18:01 11/20/23 18:01
Intake & Output
11/19/23 11/20/23 11/21/23
06:59 06:59 06:59
Intake:
IV fluids (Total) 500 / 500
IV piggybacks 50 / 50
Blood Product Amount Infused ( 365 / 365 250 / 250
mL)
Packed Rbc Leukoreduced Unit 0 / 0 250 / 250
[id number]
Pathogen Redu Plt Leukored 365 / 365
Unit [id number]
Pathogen Redu Plt Leukored 0 / 0
Unit [id number]
Other:
How many times incontinent 1
SMALL amount urine
How many times incontinent 2
SATURATED amount urine
Lab Results
11/20/23 09:11
PT 15.0 Sec (11.4-14.6) H 11/20/23 09:11
INR 1.17 11/20/23 09:11
APTT 37.4 Sec (23.4-35.0) H 11/20/23 09:11
Calcium 9.4 mg/dl (8.4-10.2) 11/20/23 09:11
Total Bilirubin 0.5 mg/dl (0.2-1.3) 11/19/23 20:24
AST 18 U/L (14-36) 11/19/23 20:24
ALT 11 U/L (0-35) 11/19/23 20:24
Alkaline Phosphatase 149 U/L (38-126) H 11/19/23 20:24
Physical Exam
-
superficial sloughing of lip mucosa
diffuse oral mucositis
Chest: Clear
Respiratory: Clear
Data Reviewed
-
Radiology Results: Report Reviewed
[2023-11-20] MEDS: PROTONIX 100 IV (18:37)
--- NOTE | 2023-11-20 19:24 | CON.MD ---
Consultation - Medical
-
Chief complaint:Mucositis, neutropenia, questionable necrosis of lip
History of present illness: This patient is an 82-year-old woman with a history of dementia and neutropenia. She has been on methotrexate for about 3 years. She has severe neutropenia at this point with a white count of 0.6%. Platelets are
currently 4000. The patient presented with mucositis and dysphagia. I was asked to see the patient because of potential necrosis of her lip. The patient has been started on folic acid and acyclovir. She was able to eat some or ice today but that
was about all she ate. She has been able to take some liquids. She has not had similar problems in the past.
Past medical history:
Current medical problems: Acute kidney injury, anemia, compression fracture of lumbar spine, chronic kidney disease stage IV, dementia, mucositis
Allergies: No known drug allergies
Home medications: Acetaminophen 650 mg p.o. every 6 hours
Albuterol sulfate 2.5 mg p.o. inhaled every 4 hours as needed shortness of breath
Anoro Ellipta 1 inhalation daily
Dulcolax 10 mg ND daily as needed
Keflex 500 mg p.o. twice daily
Donepezil 10 mg p.o. nightly
Dorzolamide�timolol 1 drop both eyes twice daily
Ferrous sulfate 325 mg p.o. daily
Latanoprost 1 drop both eyes nightly
Lidocaine patch #10 daily
Loperamide 2 mg p.o. every 6 hours as needed
Milk of magnesia 30 mL p.o. daily as needed
Magnesium oxide 400 mg p.o. daily
Melatonin 5 mg p.o. nightly
Methotrexate sodium 7.5 mg p.o. 1 day a week
Miconazole nitrate 1 application topically twice daily
Mirtazapine 15 mg p.o. nightly
Ondansetron 4 mg p.o. every 8 hours as needed
Potassium chloride 20 mEq p.o. daily
Probiotic 3000 mm use p.o. daily
Saccharomyces boulardii 250 mg p.o. daily
Sertraline 25 mg p.o. daily
Fleet enema ND daily as needed
Tramadol 50 mg p.o. every 12 hours as needed severe pain
Tramadol 50 mg p.o. twice daily as needed
Hospitalizations: The patient is currently hospitalized for mucositis
Family history: Asked and is noncontributory for this problem
Review of systems: The patient has sores in her mouth. She also has a sore on her lip. She has dysphagia. She denies respiratory distress
Physical examination:
Head: Atraumatic and normocephalic
Eyes: Extraocular movements are intact, pupils are equal and reactive to light
Ears: Clear
Nose: Normal mucosa
Neck: Supple
Mouth: The patient has sloughing of mucosa in her mouth indicating mucositis. The mucosa in the mouth that has sloughed looks white but the mucosa on the lip that has sloughed is dry and looks dark. This does not represent significant necrosis.
Cranial nerves: 2 through 12 are intact
Voice: Normal volume and pitch
Thyroid gland: Normal
Salivary glands: Normal
Impression/plan: This patient is an 82-year-old woman with severe neutropenia who has been taking methotrexate. She presents with mucositis. The dark scabby looking material on the lip does not represent significant necrosis but rather represents
dry mucosa that has sloughed. Given her neutropenia and her use of methotrexate it is likely that the mucositis is related either to the methotrexate or to a viral infection. The patient does not need a biopsy at this time. We will follow the
patient.
--- NOTE | 2023-11-20 20:30 | PTCARENOTE ---
plt transfusion completed. pt with oral temp=99.0 - Tylenol given at this time. see NOV.
pt transport to IMU.
--- NOTE | 2023-11-20 20:36 | CON.CRS ---
Consultation
-
Date/Time Consultation Requested: 11/20/23 @ 16:53
Date/Time Consultation Performed: 11/20/23 @ 20:00
Requesting Provider: Mary Santoyo MD
Performing Provider: Shawn Motley MD
Reason for Consultation: rectal bleeding
Medical History
-
Chief Complaint: Rectal bleeding
History of Present Illness:
82-year-old female known to me after undergoing a trephine colostomy on 10/16/2023 for rectovaginal fistula, who was admitted to the hospital yesterday with pancytopenia of unknown etiology. She was noted to have a small amount of rectal bleeding,
possibly vaginal, and darker output from the ostomy. The patient's daughter is at the bedside and provides some of the history. She states they are very pleased with the colostomy as it has improved her quality life since there is no more drainage
from the vagina. The blood per rectum or vagina was noted earlier today and at the retirement and was small in volume. Labs from earlier today revealed a white count of 0.8 with neutropenia, hemoglobin 7.5 and a platelet count of 4000. She has
been seen in consultation by hematology.
Past Medical History
Past Medical History: COPD, HTN, Renal Failure and Other (Rheumatoid arthritis, glaucoma, dementia, anxiety/depression )
Past Surgical History: Bowel Resection (Colostomy), Cholecystectomy and Gynecological (Hysterectomy)
Social History
Tobacco: Former Smoker
Family History
Family History: Reviewed & Not Pertinent
Allergies / Home Medications
Allergy/AdvReac Type Severity Reaction Status Date / Time
No Known Allergies Allergy Unverified 10/07/23 09:40
Medication Instructions Recorded Confirmed Type
albuterol sulfate 2.5 mg/3 mL 2.5 mg inhalation R Q4 PRN sob 10/07/23 11/19/23 History
(0.083 %) solution for nebulization
donepezil 10 mg tablet 10 mg PO HS Neurological Condition 10/07/23 11/19/23 History
dorzolamide 22.3 mg-timolol 6.8 1 drp BOTH EYES BID Eye Condition 10/07/23 11/19/23 History
mg/mL eye drops
lactobacillus combination no.4 3 3,000 mmu cells PO DAILY 10/07/23 11/19/23 History
billion cell capsule (Probiotic)
latanoprost 0.005 % eye drops 1 drp BOTH EYES HS Eye Condition 10/07/23 11/19/23 History
loperamide 2 mg capsule 2 mg PO Q6H PRN loose stools 10/07/23 11/19/23 History
methotrexate sodium 2.5 mg tablet 7.5 mg PO SANTIAGO@0800 inflammatory 10/07/23 11/19/23 History
condition
miconazole nitrate 2 % topical 1 applic topical BID PRN labial 10/07/23 11/19/23 History
cream itchiness
mirtazapine 15 mg tablet 15 mg PO HS Neurological Condition 10/07/23 11/19/23 History
ondansetron HCl 4 mg tablet 4 mg PO Q8H PRN nausea/vomiting 10/07/23 11/19/23 History
potassium chloride 20 mEq 20 meq PO DAILY Electrolyte 10/07/23 11/19/23 History
tablet,extended release(part/cryst) Repletion
sertraline 25 mg tablet 25 mg PO DAILY Mental Health 10/07/23 11/19/23 History
umeclidinium 62.5 mcg-vilanterol 1 inh inhalation R DAILY 10/07/23 11/19/23 History
25 mcg/actuation powdr for Lung/Breathing Issues
inhalation (Anoro Ellipta)
lidocaine 4 % topical patch 1 patch topical DAILY #10 ea 10/19/23 11/19/23 Rx
melatonin 5 mg tablet 5 mg PO HS #20 tabs 10/19/23 11/19/23 Rx
Saccharomyces boulardii 250 mg 250 mg PO DAILY Probiotic 11/19/23 11/19/23 History
capsule (Probiotic (S.boulardii))
acetaminophen 325 mg tablet 650 mg PO Q6H PRN mild 11/19/23 11/19/23 History
pain/temp>100
bisacodyl 10 mg rectal suppository 10 mg MN DAILY PRN if mom 11/19/23 11/19/23 History
(Dulcolax (bisacodyl)) ineffective
cephalexin 500 mg capsule 500 mg PO BID Infection 11/19/23 11/19/23 History
ferrous sulfate 325 mg (65 mg 325 mg PO DAILY Supplement 11/19/23 11/19/23 History
iron) tablet
magnesium hydroxide 400 mg/5 mL 30 ml PO DAILY PRN if no bm x 3 11/19/23 11/19/23 History
oral suspension (Milk of Magnesia) days
magnesium oxide 400 mg PO DAILY Supplement 11/19/23 11/19/23 History
sodium phosphates 19 gram-7 118 ml MN DAILY PRN if dulcolax 11/19/23 11/19/23 History
gram/118 mL enema (Fleet Enema) ineffective
tramadol 50 mg tablet 50 mg PO BID Pain 11/19/23 11/19/23 History
tramadol 50 mg tablet 50 mg PO Q12H PRN severe pain 11/19/23 11/19/23 History
Review of Systems
-
Unable to obtain full review of systems at this time due to: Dementia
History Source: Patient and Family
A 10 point review of systems was completed, and was negative except as per HPI.
Physical Exam
Vital Signs
Temp 99.0 F 11/20/23 20:10
Pulse 110 11/20/23 20:09
Resp Rate 16 11/20/23 20:09
Blood pressure 151/78 11/20/23 20:09
SaO2 94 11/20/23 18:23
11/19/23 11/20/23 11/21/23
06:59 06:59 06:59
Actual Weight 37.5 kg
Body Mass Index (BMI) 13.8
Lab Results / Allergies
11/20/23 09:11
WBC 0.8 10^3/uL (4.8-10.8) L* 11/20/23 09:56
Hgb 7.2 g/dL (12.0-16.0) L 11/20/23 16:41
Hct 19.9 % (37.0-47.0) L* 11/20/23 16:41
Plt Count 4 10^3/uL (130-400) L* D 11/20/23 09:56
Abs Immat Gran (auto) 0.0 10^3/uL (0-0.05) 11/20/23 09:56
Neutrophils % 2.5 % (42.2-75.2) L 11/20/23 09:56
Allergy/AdvReac Type Severity Reaction Status Date / Time
No Known Allergies Allergy Unverified 10/07/23 09:40
Physical Exam
General: Well Developed, Well Nourished and No Apparent Distress
HEENT: Anicteric
GI: Soft, Non Tender and Other (No gross blood)
Rectal: Deferred by Provider
Data Reviewed
-
Labs: Labs Reviewed by me, Discussed with Nurse, Discussed with Patient and Discussed with Family
Total Time Spent with Patient (in minutes): 44
Assessment / Plan
-
Rectal bleeding (possible vaginal) questionable blood in the ostomy output in a patient with pancytopenia including severe thrombocytopenia.
The plan is for no intervention as the bleeding should resolve if her thrombocytopenia improves. Any procedure carries too much risk. I reviewed this with the patient's daughter will follow as needed.
[2023-11-20] MEDS: TYLENOL 650 MG PO (20:42)
--- NOTE | 2023-11-20 22:42 | PTCARENOTE ---
Rec'd pt as transfer from [facility]. Pt AAOx1, drowsy, but c/o chronic back pain. Protonix gtt intact through R AC IV. Difficulty obtaining accurate BP d/t frail limbs. Most accurate BP with pediatric BP cuff, 101/54 MAP 68. This RN administering blood
transfusion through R FA IV at this time. Pt resting comfortably. VSS. Assessment as documented. Call delgadillo within reach. Bed alarm in place for pt safety.
[2023-11-21] VITALS (37 sets, daily range): BP systolic 87–189; BP diastolic 54–106; PULSE 87; O2SAT 93–94; BMI 16.2
[2023-11-21] MEDS: FIRST-MOUTHWASH BLM SUSPENSION 5 ML PO ×2 (03:47→10:39)
[2023-11-21] MEDS: PROTONIX 100 IV (05:20)
--- NOTE | 2023-11-21 05:53 | PTCARENOTE ---
Pt AAOx2. Both blood and platelet transfusion complete. Pt always c/o pain in her back and mouth. PRN mouthwash provided for mouth sores. Pt c/o being very cold, T-99.5 axillary. Upon assessment, pt was incontinent of urine and passed lg amount of
bloody mucous from the rectum. Hygiene care provided with improvement of symptoms. AM labs obtained, results pending. Call delgadillo placed within reach. Bed alarm in place for patient safety
[2023-11-21 06:17] LABS: % Lymphocytes 83.3 % (20.5-51.1); % Neutrophils 1.7 % (42.2-75.2); Absolute Eosinophils 0.1 10^3/uL (0-0.7); Absolute Lymphocytes 0.5 10^3/uL (1.2-3.4); Mean Corp Hgb Conc. 35.7 g/dL (33.0-37.0); Mean Corpuscular Hgb 33.4 pg (27.0-31.0); Mean Corpuscular Volume 93.6 fL (81.0-99.0); Mean Platelet Volume 9.3 fL (7.4-10.4); Nucleated Red Blood Cells % 0 %; Red Blood Cell Count 2.99 10^6/uL (4.20-5.40)
[2023-11-21 06:28] LABS: Platelet Count 21 10^3/uL (130-400); White Blood Cell Count 0.6 10^3/uL (4.8-10.8)
[2023-11-21 06:38] LABS: Blood Urea Nitrogen 44 mg/dl (7-17); Calcium 9.1 mg/dl (8.4-10.2); Carbon Dioxide 20 mmol/L (22-30); Chloride 105 mmol/L (98-107); Estimated Creatinine Clearance 17 ml/min; Glucose 101 mg/dl (70-99); Magnesium 1.6 mg/dl (1.6-2.3); Phosphorus 4.8 mg/dl (2.5-4.5); Potassium 3.4 mmol/L (3.5-5.1); Sodium 138 mmol/L (135-145); eGFR 37.33
--- NOTE | 2023-11-21 07:15 | W.PN.HOSP.TC ---
Today's Communication/Plan
-
Hospice Eval discussion in AM 11/21, hold off on IR bx pending results of discussion
Empiric abx started for neutropenic fever, blood cultures repeated
Monitor Hgb and plt transfusing for goal Hgb>7 plt>10
IV folate supplementation
Topical Acyclovir
Magic Mouthwash
Assessment / Plan
Assessment / Plan
Physical Exam
General: Appears Chronically Ill mild distress
HEENT: Blood blister present left buccal mucous. Lower lip with scab and area of crusting
Respiratory: Clear and Non Labored Respirations
Cardiac: S1/S2, Regular Rhythm
GI: Soft, Non Tender and Ostomy Left Lower Quadrant dark liquid stools noted
Musculoskeletal: No Clubbing, No Cyanosis and No Edema
Skin: Warm and Dry
Neuro: Awake Alert Conversant
Psych: Calm
Pancytopenia
Neutropenia
Folate deficiency likely contributing but unclear how much can be attributed to patient's current level of deficiency
Anemia of Chronic Disease
-Neutropenic Precautions
-Consult Hematology appreciated transfusing for goal Hgb>7 Plt>10 so far received 2PRBC and 3 single donor Platelets
-Hold methotrexate
-iron studies appreciated iron level wnl but low TIBC likely AOCD
-vitamin b12 wnl
-folic acid deficient, IV supplementation started 11/19
-LDH wnl, haptoglobin pending, and retic count low
Possible GIB, dark stools in ostomy, nurse noted episode bright red blood per rectum gelatinous
-transferred to IMU for closer monitoring 11/19
-initially placed on protonix gtt since transitioned to IV protonix BID as active GI bleeding less likely 11/20
-CRS and GI evals appreciated anticipate improvement if thrombocytopenia improves, but low platelet makes invasive procedures more risky than beneficial at this time
Lower Lip Lesion, concerning for herpes vs mucormycosis vs Folate deficiency
-Follow herpes swab PCR
-ID eval appreciated cont topical acyclovir, hold probiotics iron supplementation
-ENT eval appreciated, cont magic mouthwash
-IV folate supplementation as above
Neutropenic Fever 11/20
-repeating blood cultures
-empiric abx renall dosed vancoymycin zosyn started
CKD Stage III
-Creatinine appears stable at this time
-will cont to monitor
-cont gentle IV hydration while oral intake/feeding is low
COPD, no acute exacerbation
-Continue Anoro Ellipta
Rheumatoid Arthritis
-Methotrexate on hold
Dementia
-Continue donepezil
-Monitor for mood/behavior changes
Anxiety/Depression
-Continue Sertraline, and mirtazapine
Compression Fractures
-Continue lidocaine patch
-Consult PT/OT appreciated SNF rehab
DVT proph: SCDs
Code Status: DNR
Patient approved for bone biopsy tentatively scheduled for tomorrow 11/21 however family/daughter considering hospice, hospice consult requested as per patient's family's wishes.
discussed with patient's daughter Giovana
I spent a total of 60 minutes with the patient or on the floor. More than 50% of this time involved counseling and coordination of care.
Anticipated Discharge: 24 - 48 hours
Subjective/Interval History
-
Date of Service: November 21, 2023
Awake conversant reports mouth pain otherwise appears comfortable at this time. ostomy notes bilious liquid bowel movements, non-bloody/dark.
Objective Data
-
Labs:
Laboratory Results
11/21/23 11/21/23
04:15 05:35
WBC Cancelled 0.6 L*
Hgb Cancelled 10.0 L D
Hct Cancelled 28.0 L
Plt Count Cancelled 21 L* D
Sodium 138
Potassium 3.4 L
Chloride 105
Carbon Dioxide 20 L
BUN 44 H
Creatinine 1.4 H
Glucose 101 H
Calcium 9.1
Vital Signs:
Vital Signs
Temp Pulse Resp BP Pulse Ox
98 F 88 22 123/69 91
11/21/23 04:27 11/21/23 06:01 11/21/23 06:01 11/21/23 06:01 11/21/23 06:01
I&O
11/20/23 11/21/23 11/22/23
06:59 06:59 06:59
Intake Total 365 / 365 2455.5 / 2455.5
Output Total 400 / 400
Balance 365 / 365 5.5 / 2054.5
[2023-11-21] MEDS: STRIVERDI RESPIMAT 2 PUFF INH (08:01)
[2023-11-21] MEDS: SPIRIVA RESPIMAT 2.5 MCG 2 PUFF INH (08:01)
--- NOTE | 2023-11-21 08:45 | W.PN.ID1 ---
Date of Service
Date of Service: November 21, 2023
Today's Communication
lesion stable - continue topical acyclovir
Assessment / Plan
Mucositis
Profound Neutropenia
Pancytopenia
Use of Methotrexate for undefined inflammatory disorder
Cachexia
- HSV/VZV PCR of lesion sent out
- no plans for biopsy at this time, will follow lesion closely
- agree with stopping methotrexate; oncology assessing for the cause of the pancytopenia/neutropenia
- topical acyclovir as oral valtrex can cause bone marrow suppression in itself
- hold probiotics while neutropenic
- follow clinically
Chief Complaint
-: Other (pancytopenia, necrotizing skin lesion)
Subjective / Review of Systems
BMI up to 16 this am
afebrile
bp stable
rectal bleeding overnight
wbc not yet improving
hgb now 10 - had multiple transfusions
plt 21 - post transfusion
ANC remains 0
cr 1.4
Vital Signs / Physical Exam
Vital Signs
Vital Signs
Temp Pulse Resp BP Pulse Ox
98 F 82 16 123/69 95
11/21/23 04:27 11/21/23 08:02 11/21/23 08:02 11/21/23 06:01 11/21/23 08:02
Physical Exam
Constitutional: No Acute Distress and Cachetic
Head: Other (lip lesion unchanged )
Cardiovascular: Regular Rate and S1/S2; Negative Murmur or Rub
Pulmonary: Clear and Symmetric; Negative Wheezes or Rales
Gastrointestinal: Soft, Non Tender, Non Distended and Normal Bowel Sounds
Skin: Warm and Dry; Negative Rash or Jaundice
Objective Data
Lab Data
Lab Results
11/21/23 05:35
11/21/23 05:35
PT 15.0 Sec (11.4-14.6) H 11/20/23 09:11
INR 1.17 11/20/23 09:11
APTT 37.4 Sec (23.4-35.0) H 11/20/23 09:11
Estimated Creat Clear 17 ml/min 11/21/23 05:35
Total Bilirubin 0.5 mg/dl (0.2-1.3) 11/19/23 20:24
AST 18 U/L (14-36) 11/19/23 20:24
ALT 11 U/L (0-35) 11/19/23 20:24
Alkaline Phosphatase 149 U/L (38-126) H 11/19/23 20:24
Most recent labs reviewed.
Micro Results:
11/19/23 23:39 Blood Culture - Preliminary
Blood/Venous No Growth in 24 hours- Final report to follow
11/19/23 23:39 Blood Culture - Preliminary
Blood/Venous No Growth in 24 hours- Final report to follow
11/19/23 22:08 Influenza Types A & B (KIRSTIN) - Final
Nasal Swab Negative for Influenza A & B, NAAT
Negative results must be combined with clinical observations
and patient history.
Nucleic Acid Amplification test (NAAT)performed on the
[employer] NOW platform.
Care Review
Plan reviewed with: Physician
Total Time Spent with Patient (in minutes): Dr Kumar - methotrexate
--- NOTE | 2023-11-21 09:18 | CON.GI ---
Addendum entered and electronically signed by Kaylyn Kumar MD 11/21/23 12:13:
I saw and examined the patient.
The FILM SPLICER's note was reviewed and I agree with the note.
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 She also was
noted to have vaginal versus rectal bleeding and dark output in her colostomy. Admission labs showed severe pancytopenia and since admission she has received 2 units of packed red blood cells and hemoglobin went up from 6.9-10, 3 units of platelets
and platelet count went up from 4000-21,000. she has not had any further bleeding reported
Assessment and plan 1. Small amount of rectal or vaginal bleeding and also dark output in her colostomy, bleeding related to severe thrombocytopenia which should resolve spontaneously once her platelets count come up and she has not had any further
bleeding. hemoglobin improved with 2 units of packed blood cells she also received platelet transfusions. Given her severe pancytopenia not a candidate for any invasive procedures including endoscopic workup which should only be reserved for
life-threatening bleeding at this time.
2. Severe pancytopenia most likely related to methotrexate toxicity it is unclear if she was taking folic acid with her methotrexate as outpatient which might have exacerbated Toxicity and pancytopenia. Workup per hematology she is on folic acid
now and she is scheduled for bone marrow biopsy tomorrow
GI will sign off and will be available as needed
Original Note:
Consultation
-
Date/Time Consultation Requested: 11/20/23 1656
Date/Time Consultation Performed: 11/21/23 0800
Requesting Provider: Dr. Santoyo
Performing Provider: Dr. Kumar/KARY Alvares
Reason for Consultation: dark ostomy output/rectal bleeding
Medical History
Chief Complaint / HPI
Chief Complaint: abnormal labs
History of Present Illness:
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
nursing facility presents to the emergency room with abnormal labs including anemia, leukopenia and thrombocytopenia. There is also been epistaxis, vaginal bleeding and extensive ecchymosis of the skin. The patient cannot give much history but
states that her mouth is very sore. She has multiple ulcers within her mouth and has already been seen by ENT. The patient denies any current GI complaints to me other than mouth soreness. We are asked to evaluate the patient as she had dark
output in her ostomy and possible rectal bleeding. She is already been evaluated by colorectal surgery, infectious disease, hematology and ENT. At the present time the patient denies any nausea, vomiting, abdominal pain, dysphagia. She does have
mouth pain but denies any true odynophagia.
Past Medical History
Past Medical History: Other (Dementia, COPD, RA, rectovaginal fistula, CKD, Anxiety/Depression)
Past Surgical History: Cholecystectomy, Gynecological (hysterectomy) and Other (colostomy (bowel resection))
Social History
Tobacco: Former Smoker
Alcohol: None
Drug: None
Family History
Family History: Other (unable)
Allergies / Home Medications
Allergy/AdvReac Type Severity Reaction Status Date / Time
No Known Allergies Allergy Unverified 10/07/23 09:40
Medication Instructions Recorded
albuterol sulfate 2.5 mg/3 mL 2.5 mg inhalation R Q4 PRN sob 10/07/23
(0.083 %) solution for nebulization
donepezil 10 mg tablet 10 mg PO HS Neurological Condition 10/07/23
dorzolamide 22.3 mg-timolol 6.8 1 drp BOTH EYES BID Eye Condition 10/07/23
mg/mL eye drops
lactobacillus combination no.4 3 3,000 mmu cells PO DAILY 10/07/23
billion cell capsule (Probiotic)
latanoprost 0.005 % eye drops 1 drp BOTH EYES HS Eye Condition 10/07/23
loperamide 2 mg capsule 2 mg PO Q6H PRN loose stools 10/07/23
methotrexate sodium 2.5 mg tablet 7.5 mg PO SANTIAGO@0800 inflammatory 10/07/23
condition
miconazole nitrate 2 % topical 1 applic topical BID PRN labial 10/07/23
cream itchiness
mirtazapine 15 mg tablet 15 mg PO HS Neurological Condition 10/07/23
ondansetron HCl 4 mg tablet 4 mg PO Q8H PRN nausea/vomiting 10/07/23
potassium chloride 20 mEq 20 meq PO DAILY Electrolyte 10/07/23
tablet,extended release(part/cryst) Repletion
sertraline 25 mg tablet 25 mg PO DAILY Mental Health 10/07/23
umeclidinium 62.5 mcg-vilanterol 1 inh inhalation R DAILY 10/07/23
25 mcg/actuation powdr for Lung/Breathing Issues
inhalation (Anoro Ellipta)
lidocaine 4 % topical patch 1 patch topical DAILY #10 ea 10/19/23
melatonin 5 mg tablet 5 mg PO HS #20 tabs 10/19/23
Saccharomyces boulardii 250 mg 250 mg PO DAILY Probiotic 11/19/23
capsule (Probiotic (S.boulardii))
acetaminophen 325 mg tablet 650 mg PO Q6H PRN mild 11/19/23
pain/temp>100
bisacodyl 10 mg rectal suppository 10 mg AR DAILY PRN if mom 11/19/23
(Dulcolax (bisacodyl)) ineffective
cephalexin 500 mg capsule 500 mg PO BID Infection 11/19/23
ferrous sulfate 325 mg (65 mg 325 mg PO DAILY Supplement 11/19/23
iron) tablet
magnesium hydroxide 400 mg/5 mL 30 ml PO DAILY PRN if no bm x 3 11/19/23
oral suspension (Milk of Magnesia) days
magnesium oxide 400 mg PO DAILY Supplement 11/19/23
sodium phosphates 19 gram-7 118 ml AR DAILY PRN if dulcolax 11/19/23
gram/118 mL enema (Fleet Enema) ineffective
tramadol 50 mg tablet 50 mg PO BID Pain 11/19/23
tramadol 50 mg tablet 50 mg PO Q12H PRN severe pain 11/19/23
Review of Systems
-
Unable to obtain full review of systems at this time due to: Dementia
All other systems: A 12 pt ROS was Negative except as stated above in HPI
Vital Signs
Temp Pulse Resp BP Pulse Ox
98 F 82 16 123/69 95
11/21/23 04:27 11/21/23 08:02 11/21/23 08:02 11/21/23 06:01 11/21/23 08:02
Physical Exam
Exam
General: Other (appears ill, fatigued)
HEENT: Anicteric and Other (mouth dry, upper lip ulceration)
Respiratory: Clear (anterior, RR 28)
Cardiac: Regular Rhythm
GI: Soft, Non Tender, Non Distended, Normal Bowel Sounds and Other (brown stool in ostomy)
Musculoskeletal: No Edema
Skin: Other (multiple areas of ecchymosis over arms)
Neuro: Awake
Psych: Calm
Results
WBC 0.6 10^3/uL (4.8-10.8) L* 11/21/23 05:35
Hgb 10.0 g/dL (12.0-16.0) L D 11/21/23 05:35
Hct 28.0 % (37.0-47.0) L 11/21/23 05:35
MCV 93.6 fL (81.0-99.0) 11/21/23 05:35
Plt Count 21 10^3/uL (130-400) L* D 11/21/23 05:35
Absolute Neuts (auto) 0.0 10^3/uL (1.4-6.5) L* 11/21/23 05:35
PT 15.0 Sec (11.4-14.6) H 11/20/23 09:11
INR 1.17 11/20/23 09:11
APTT 37.4 Sec (23.4-35.0) H 11/20/23 09:11
Sodium 138 mmol/L (135-145) 11/21/23 05:35
Potassium 3.4 mmol/L (3.5-5.1) L 11/21/23 05:35
Chloride 105 mmol/L (98-107) 11/21/23 05:35
Carbon Dioxide 20 mmol/L (22-30) L 11/21/23 05:35
BUN 44 mg/dl (7-17) H 11/21/23 05:35
Creatinine 1.4 mg/dL (0.6-1.0) H 11/21/23 05:35
Calcium 9.1 mg/dl (8.4-10.2) 11/21/23 05:35
Total Bilirubin 0.5 mg/dl (0.2-1.3) 11/19/23 20:24
AST 18 U/L (14-36) 11/19/23 20:24
ALT 11 U/L (0-35) 11/19/23 20:24
Alkaline Phosphatase 149 U/L (38-126) H 11/19/23 20:24
Diagnostic Image Results:
CXR:
IMPRESSION:
No acute cardiopulmonary process.
CT Abd/Pelvis without contrast 10/07/23: (prior admission)
IMPRESSION: Moderate L1 and L4 age indeterminate compression fractures.
Less than 1 mm nonobstructing right renal stone.
Large right parapelvic renal cyst.
Moderate intrahepatic dilatation. Poor visualization of the gallbladder. Findings related to previous cholecystectomy cannot be excluded. Clinical and laboratory correlation recommended. This would better be evaluated by abdominal ultrasound.
Mild diverticulosis.
Moderate emphysematous disease.
Electronically signed by Kalpana Anderson DO 10/07/2023 11:41 AM
Prior GI Procedures:
EGD: unable
Colonoscopy: unable
Assessment / Plan
-
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
nursing facility presents to the emergency room with abnormal labs including anemia, leukopenia and thrombocytopenia. Been asked to evaluate for dark stool in her ostomy as well as possible rectal bleeding. The patient has been seen by colorectal
surgery. Also by ENT, hematology and infectious disease. The patient has had epistaxis, upper lip ulceration, recent transverse loop colostomy on 10/16/2023 and currently presents with new abnormal labs with a significant pancytopenia. White count
is 0.6, hemoglobin was initially 6.9 and now is 10. Platelet count was 4. Normal LFTs. Folate significantly low at 2.2. Patient with brown stool in ostomy. Complaint of pain in her mouth. She complains of no dysphagia or odynophagia to me at the
present time however is a poor historian.
Impression:
Pancytopenia
Rectal vs Vaginal bleeding in setting of PLT of 4.
Questionable blood in ostomy
Plan:
-Patient not candidate for any endoscopic intervention given severe thrombocytopenia
-As per IM/Hematology/ID/ENT/CRS
-Brown stool in ostomy
-Patient already on Pantoprazole 40 mg IV BID.
-
-
Thank you for consultation and allowing me to participate in the patient's care. Please call the industrial relations specialist GI physician during the after hours with any questions or concerns.
[2023-11-21] MEDS: ZOLOFT 25 MG PO (09:20)
[2023-11-21] MEDS: LIDOCAINE 4% PATCH 1 PATCH TOPICAL (09:20)
[2023-11-21] MEDS: MAGNESIUM OXIDE 500 MG PO (09:20)
[2023-11-21] MEDS: KCL 20 MEQ PO (09:20)
[2023-11-21] MEDS: NSS 1000 IV ×2 (09:21→15:51)
[2023-11-21] MEDS: ZOVIRAX OINTMENT 5% 1 APPLIC TOPICAL ×5 (09:21→20:06)
[2023-11-21] MEDS: KCL ELIXIR 40 MEQ PO (10:39)
[2023-11-21] MEDS: NSS (PRESERVATIVE FREE) 10 ML IV ×2 (10:40→20:05)
[2023-11-21] MEDS: PROTONIX IV 40 MG IV ×2 (10:40→20:06)
[2023-11-21] MEDS: MAGNESIUM SULFATE 50 IV (10:40)
--- NOTE | 2023-11-21 10:58 | PTCARENOTE ---
Rec'd pt this AM. Pt with mucoid blood from rectum this AM. AAO x3. repositioned for comfort. Pt now resting.
--- NOTE | 2023-11-21 11:26 | W.PN.ONC ---
Addendum entered and electronically signed by Babar Valdez DO 11/21/23 13:39:
Chart reviewed and patient examined independently. Agree with collected history, physical exam, impression and plan as outlined TREATING PLANT PUMPER. Await results of inpatient bone marrow biopsy to ascertain role for additional intervention other than
transfusion support.
Original Note:
Today's Communication / Plan
-
Multifactorial Pancytopenia: variety of issues including methotrexate although it seems as if the patient has been on the same dose of methotrexate for 3+ years.
Continue strict neutropenic precautions: ANC 0
3/7 Hgb 10, PLT 21
Bleeding precautions
s/p 2units PRBCs, 3units PLTs
Transfuse as needed to maintain Hgb >7, PLT >10
Follow CBC w/ diff daily
Continue folic acid repletion
Viral panel remains pending
Inpatient bone marrow biopsy has been approved and is planned for tomorrow, 11/21, in [facility]
We will follow. Await BM bx.
Impression
Impression
Severe multifactorial pancytopenia
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
Folate deficiency
Hyperphosphatemia
Hx dementia
Subjective/Objective
Subjective/Objective
Vital Signs:
Vital Signs
Temp Pulse Resp BP Pulse Ox
97.8 F 82 16 123/69 95
11/21/23 11:18 11/21/23 08:02 11/21/23 08:02 11/21/23 06:01 11/21/23 08:02
physical exam unchanged.
Lab Results:
Laboratory Data
WBC 0.6 10^3/uL (4.8-10.8) L* 11/21/23 05:35
Hgb 10.0 g/dL (12.0-16.0) L D 11/21/23 05:35
Plt Count 21 10^3/uL (130-400) L* D 11/21/23 05:35
PT 15.0 Sec (11.4-14.6) H 11/20/23 09:11
INR 1.17 11/20/23 09:11
APTT 37.4 Sec (23.4-35.0) H 11/20/23 09:11
eGFR 37.33 11/21/23 05:35
11/20/23: CXR No acute cardiopulmonary process.
[2023-11-21 12:47] LABS: Hematocrit 25.9 % (37.0-47.0); Mean Corp Hgb Conc. 34.7 g/dL (33.0-37.0); Mean Corpuscular Hgb 32.8 pg (27.0-31.0); Mean Corpuscular Volume 94.5 fL (81.0-99.0); Platelet Count 6 10^3/uL (130-400); Red Blood Cell Count 2.74 10^6/uL (4.20-5.40); Red Cell Dist. Width 19.5 % (11.5-14.5)
[2023-11-21 12:55] LABS: White Blood Cell Count 0.4 10^3/uL (4.8-10.8)
[2023-11-21] MEDS: VITAMIN B-12 1000 MCG PO (13:49)
--- NOTE | 2023-11-21 14:05 | PN.CDI ---
CDI
- -
CDI:
Physician Documentation Request
Admit Date: 11/19/23 22:07
Dear Doctor Yarelis,
Patient presented to ED. Exam at that time describes pt as ' Cachectic. Thin.'
11/19 RD notes states 'consult pt with weight loss. During visit RD observed severe fat loss over triceps, temporal wasting, apparent ribs, orbits are sunken in, severe protrusion of clavical. With observed muscle and fat wasting pt meets AND/ASPEN
criteria for severe protein calorie malnutrition of chronic illness.'
BMI 11/19 16.1
Ht: 4 ft 11 inches
Wt: 11/19 79 lbs.
Based on the information, which of the following most accurately represents the patient's nutritional status?
Malnutrition (specify if mild, moderate or severe)
Cachexia without malnutrition
Underweight without malnutrition
No nutritional deficiency
Other (please specify)
[place] Criteria (ACP Hospitalist 2017)
2 or more criteria must be present for either
non severe or severe malnutrition
Note that the criteria differs related to the
presence of an acute or chronic illness
Acute Illness Chronic Illness
Energy Intake Non Severe: <75% for >7 days Non Severe: <75% for >1 month
Severe: <50% for >5 days Severe: <75% for >1 month
Weight Loss Non Severe: 1-2% over 1 week Non Severe: 5% over 1 month
5% over 1 month 7.5% over 3 months
7.5% over 3 months 10% over 6 months
1 year N/A 20% over 1 year
Severe: >2% over 1 week Severe: >5% over 1 month
>5% over 1 month >7.5% over 3 months
>7.5% over 3 months >10% over 6 months
1 year N/A >20% over 1 year
Body Fat Non Severe: Mild Decrease Non Severe: Mild Loss
Severe: Moderate Decrease Severe: Severe Loss
Muscle Mass Non Severe: Mild Decrease Non Severe: Mild Loss
Severe: Moderate Decrease Severe: Severe Loss
Fluid Accumulation Non Severe: Mild Accumulation Non Severe: Mild Accumulation
Severe: Moderate to severe Severe: Moderate to severe
accumulation accumulation
Reduced Desk Pens Assembler Strength Non Severe: N/A Non Severe: N/A
Severe: Measurably reduced Severe: Measurably reduced
Additional criteria that can be used to Determine if Mild or Moderate Malnutrition (Merck Manual 2018)
Mild Moderate Severe
Albumin gm/dl <3.0 gm/dl <2.5 gm/dl <2.0 gm/dl
Pre Albumin mg/dl <15 gm/dl <10 mg/dl <5.0 mg/dl
BMI <18.5 <17 <16
Use of terms such as suspected, likely, concern for, or probable (associated with a specific diagnosis that is being evaluated, monitored, or treated as if it exists) are acceptable and can be coded in the inpatient setting, when documented at the
time of discharge.
Thank you,
Juhi Pate RN, BSN
CDI Specialist
tiger text
Please use your independent medical judgment in providing your response.
[2023-11-21] MEDS: ULTRAM 50 MG PO (15:11)
--- NOTE | 2023-11-21 16:56 | PTCARENOTE ---
Long goals of care discussion with family at bedside. Daughter requesting hospice consult as she feels that her mother's condition is rapidly deteriorating and efforts appear futile. Unsure if she wished to procede with the bone marrow biopsy in
[facility] tomorrow but will think about it. Updated Dr. Santoyo who placed hospice consult
[2023-11-21] MEDS: FOLVITE 50.2000000000000028 MG IV (17:22)
[2023-11-21] MEDS: ARICEPT 10 MG PO (20:05)
[2023-11-21] MEDS: TYLENOL 650 MG PO (20:05)
[2023-11-21] MEDS: REMERON 15 MG PO (20:05)
[2023-11-21] MEDS: MELATONIN 5 MG PO (20:05)
--- NOTE | 2023-11-21 20:20 | PHA.VAN.IN ---
Assessment
- Assessment
Renal Function: Appears similar to baseline
Maximum Temperature: 101.8 F oral 11/20 @ 1952
Concomitant Antimicrobials: piperacillin/tazobactam
Plan
- Plan
Initial / Loading Dose: vanc 1000mg pending administration
Maintenance Regimen: dosing by level
Monitoring: random level 11/21 599
Pharmacokinetics Vancomycin I
- -
Patient Age: 82
Patient Sex: Female
Vancomycin Day #: 1
Indication: Neutropenic Fever
Requesting Provider: Dr. Santoyo
Pertinent Antimicrobial Allergies:
no pertinent antimicrobial allergies
Height / Weight:
Height 4 ft 11 in
Actual Weight 36.3 kg
IBW in k.2
Pertinent Past Medical History: rheumatoid arthritis on methotrexate, BMI ~16
- Vital Signs / Lab Results
Temp Pulse Resp BP Pulse Ox
101.8 F H 102 21 107/63 93
11/21/23 19:52 11/21/23 18:00 11/21/23 18:00 11/21/23 18:00 11/21/23 18:00
Lab Results - Hematology
11/19/23 11/20/23 11/20/23
06:00 09:56
WBC 0.8 L* Cancelled 0.8 L*
11/21/23 11/21/23 11/21/23
04:15 05:35 12:31
WBC Cancelled 0.6 L* 0.4 L*
Lab Results - Chemistry
11/19/23 11/20/23 11/21/23
20:24 09:11 05:35
BUN 46 H 46 H 44 H
Creatinine 1.6 H 1.6 H 1.4 H
Estimated Creat Clear 16 16 17
Albumin 2.8 L
Microbiology Results
11/19/23 23:39 Blood Culture - Preliminary
Blood/Venous No Growth in 24 hours- Final report to follow
11/19/23 23:39 Blood Culture - Preliminary
Blood/Venous No Growth in 24 hours- Final report to follow
11/19/23 22:08 Influenza Types A & B (KIRSTIN) - Final
Nasal Swab Negative for Influenza A & B, NAAT
Negative results must be combined with clinical observations
and patient history.
Nucleic Acid Amplification test (NAAT)performed on the
[employer] platform.
--- NOTE | 2023-11-21 20:54 | PTCARENOTE ---
Addendum entered by Robert Anne RN 11/21/23 23:57:
IV leaking after BC drawn. New IV placed by IV team. Abx therapy initiated.
Addendum entered by Robert Anne RN 11/21/23 21:08:
15 min check- pt tolerating platelets. no complaints at this time. VSS. Call delgadillo within reach.
Original Note:
Patient febrile 101.8. Pt had multiple heavy blankets on which were removed. Medicated with po Tylenol. Orders received from provider for blood cultures and abx; confirmed this workup with ordering provider.
Notified by blood blank platelets are ready.
Platelets started immediately. Plan to draw cultures and repeat lab work 1 hour after platelets are finished.
[2023-11-21 22:50] LABS: Hematocrit 23.4 % (37.0-47.0); Hemoglobin 8.5 g/dL (12.0-16.0); Mean Corp Hgb Conc. 36.3 g/dL (33.0-37.0); Mean Corpuscular Hgb 33.3 pg (27.0-31.0); Mean Corpuscular Volume 91.8 fL (81.0-99.0); Mean Platelet Volume 12.8 fL (7.4-10.4); Red Blood Cell Count 2.55 10^6/uL (4.20-5.40); Red Cell Dist. Width 19.1 % (11.5-14.5)
[2023-11-21 22:56] LABS: Platelet Count 14 10^3/uL (130-400); White Blood Cell Count 0.4 10^3/uL (4.8-10.8)
[2023-11-21] MEDS: ZOSYN 50 IV (23:37)
[2023-11-22] VITALS (8 sets, daily range): BP systolic 106–151; BP diastolic 53–79; BMI 16.9
[2023-11-22] MEDS: VANCOCIN 200 IV (00:15)
[2023-11-22 05:13] LABS: % Lymphocytes 64.9 % (20.5-51.1); % Monocytes 2.7 % (1.7-9.3); % Neutrophils 5.4 % (42.2-75.2); Absolute Eosinophils 0.1 10^3/uL (0-0.7); Absolute Lymphocytes 0.2 10^3/uL (1.2-3.4); Hemoglobin 7.3 g/dL (12.0-16.0); Mean Corpuscular Hgb 33.3 pg (27.0-31.0); Mean Corpuscular Volume 92.7 fL (81.0-99.0); Nucleated Red Blood Cells % 0 %; Red Blood Cell Count 2.19 10^6/uL (4.20-5.40); Red Cell Dist. Width 18.7 % (11.5-14.5)
[2023-11-22 05:22] LABS: Hematocrit 20.3 % (37.0-47.0); Platelet Count 3 10^3/uL (130-400); White Blood Cell Count 0.4 10^3/uL (4.8-10.8)
[2023-11-22 05:27] LABS: Vancomycin Random 15.4 ug/ml
--- NOTE | 2023-11-22 05:34 | PTCARENOTE ---
Critical labs reported to AVINASH Abdi; ordered 2 units of platelets. Per blood bank it will take 6-8 hours for platelets to arrive from [place].
[2023-11-22 05:35] LABS: Blood Urea Nitrogen 34 mg/dl (7-17); Calcium 8.3 mg/dl (8.4-10.2); Carbon Dioxide 21 mmol/L (22-30); Chloride 107 mmol/L (98-107); Estimated Creatinine Clearance 21 ml/min; Glucose 87 mg/dl (70-99); Magnesium 1.9 mg/dl (1.6-2.3); Phosphorus 3.5 mg/dl (2.5-4.5); Potassium 3.3 mmol/L (3.5-5.1); Sodium 135 mmol/L (135-145); eGFR 44.91
[2023-11-22 05:40] LABS: PT 18.2 Sec (11.4-14.6)
[2023-11-22] MEDS: ZOSYN 50 IV (06:30)
--- NOTE | 2023-11-22 07:15 | W.PN.HOSP.TC ---
Addendum entered and electronically signed by Mary Santoyo MD 11/23/23 08:10:
severe protein calorie malnutrition of chronic illness
Addendum entered and electronically signed by Mary Santoyo MD 11/22/23 14:04:
Discussed with patient's daughter Pao and son Johnathon at bedside, in agreement with regards to pursuing comfort care. Comfort measures ordered in accordance to family's wishes
Original Note:
Today's Communication/Plan
-
Cancel IR biopsy, as per daughter YUNG patient's family in agreement with regards to pursuing hospice
cont current care for now with the exception of transfusions antibiotics blood draws and further imaging
Likely start comfort measures when daughter/family sees patient today
hospice eval
Assessment / Plan
Assessment / Plan
Physical Exam
General: Appears Chronically Ill mild distress
HEENT: Blood blister present left buccal mucous. Lower lip with scab and area of crusting
Respiratory: Clear and Non Labored Respirations
Cardiac: S1/S2, Regular Rhythm
GI: Soft, Non Tender and Ostomy Left Lower Quadrant dark liquid stools noted
Musculoskeletal: No Clubbing, No Cyanosis and No Edema
Skin: Warm and Dry
Neuro: Awake Alert Conversant
Psych: Calm
Pancytopenia
Neutropenia
Folate deficiency likely contributing but unclear how much can be attributed to patient's current level of deficiency
Anemia of Chronic Disease
-Neutropenic Precautions
-Consult Hematology appreciated transfusing for goal Hgb>7 Plt>10 so far received 2PRBC and 3 single donor Platelets
-Hold methotrexate
-iron studies appreciated iron level wnl but low TIBC likely AOCD
-vitamin b12 wnl
-folic acid deficient, IV supplementation started 11/19
-LDH wnl, haptoglobin pending, and retic count low
Possible GIB, dark stools in ostomy, nurse noted episode bright red blood per rectum gelatinous
-transferred to IMU for closer monitoring 11/19
-initially placed on protonix gtt since transitioned to IV protonix BID as active GI bleeding less likely 11/20
-CRS and GI evals appreciated anticipate improvement if thrombocytopenia improves, but low platelet makes invasive procedures more risky than beneficial at this time
Lower Lip Lesion, concerning for herpes vs mucormycosis vs Folate deficiency
-Follow herpes swab PCR
-ID eval appreciated cont topical acyclovir, hold probiotics iron supplementation
-ENT eval appreciated, cont magic mouthwash
-IV folate supplementation as above
Neutropenic Fever 11/20
-repeating blood cultures
-empiric abx renall dosed vancoymycin zosyn started
CKD Stage III
-Creatinine appears stable at this time
-will cont to monitor
-cont gentle IV hydration while oral intake/feeding is low
COPD, no acute exacerbation
-Continue Anoro Ellipta
Rheumatoid Arthritis
-Methotrexate on hold
Dementia
-Continue donepezil
-Monitor for mood/behavior changes
Anxiety/Depression
-Continue Sertraline, and mirtazapine
Compression Fractures
-Continue lidocaine patch
-Consult PT/OT appreciated SNF rehab
DVT proph: SCDs
Code Status: DNR
Patient approved for bone biopsy tentatively scheduled for tomorrow 11/21 however family/daughter considering hospice, hospice consult requested as per patient's family's wishes.
11/21 discussed with patient's daughter Giovana worsening prognosis neutropenic fever sepsis. Daughter reports progressive decline since February 2023 Dementia dependent with all ADLs. In lieu of significant comorbidities, end stage disease dementia,
Failure to thrive, patient hospice appropriate potentially may be inpt hospice candidate if not imminent. Daughter voiced that family were agreement that they want to pursue hospice for patient (patient herself does not have capacity to make her
own decisions). Discussed regarding starting comfort care, potential patient may further deteriorate on comfort measures, daughter would like to pursue comfort measures but wants to hold off for now to allow time for her and family to see patient
today. Daughter is however in agreement with discontinuing antibiotics transfusions blood draws further imaging pending start of comfort measures.
I spent a total of 60 minutes with the patient or on the floor. More than 50% of this time involved counseling and coordination of care.
Anticipated Discharge: 24 - 48 hours
Subjective/Interval History
-
Date of Service: November 22, 2023
Lethargic arousable few word answers. In mild distress
Objective Data
-
Labs:
Laboratory Results
11/21/23 11/22/23
22:27 04:59
WBC 0.4 L* 0.4 L*
Hgb 8.5 L 7.3 L
Hct 23.4 L 20.3 L*
Plt Count 14 L* D 3 L* D
PT 18.2 H
INR 1.50
Sodium 135
Potassium 3.3 L
Chloride 107
Carbon Dioxide 21 L
BUN 34 H
Creatinine 1.2 H
Glucose 87
Calcium 8.3 L
Vital Signs:
Vital Signs
Temp Pulse Resp BP Pulse Ox
97.7 F 95 22 151/79 93
11/22/23 03:16 11/22/23 06:00 11/22/23 06:00 11/22/23 06:00 11/22/23 06:00
I&O
11/21/23 11/22/23 11/23/23
06:59 06:59 06:59
Intake Total 2455.5 / 2455.5 577 / 577
Output Total 400 / 400
Balance 2055.5 / 2055.5 577 / 577
[2023-11-22] MEDS: STRIVERDI RESPIMAT 2 PUFF INH (07:55)
[2023-11-22] MEDS: SPIRIVA RESPIMAT 2.5 MCG 2 PUFF INH (07:55)
--- NOTE | 2023-11-22 09:24 | W.PN.UPDATE ---
Update Note
Progress Note Update
Pursing comfort measures
I am in agreement
Please recall if there are further questions, ID will no longer actively follow this patient.
[2023-11-22] MEDS: MAGNESIUM OXIDE PO (09:41)
[2023-11-22] MEDS: VITAMIN B-12 PO (09:41)
[2023-11-22] MEDS: ZOLOFT PO (09:42)
--- NOTE | 2023-11-22 09:46 | W.PN.ONC ---
Addendum entered and electronically signed by Babar Valdez DO 11/22/23 12:06:
Chart reviewed. Patient with family at bedside. Comfort measures requested.
Original Note:
Today's Communication / Plan
-
Continue strict neutropenic and bleeding precautions
3/8 Hgb 7.3, PLT 3
s/p 2units PRBCs, 4units PLTs
Transfuse as needed to maintain Hgb >7, PLT >10
Follow CBC w/ diff daily
Folic acid repletion
Viral panel remains pending
Inpatient bone marrow biopsy has been cancelled for today as family wishes to pursue comfort measures/hospice at this time.
Impression
Impression
Severe multifactorial pancytopenia
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
Folate deficiency
Hx dementia
Subjective/Objective
Subjective/Objective
comfort measures
Vital Signs:
Vital Signs
Temp Pulse Resp BP Pulse Ox
97.7 F 98 16 151/79 90
11/22/23 03:16 11/22/23 07:58 11/22/23 07:58 11/22/23 06:00 11/22/23 07:58
Lab Results:
Laboratory Data
WBC 0.4 10^3/uL (4.8-10.8) L* 11/22/23 04:59
Hgb 7.3 g/dL (12.0-16.0) L 11/22/23 04:59
Plt Count 3 10^3/uL (130-400) L* D 11/22/23 04:59
PT 18.2 Sec (11.4-14.6) H 11/22/23 04:59
INR 1.50 11/22/23 04:59
APTT 37.4 Sec (23.4-35.0) H 11/20/23 09:11
eGFR 44.91 11/22/23 04:59
Orders
Orders
Orders From Last 24 Hours
11/21/23 12:00
Cyanocobalamin [Vitamin B-12] 1,000 mcg PO DAILY
[2023-11-22] MEDS: NSS (PRESERVATIVE FREE) 10 ML IV (09:49)
[2023-11-22] MEDS: LIDOCAINE 4% PATCH 1 PATCH TOPICAL (09:49)
[2023-11-22] MEDS: PROTONIX IV 40 MG IV (09:49)
[2023-11-22] MEDS: ZOVIRAX OINTMENT 5% 1 APPLIC TOPICAL ×2 (09:50→11:22)
[2023-11-22] MEDS: KCL ELIXIR 40 MEQ PO (09:50)
[2023-11-22] MEDS: KCL PO (09:51)
--- NOTE | 2023-11-22 10:10 | CM ---
Addendum entered by Laura Yusuf 11/22/23 10:21:
CM Consult completed: DC plan pending; CM will continue to follow and coordinate when decision Inpatient Hospice vs. Home with home hospice is made by family
Original Note:
Spoke with daughter to discuss DC plan to [place] with hospice care from either [facility] or [facility]. Daughter stated that Attending told her that mother was being admitted to Inpatient Hospice.
Per Attending, she was 'concerned that patient would further deteriorate on comfort measures, possibly may qualify for inpt hospice. Also concern that she may become imminent precluding inpt hospice.'
Attending recommends monitoring on comfort measures overnight before deciding disposition. Holding off on start comfort measures till family sees patient today.
--- NOTE | 2023-11-22 10:35 | PTCARENOTE ---
Rec'd pt this AM. very sleepy and lethargic, unable to take PO meds. Family has decided that they likely want hospice/comfort care for pt. Updated family on visitation policy and notified IRAD of cancelled bone marrow biopsy
[2023-11-22] MEDS: NSS 1000 IV (11:36)
--- NOTE | 2023-11-22 15:47 | CHAP ---
Addendum entered by Geri Chong 11/22/23 15:50:
Fr. Fernando Guevara of [facility] is en route to provide Sacrament of the Sick/Last Rites.
Original Note:
Emotional and spiritual support provided for Darya and family at bedside. Prayer blanket given. Texts sent to local priests for Sacrament of the Sick/Last Rites (on-call Saturday plastic fabricator out of town). Waiting response.
[2023-11-22 16:26] LABS: Haptoglobin 296 mg/dL (30-200)
--- NOTE | 2023-11-22 17:06 | PTCARENOTE ---
Family at bedside. Pt transitioned to comfort measures. Support provided
[2023-11-22 17:46] LABS: Parvo B19 Ab, IgM 0.15 IV (<=0.90); Parvo Virus B19 Ab, IgG 3.36 IV (<=0.90)
[2023-11-22] MEDS: ATIVAN 0.5 MG PO (19:39)
[2023-11-22] MEDS: DILAUDID 0.25 MG IV (19:39)
[2023-11-23] VITALS (12 sets, daily range): BP systolic 105–149; BP diastolic 60–81
--- NOTE | 2023-11-23 04:48 | PTCARENOTE ---
No acute events overnight. Patient remains on comfort measures. Prn ativan and dilaudid administered x1. Patient appeared to sleep comfortably throughout the shift.
[2023-11-23] MEDS: DILAUDID 0.25 MG IV ×3 (05:36→18:14)
--- NOTE | 2023-11-23 08:00 | W.PN.HOSP.TC ---
Today's Communication/Plan
-
Remains medically stable following initiation comfort care measures
not requiring prn often
awaiting hospice eval possible SNF vs inpt hospice
Assessment / Plan
Assessment / Plan
Physical Exam
General: Appears Chronically Ill mild distress
HEENT: Blood blister present left buccal mucous. Lower lip with scab and area of crusting
Respiratory: Clear and Non Labored Respirations
Cardiac: S1/S2, Regular Rhythm
GI: Soft, Non Tender and Ostomy Left Lower Quadrant dark liquid stools noted
Musculoskeletal: No Clubbing, No Cyanosis and No Edema
Skin: Warm and Dry
Neuro: Lethargic but arousable nonverbal
Psych: Calm
Pancytopenia
Neutropenia
Folate deficiency likely contributing but unclear how much can be attributed to patient's current level of deficiency
Anemia of Chronic Disease
-Neutropenic Precautions
-Consult Hematology appreciated transfusing for goal Hgb>7 Plt>10 so far received 2PRBC and 3 single donor Platelets
-Hold methotrexate
-iron studies appreciated iron level wnl but low TIBC likely AOCD
-vitamin b12 wnl
-folic acid deficient, IV supplementation started 11/19
-LDH wnl, haptoglobin pending, and retic count low
Possible GIB, dark stools in ostomy, nurse noted episode bright red blood per rectum gelatinous
-transferred to IMU for closer monitoring 11/19
-initially placed on protonix gtt since transitioned to IV protonix BID as active GI bleeding less likely 11/20
-CRS and GI evals appreciated anticipate improvement if thrombocytopenia improves, but low platelet makes invasive procedures more risky than beneficial at this time
Lower Lip Lesion, concerning for herpes vs mucormycosis vs Folate deficiency
-Follow herpes swab PCR
-ID eval appreciated cont topical acyclovir, hold probiotics iron supplementation
-ENT eval appreciated, cont magic mouthwash
-IV folate supplementation as above
Neutropenic Fever 11/20
-repeating blood cultures
-empiric abx renall dosed vancoymycin zosyn started
CKD Stage III
-Creatinine appears stable at this time
-will cont to monitor
-cont gentle IV hydration while oral intake/feeding is low
COPD, no acute exacerbation
-Continue Anoro Ellipta
Rheumatoid Arthritis
-Methotrexate on hold
Dementia
-Continue donepezil
-Monitor for mood/behavior changes
Anxiety/Depression
-Continue Sertraline, and mirtazapine
Compression Fractures
-Continue lidocaine patch
-Consult PT/OT appreciated SNF rehab
severe protein calorie malnutrition of chronic illness
DVT proph: SCDs
Code Status: DNR
Patient approved for bone biopsy tentatively scheduled for tomorrow 11/21 however family/daughter considering hospice, hospice consult requested as per patient's family's wishes.
11/21 discussed with patient's daughter Giovana worsening prognosis neutropenic fever sepsis. Daughter reports progressive decline since February 2023 Dementia dependent with all ADLs. In lieu of significant comorbidities, end stage disease dementia,
Failure to thrive, patient hospice appropriate potentially may be inpt hospice candidate if not imminent. Daughter voiced that family were agreement that they want to pursue hospice for patient (patient herself does not have capacity to make her
own decisions). Discussed regarding starting comfort care, potential patient may further deteriorate on comfort measures, daughter would like to pursue comfort measures but wants to hold off for now to allow time for her and family to see patient
today. Daughter is however in agreement with discontinuing antibiotics transfusions blood draws further imaging pending start of comfort measures.
11/22 Patient remains stable following initiation comfort care measures potentially appropriate for SNF hospice vs Inpt, pending hospice eval. Discussed with and updated daughter YUNG Akhtar
I spent a total of 50 minutes with the patient or on the floor. More than 50% of this time involved counseling and coordination of care.
Anticipated Discharge: Within 24 hours
Subjective/Interval History
-
Date of Service: November 23, 2023
Seen and examined at bedside in no acute distress resting comfortably in bed. lethargic but arousable nonverbal. VSS
Objective Data
-
Vital Signs:
Vital Signs
Temp Pulse Resp BP Pulse Ox
98.9 F 99 25 128/63 94
11/22/23 23:46 11/23/23 04:00 11/23/23 04:00 11/23/23 04:00 11/22/23 23:46
I&O
11/22/23 11/23/23 11/24/23
06:59 06:59 07:59
Intake Total 577 / 577
Balance 577 / 577
[2023-11-23 09:51] LABS: HSV 1 Subtype by PCR Not Detected; HSV 2 Subtype by PCR Not Detected; Herpes Simplex Source Serum
[2023-11-23 09:59] LABS: HSV 1 Subtype by PCR Not Detected; HSV 2 Subtype by PCR Not Detected; Herpes Simplex Source Lesion Swab
[2023-11-23 11:46] LABS: Varicella-Zoster Source Lesion Swab; Varicella-Zoster Virus by PCR Not Detected
--- NOTE | 2023-11-23 13:58 | CHAP ---
Darya was sleeping - I spoke gently at her side and prayed for her.
--- NOTE | 2023-11-23 14:47 | PTOTSP ---
CHART REVIEWED AND SPOKE WITH RN. PATIENT IS NOW ON COMFORT MEASURES. WILL DISCHARGE PATIENT FROM THERAPY SERVICES AT THIS TIME.
--- NOTE | 2023-11-23 18:48 | PTCARENOTE ---
Patient remains on comfort measures. Medicated x2 with IV dilaudid. Patient has pain with turning and repositioning. Patient daughter Tonya in room for most of the day. Family would like to do in house Hospice. Case management notified.
Hospice to come tomorrow.
[2023-11-23] MEDS: DILAUDID 0.5 MG IV (20:04)
[2023-11-24] VITALS (9 sets, daily range): BP systolic 111–148; BP diastolic 59–76
[2023-11-24] MEDS: DILAUDID 0.5 MG IV ×5 (03:51→22:24)
--- NOTE | 2023-11-24 07:34 | W.PN.HOSP.TC ---
Today's Communication/Plan
-
cont comfort care measures
Ok to downgrade to 2N/S if bed available.
hospice eval
Assessment / Plan
Assessment / Plan
Physical Exam
General: Appears Chronically Ill mild distress
HEENT: Blood blister present left buccal mucous. Lower lip with scab and area of crusting
Respiratory: Clear and Non Labored Respirations
Cardiac: S1/S2, Regular Rhythm
GI: Soft, Non Tender and Ostomy Left Lower Quadrant dark liquid stools noted
Musculoskeletal: No Clubbing, No Cyanosis and No Edema
Skin: Warm and Dry
Neuro: Lethargic but arousable nonverbal
Psych: Calm
Pancytopenia
Neutropenia
Folate deficiency likely contributing but unclear how much can be attributed to patient's current level of deficiency
Anemia of Chronic Disease
-Neutropenic Precautions
-Consult Hematology appreciated transfusing for goal Hgb>7 Plt>10 so far received 2PRBC and 3 single donor Platelets
-Hold methotrexate
-iron studies appreciated iron level wnl but low TIBC likely AOCD
-vitamin b12 wnl
-folic acid deficient, IV supplementation started 11/19
-LDH wnl, haptoglobin pending, and retic count low
Possible GIB, dark stools in ostomy, nurse noted episode bright red blood per rectum gelatinous
-transferred to IMU for closer monitoring 11/19
-initially placed on protonix gtt since transitioned to IV protonix BID as active GI bleeding less likely 11/20
-CRS and GI evals appreciated anticipate improvement if thrombocytopenia improves, but low platelet makes invasive procedures more risky than beneficial at this time
Lower Lip Lesion, concerning for herpes vs mucormycosis vs Folate deficiency
-Follow herpes swab PCR
-ID eval appreciated cont topical acyclovir, hold probiotics iron supplementation
-ENT eval appreciated, cont magic mouthwash
-IV folate supplementation as above
Neutropenic Fever 11/20
-repeating blood cultures
-empiric abx renall dosed vancoymycin zosyn started
CKD Stage III
-Creatinine appears stable at this time
-will cont to monitor
-cont gentle IV hydration while oral intake/feeding is low
COPD, no acute exacerbation
-Continue Anoro Ellipta
Rheumatoid Arthritis
-Methotrexate on hold
Dementia
-Continue donepezil
-Monitor for mood/behavior changes
Anxiety/Depression
-Continue Sertraline, and mirtazapine
Compression Fractures
-Continue lidocaine patch
-Consult PT/OT appreciated SNF rehab
severe protein calorie malnutrition of chronic illness
DVT proph: SCDs
Code Status: DNR
Patient approved for bone biopsy tentatively scheduled for tomorrow 11/21 however family/daughter considering hospice, hospice consult requested as per patient's family's wishes.
11/21 discussed with patient's daughter Giovana worsening prognosis neutropenic fever sepsis. Daughter reports progressive decline since February 2023 Dementia dependent with all ADLs. In lieu of significant comorbidities, end stage disease dementia,
Failure to thrive, patient hospice appropriate potentially may be inpt hospice candidate if not imminent. Daughter voiced that family were agreement that they want to pursue hospice for patient (patient herself does not have capacity to make her
own decisions). Discussed regarding starting comfort care, potential patient may further deteriorate on comfort measures, daughter would like to pursue comfort measures but wants to hold off for now to allow time for her and family to see patient
today. Daughter is however in agreement with discontinuing antibiotics transfusions blood draws further imaging pending start of comfort measures.
11/22 Patient remains stable following initiation comfort care measures potentially appropriate for SNF hospice vs Inpt, pending hospice eval. Discussed with daughter YUNG Akhtar
11/23 VSS remain stable, patient not requiring prn medications often (pain meds, ativan for anxiety) likely appropriate for SNF hospice at this time. Discussed with daughter. Prognosis days to weeks, possible month but unlikely.
I spent a total of 50 minutes with the patient or on the floor. More than 50% of this time involved counseling and coordination of care.
Anticipated Discharge: 24 - 48 hours
Subjective/Interval History
-
Date of Service: November 24, 2023
no acute distress appears comfortable at this time, sedated, nonverbal.
Objective Data
-
Vital Signs:
Vital Signs
Temp Pulse Resp BP Pulse Ox
97.5 F 105 14 122/59 90
11/23/23 23:10 11/24/23 04:00 11/24/23 04:00 11/24/23 04:00 11/23/23 07:09
I&O
11/23/23 11/24/23 11/25/23
05:59 06:59 06:59
Intake Total
Output Total
Balance
[2023-11-24] MEDS: ATIVAN 0.5 MG IV (09:36)
--- NOTE | 2023-11-24 09:48 | PTCARENOTE ---
Pt awoke anxious, restless, calling for help and complaining of pain. RN gave PRN meds as ordered. Repositioned pt, assisted with drinking water and remained with pt at bedside until calm and relaxed. Pt now resting comfortably.
--- NOTE | 2023-11-24 12:12 | HOSPNOTE ---
Patients chart was reviewed by Hospice nurse and Dr Godinez hospice dental assistant medical assistant. Patient meets criteria for Hospice at home, at this time she does not meet criteria for GIP. Hospice will continue to assess daily. Will contact family today.
--- NOTE | 2023-11-24 13:01 | HOSPNOTE ---
Spoke with the patients daughter Tonya. She reports the patient will be going back to the [facility] using their preferred Hospice.
--- NOTE | 2023-11-24 15:12 | CM ---
CM following re: d/c planning
Chart reviewed
Pt discharge anticipated within the next 24-48 hours
manager environmental affairs met with the patient's daughter Giovana at bedside to discuss hospice options and the goal is for the patient to return to the [facility] and sign onto the hospice agency they are contracted with
CM spoke with administrative liaison Salazar with [facility] [phone] and faxed over requested clinicals to [phone]
CM will continue to follow patient progress; assisting with d/c back to [facility]
PLAN; d/c to [facility] on hospice care
[2023-11-25] VITALS (9 sets, daily range): BP systolic 124–149; BP diastolic 59–85
[2023-11-25] MEDS: DILAUDID 0.5 MG IV ×5 (03:07→12:13)
--- NOTE | 2023-11-25 05:46 | PTCARENOTE ---
No acute event overnight. Patient remains on comfort care and appeared comfortable throughout the night.
--- NOTE | 2023-11-25 11:04 | PTCARENOTE ---
Dialudid IV given x2. Pt obtunded most of the time, may open eyes very briefly. occasional moaning. some air hunger signs noted. Meds given. family updated at bedside.
--- NOTE | 2023-11-25 11:31 | CM ---
Patient from [facility] with Hx dementia with Dx Pancytopenia, Neutropenia. Comfort care. Receiving IV Dilaudid.
Per Dr Ospina & Hospice nurse Beatriz, patient will need to remain here in comfort care. Patient required multiple doses IV Dilaudid and will need MS gtt. Message from Beatriz; patient is actively dying.
Spoke with daughter Giovana who is aware of plan for her mother to remain here in comfort care for pain control. Offered to call maintenance tech and daughter says that a body corporate manager already saw her mother on Saturday.
Spoke with Danny Cabrera [facility] and [facility]; informed them that patient will need to remain here in comfort care.
Plan comfort care.
[2023-11-25] MEDS: DILAUDID 50 IV (12:58)
--- NOTE | 2023-11-25 14:08 | W.PN.HOSP.TC ---
Today's Communication/Plan
-
monitor vitals
see plan
start Dilaudid gtt
currently on comfort; hospice assisting
Spoke with granddaughter at bedside
Assessment / Plan
Assessment / Plan
Physical Exam
General: Appears Chronically Ill
Respiratory: Clear and Non Labored Respirations
Cardiac: S1/S2, Regular Rhythm
GI: Soft, Non Tender and Ostomy Left Lower Quadrant dark liquid stools noted
Neuro: Lethargic
Psych: Calm
Pancytopenia
Neutropenia
Folate deficiency likely contributing but unclear how much can be attributed to patient's current level of deficiency
Anemia of Chronic Disease
-Neutropenic Precautions
-Consult Hematology appreciated transfusing for goal Hgb>7 Plt>10 so far received 2PRBC and 3 single donor Platelets
-Hold methotrexate
-iron studies appreciated iron level wnl but low TIBC likely AOCD
-vitamin b12 wnl
-folic acid deficient, IV supplementation started 11/19
-LDH wnl, haptoglobin pending, and retic count low
Possible GIB, dark stools in ostomy, nurse noted episode bright red blood per rectum gelatinous
-transferred to IMU for closer monitoring 11/19
-initially placed on protonix gtt since transitioned to IV protonix BID as active GI bleeding less likely 11/20
-CRS and GI evals appreciated anticipate improvement if thrombocytopenia improves, but low platelet makes invasive procedures more risky than beneficial at this time
Lower Lip Lesion, concerning for herpes vs mucormycosis vs Folate deficiency
-Follow herpes swab PCR
-ID eval appreciated cont topical acyclovir, hold probiotics iron supplementation
-ENT eval appreciated, cont magic mouthwash
-IV folate supplementation as above
Neutropenic Fever 11/20
-repeating blood cultures
-empiric abx renall dosed vancoymycin zosyn started
CKD Stage III
-Creatinine appears stable at this time
-will cont to monitor
-cont gentle IV hydration while oral intake/feeding is low
COPD, no acute exacerbation
-Continue Anoro Ellipta
Rheumatoid Arthritis
-Methotrexate on hold
Dementia
-Continue donepezil
-Monitor for mood/behavior changes
Anxiety/Depression
-Continue Sertraline, and mirtazapine
Compression Fractures
-Continue lidocaine patch
-Consult PT/OT appreciated SNF rehab
severe protein calorie malnutrition of chronic illness
DVT proph: SCDs
Code Status: DNR
Patient approved for bone biopsy tentatively scheduled for tomorrow 11/21 however family/daughter considering hospice, hospice consult requested as per patient's family's wishes.
11/21 discussed with patient's daughter Giovana worsening prognosis neutropenic fever sepsis. Daughter reports progressive decline since February 2023 Dementia dependent with all ADLs. In lieu of significant comorbidities, end stage disease dementia,
Failure to thrive, patient hospice appropriate potentially may be inpt hospice candidate if not imminent. Daughter voiced that family were agreement that they want to pursue hospice for patient (patient herself does not have capacity to make her
own decisions). Discussed regarding starting comfort care, potential patient may further deteriorate on comfort measures, daughter would like to pursue comfort measures but wants to hold off for now to allow time for her and family to see patient
today. Daughter is however in agreement with discontinuing antibiotics transfusions blood draws further imaging pending start of comfort measures.
11/22 Patient remains stable following initiation comfort care measures potentially appropriate for SNF hospice vs Inpt, pending hospice eval. Discussed with daughter YUNG Akhtar
11/23 VSS remain stable, patient not requiring prn medications often (pain meds, ativan for anxiety) likely appropriate for SNF hospice at this time. Discussed with daughter. Prognosis days to weeks, possible month but unlikely.
11/24: patient has been on comfort. Initially plan was for patient to be discharged on hospice. Currently patient is requiring IV Dilaudid and has air hunger this morning. Spoke with [facility] and will start patient on Dilaudid drip.
Spoke with granddaughter at bedside
I spent a total of 52 minutes with the patient or on the floor. More than 50% of this time involved counseling and coordination of care.
Anticipated Discharge: Within 24 hours
Subjective/Interval History
-
Date of Service: November 25, 2023
comfortable
Objective Data
-
Vital Signs:
Vital Signs
Temp Pulse Resp BP Pulse Ox
98.9 F 117 13 149/77 90
11/25/23 07:41 11/25/23 08:00 11/25/23 08:00 11/25/23 08:00 11/24/23 08:03
I&O
11/24/23 11/25/23 11/26/23
06:59 06:59 06:59
Intake Total
Output Total 475 / 475
Balance -475 / -475
[2023-11-25] MEDS: TYLENOL/FEVERALL 650 MG RECTAL (23:30)
[2023-11-25] MEDS: DILAUDID 0.25 MG IV (23:36)
[2023-11-26] VITALS: BP 114/48
--- NOTE | 2023-11-26 03:15 | PTCARENOTE ---
pt on comfort care- dilaudid gtt infusing at step one. pt tele ringing asystole, POSTDOCTORAL RESEARCH ASSOCIATE to bedside to pronounce. gift of life called.
--- NOTE | 2023-11-26 03:26 | W.PN.DEATH ---
Pronouncement of
-
Called to see patient to pronounce.
No spontaneous heart tones or respirations noted.
Patient not responsive to verbal stimuli.
Patient is pronounced .
Time of : 03:22
Date of : 11/26/23
Cause of : Anemia of Chronic Disease
Neutropenia
Pancytopenia
Family Notified: Yes (daughter, Giovana Goel via phone call)
--- NOTE | 2023-11-26 03:32 | W.PN.UPDATE ---
Update Note
Progress Note Update
Nursing notified house provider that patient had . At bedside to pronounce, TOD [id number]. Family notified via phone. Hospice and Attending team updated. note completed, certificate completed. Phone call to daughter, Giovana Goel,
to notify of passing. Expressed condolences to Giovana and family. Able to answer all her questions effectively. Update given to nursing.
--- NOTE | 2023-11-26 10:42 | W.DCSUMMARY ---
Addendum entered and electronically signed by Scotty Ospina MD 11/26/23 15:13:
Discharge diagnosis:
Severe pancytopenia
GI bleed
Worsening dementia
Failure to thrive
Original Note:
Discharge Summary
Discharge Data
Date of Admission: 11/19/23
Date of Discharge: 11/26/23
-
Pending Results: No
Hospital Course
Hospital course:
83-year-old female past medical history dementia, COPD, rheumatoid arthritis, recent colostomy for colovaginal fistula came to the hospital with bruising and nosebleed and painful oral lesion. Patient was severely pancytopenic on this
hospitalization. Patient was seen by hematology/oncology throughout hospitalization. For patient or lesions patient was seen by infectious disease and ENT. Patient was started on topical acyclovir for lesions. Patient also had neutropenic fever
for which she was started on antibiotics. On this hospitalization patient also developed possible GI bleeding given dark stools in the ostomy. Patient was seen by colorectal and GI who both recommended the patient symptoms could get better if
thrombocytopenia improves and they wanted to hold off on any invasive procedures given no clear benefit. Hematology also discussed the possibility of bone marrow biopsy however later on family refused any aggressive measures and wanted to consider
comfort measures/hospice. This was discussed with patient's daughter in detail and she understood patient progressive declining status since February 2023. Daughter and family were all in agreement in pursuing comfort measures/hospice. Dose on
hospice followed up with the patient and family throughout hospitalization. Patient was kept on comfort measures and was eventually started on Dilaudid drip. Patient later on 11/26/2023.
Discharge Plan
-
Patient Disposition:
Date/Time
Date/Time: 11/26/23 05:38
Discharge Date and Time
Discharge Date/Time: 11/26/23 05:38
== END 2023-11-26 05:38 | disposition expired | DRG 808 ==
LOC: IMU 22:07
PROVIDERS: Emergency Medicine; Internal Medicine; Physician Assistant Medical; Radiology Vascular & Interventional Radiology; ADMITTING PHYSICIAN Hospitalist; ATTENDING PHYSICIAN Internal Medicine; CONSULT PHYSICIAN Internal Medicine Gastroenterology; CONSULT PHYSICIAN Internal Medicine Hematology & Oncology; CONSULT PHYSICIAN Otolaryngology Facial Plastic Surgery; CONSULT PHYSICIAN Student in an Organized Health Care Education/Training Program; EMERGENCY PHYSICIAN Emergency Medicine; FAMILY PHYSICIAN Internal Medicine; OTHER PHYSICIAN Surgery
PROC: 30233R1 Transfusion of Nonautologous Platelets into Peripheral Vein, Percutaneous Approach (ICD-10-PCS; 2023-11-19)
PROC: 30233N1 Transfusion of Nonautologous Red Blood Cells into Peripheral Vein, Percutaneous Approach (ICD-10-PCS; 2023-11-20)
DX: D61.818 Other pancytopenia (principal); E43 Unspecified severe protein-calorie malnutrition; F03.94 Unspecified dementia, unspecified severity, with anxiety; N17.9 Acute kidney failure, unspecified; M48.56XA Collapsed vertebra, not elsewhere classified, lumbar region, initial encounter for fracture; K92.2 Gastrointestinal hemorrhage, unspecified; R64 Cachexia; Z68.1 Body mass index [BMI] 19.9 or less, adult; Z51.5 Encounter for palliative care; I12.9 Hypertensive chronic kidney disease with stage 1 through stage 4 chronic kidney disease, or unspecified chronic kidney disease; G89.29 Other chronic pain; D63.8 Anemia in other chronic diseases classified elsewhere; J44.9 Chronic obstructive pulmonary disease, unspecified; N18.30 Chronic kidney disease, stage 3 unspecified; D70.9 Neutropenia, unspecified; R62.7 Adult failure to thrive; E11.22 Type 2 diabetes mellitus with diabetic chronic kidney disease; K12.30 Oral mucositis (ulcerative), unspecified; N28.1 Cyst of kidney, acquired; E83.39 Other disorders of phosphorus metabolism; D89.89 Other specified disorders involving the immune mechanism, not elsewhere classified; B00.1 Herpesviral vesicular dermatitis; N20.0 Calculus of kidney; E53.8 Deficiency of other specified B group vitamins; R04.0 Epistaxis; F32.A Depression, unspecified; H40.9 Unspecified glaucoma; Z66 Do not resuscitate; Z79.631 Long term (current) use of antimetabolite agent; Z87.891 Personal history of nicotine dependence; Z93.3 Colostomy status; Z11.52 Encounter for screening for COVID-19; Z90.710 Acquired absence of both cervix and uterus; Z90.49 Acquired absence of other specified parts of digestive tract
CPT/HCPCS: 36430; 71046; 80048; 80053; 80202; 82607; 82728; 82746; 83010; 83036; 83540; 83550; 83615; 83735; 84100; 84443; 84550; 85014; 85018; 85025; 85027; 85045; 85610; 85730; 86747; 86850; 86870; 86900; 86901; 86920; 86922; 87040; 87077; 87205; 87502; 87529; 87798; 87811; 93005; 94640; 96360; 97163; 97167; 99285; P9016; P9073